=== PATIENT | female | born 1945 | race Caucasian/White ===

== ENCOUNTER → 2016-09-24 | Outpatient (CLI) | payer OTHER ==
[~2016-09-24] MED LIST: ASPI325T39 PO; ATOR-22 PO; LISI10TA PO; METO50TA16 PO
[2016-09-24 18:33] LABS: ALT/SGPT 17 U/L (12-78); BLOOD UREA NITROGEN 18 mg/dl (7-18); BUN/CREATININE RATIO 14.7 (10-20); CALCIUM 9.4 mg/dl (8.5-10.1); CARBON DIOXIDE 24 mmol/L (21-32); CHLORIDE 98 mmol/L (98-107); CHOLESTEROL 164 mg/dl (0-200); GLUCOSE 85 mg/dl (70-99); POTASSIUM 4.8 mmol/L (3.5-5.1); SODIUM 132 mmol/L (136-145); TRIGLYCERIDES 102 mg/dl (0-150); VERY LOW DENSITY LIPOPROT CALC 20 mg/dl
[2016-09-24 18:36] LABS: ALKALINE PHOSPHATASE 157 U/L (45-117); AST/SGOT 19 U/L (15-37); HDL CHOLESTEROL 55 mg/dl
== END | disposition home or self-care (01) ==
LOC: C.LABSPEC 17:29
PROVIDERS: ATTEND Internal Medicine
DX: I25.10 Atherosclerotic heart disease of native coronary artery without angina pectoris (principal); I10 Essential (primary) hypertension; E78.5 Hyperlipidemia, unspecified

== ENCOUNTER → 2016-10-29 | Outpatient (CLI) | payer OTHER ==
--- NOTE | 2016-10-30 08:08 | MAMMOGRAPHY REPORT ---
BILATERAL DIGITAL SCREENING MAMMOGRAM WITH CAD: 10/29/2016 CLINICAL HISTORY: Routine screening. Patient has no complaints. TECHNIQUE: Bilateral CC and MLO views were obtained. Current study was also evaluated with a Compute r Aided Detection (CAD) system. COMPARISON: Comparison is made to exams dated: 09/07/2013 mammogram, 12/14/2011 mammogram - [facility], 05/07/2008, 05/05/2010 mammogram - [facility], 09/13/2006, and 007. BREAST COMPOSITION: There are scattered areas of fibroglandular density in both breasts. FINDINGS: There are a few benign-appearing rodlike calcifications in both breasts. No suspicious ma ss, architectural distortion or cluster of suspicious microcalcifications is seen. IMPRESSION: ACR BI-RADS CATEGORY 2: BENIGN There is no mammographic evidence of malignancy. A 1 year screening mammogram is recommended. The pa tient will receive written notification of the results. Approximately 10% of breast cancers are not detected with mammography. A negative mammographic report should not delay biopsy if a clinically suggestive mass is present. Cristina Berry M.D. ay/:10/29/2016 16:13:05 Quill Machine Tender: Opal Rosa, [facility] letter sent: Normal 1/2 BI-RADS Code: ACR BI-RADS Category 2: Benign
== END | disposition home or self-care (01) ==
LOC: C.MAMM 11:29
PROVIDERS: ATTEND Internal Medicine
DX: Z12.31 Encounter for screening mammogram for malignant neoplasm of breast (principal)

== ENCOUNTER → 2017-03-24 | Day surgery (SDC) | payer OTHER ==
[2017-03-09 07:33] VITALS: Ht 162.6 cm; Wt 67.7 kg
[~2017-03-24] VITALS: Ht 162.6 cm; Wt 67.7 kg
[~2017-03-24] MED LIST changes: +500ML BSS 0.3ML EPI 1:1000PF IRRIG ONE; +ACETAMINOPHEN 325 MG TAB PO PRN; +AMVISC PLUS 0.8ML SYRINGE INT OCU ONE; +ATROPINE SULFATE 0.1 MG/ML 5ML SYR IV PRN; +BSS FLUSH ONE; +ENDOCOAT 0.85ML SYRINGE INT OCU ONE; +EpHEDrine SULFATE INJ 50 MG/ML AMP IV PRN; +EpINEphrine INJ 1MG/ML AMP 1 MG/ML AMP ONE; +LACTATED RINGER'S 1000ML 500 ML IV SCH; +LIDOCAINE 4% OP SOLN DROP CHARGE ONE; +LIDOCAINE 4% OP SOLN DROP CHARGE OPR SCH; +LIDOCAINE HCL 1% MPF 2 ML VIAL ONE; +MIDAZOLAM HCL 1 MG/ML 2ML VIAL ONE; +MIX: 4ML BSS 1ML EPI 1:1000 PF TOP ONE; +MOXIFLOXACIN OPH SOLN PER DROP CHARGE ONE; +POVIDONE-IODINE OP SOLN 30 ML BTL ONE; +PROPARACAINE 0.5% OP SOLN PER DROP CHARGE OPR SCH; +TOBRAMYCIN/DEXAMETHASONE OPH OINT PER APPLN CHARGE ONE
[2017-03-24] MEDS: PHENYLEPHRINE HCL 2.5% OP SOLN PER DROP CHARGE OPR SCH ×3 (06:32→06:42)
[2017-03-24] MEDS: TROPICAMIDE 1% OP SOLN PER DROP CHARGE OPR SCH ×3 (06:33→06:43)
[2017-03-24] MEDS: CYCLOPENTOLATE HCL 1% OP SOLN PER DROP CHARGE OPR SCH ×3 (06:34→06:44)
[2017-03-24] MEDS: MOXIFLOXACIN OPH SOLN PER DROP CHARGE OPR SCH ×3 (06:35→06:45)
--- NOTE | 2017-03-24 06:38 | History & Physical Bridge - SC ---
H&P Re-Evaluation Bridge Note: I have examined the patient, reviewed the History & Physical and in the interval since the performance of the History & Physical I have noted the following changes of clinical significance: No changes noted
--- NOTE | 2017-03-24 07:25 | [facility] Post Operative Brief Note ---
Immediate Operative Summary Operative Date Mar 24, 2017. Pre-Operative Diagnosis Cataract Right Eye Post-Operative Diagnosis Same Procedure(s) Performed Right Cataract Phacoemulsification With Intraocular Lens Implant Surgeon Dr. Melo Elevated Guard Surgeon(s) None Estimated Blood Loss 0 mL Findings right cataract Specimens None Complication(s) None Disposition
--- NOTE | 2017-03-24 07:26 | [facility] Operative Report ---
Operative Report Date of Service Mar 24, 2017. Operative Report DATE OF OPERATION: 03/24/17 PREOPERATIVE DIAGNOSIS: Senile nuclear cataract, right eye POSTOPERATIVE DIAGNOSIS: Senile nuclear cataract, right eye PROCEDURE PERFORMED: Phacoemulsification with intraocular lens implantation, right eye SURGEON: Dr. Osman Melo ANESTHESIA: Topical with 1% intracameral lidocaine and monitored anesthesia care COMPLICATIONS: None DESCRIPTION OF PROCEDURE: After positively identifying the patient both verbally and by wristband in the preoperative area, the right eye was marked as the operative eye. The patient was then brought back to the operating room by the anesthesia and nursing staff where they were given a drop of Lidocaine and betadine into the operative eye. They were then sterilely prepped and draped in the standard fashion typical for ophthalmic surgery. Steri-strips were placed along the upper eyelids to keep the lashes back, and a lid speculum was placed into the operative eye. At this point, a documented time out was performed with members of the ophthalmology, nursing, and anesthesia staffs all agreeing upon the correct patient, correct location for surgery, correct procedure, and correct type and power of intraocular lens to be implanted. The microscope was then swung into position. First, a paracentesis wound was made using a sideport blade. Then, in sequence, 1% preservative-free lidocaine followed by Endocoat viscoelastic was injected into the anterior chamber. Next , the main incision was made with a keratome blade in triplanar fashion. A Malyugin ring was inserted due to poor pupil dilation. A sharp cystotome was introduced into the eye and used to create a tear in the anterior capsule, which was directed into a continuous curvilinear capsulorrhexis using Utrata forceps. Hydrodissection was then performed with BSS on a flat-tip cannula. Next, the phacoemulsification handpiece was introduced into the eye and used to remove the nucleus in a [id number] fashion. This was done without complication and then the irrigation-aspiration handpiece was introduced into the eye and used to remove all remaining cortical and epinuclear material. Amvisc was then injected into the anterior chamber as well as into the capsular bag and using the lens injector system, an MX60 26.5 D lens, serial number [id number], and expiration date 03/2019 was injected into the capsular bag and rotated into the correct position. The Malyugin ring was removed. Next, the irrigation-aspiration handpiece was used to remove all remaining Amvisc. BSS was used to hydrate the main wound, and then BSS was injected into the paracentesis site to reach physiologic pressure and then the main wound was checked and found to be watertight. The patient was given drops of Vigamox and Tobradex ointment into the operative eye, and then the surrounding area was cleaned and dried. A clear plastic shield was placed over the eye and the patient was then sat up and taken from the operating room by the anesthesia staff having tolerated the procedure well and suffering no complications. DISPOSITION: The patient was returned to the recovery room in stable condition. I attest to the content of the Intraoperative Record and any orders documented therein. Any exceptions are noted below.
--- NOTE | 2017-03-24 07:27 | Discharge Instructions-SurgCtr ---
Discharge Instructions Date of Service Mar 24, 2017. Visit Reason for Visit: Cataract Right Eye Discharge Discharge Diagnosis / Problem: right cataract Discharge Goals Goal(s): Decrease discomfort, Improve function Activity Recommendations Activity Limitations: as noted below Anesthesia . Post Anesthesia Instructions: If you have had General Anesthesia or IV Sedation: * Do not drive today. * Resume driving when surgeon permits. * Do not make important decisions or sign legal documents today. * Call surgeon for: 1. Temperature elevations greater than 101 degrees F. 2. Uncontrollable pain. 3. Excessive bleeding. 4. Persistent nausea and vomiting. 5. Medication intolerance (nausea, vomiting or rash). * For nausea and vomiting use only clear liquids such as: tea, soda, bouillon until nausea subsides, then gradually increase diet as tolerated. * If you have any concerns or questions, call your surgeon's office. If physician is unavailable and it is an emergency, call 911 or go to the nearest emergency room. . Instructions / Follow-Up Instructions / Follow-Up ACTIVITY RECOMMENDATIONS: * Light activities. * You may walk outside, read, watch television. * You may notice redness on the white part of the eye and some blurry vision - this is normal. MEDICATIONS: Resume previous medications unless instructed otherwise by your surgeon. Start all eye drops at 9:30 am today: * Eye drops (today): Prednisone - one drop in operative eye every 2 hours while awake Ofloxacin - one drop in operative eye every 2 hours while awake Prolensa - one drop in operative eye daily SPECIAL CARE INSTRUCTIONS: * Tape plastic shield over eye to sleep at night. Call your doctor at with any concerns or problems. FOLLOW UP VISIT: Follow-up with Dr Melo at [facility] as scheduled. Diet Recommendations Home Diet: no limitations Procedures Procedures Performed: Right Cataract Phacoemulsification With Intraocular Lens Implant Pending Studies Studies pending at discharge: no Medical Emergencies . Who to Call and When: Medical Emergencies: If at any time you feel your situation is an emergency, please call 911 immediately. . Non-Emergent Contact Non-Emergency issues call your: Surgeon . . "Provider Documentation" section prepared by Osman Melo. .
[2017-03-24 07:28] VITALS: TEMP 36.4
--- NOTE | 2017-03-24 07:43 | Anesthesiology Progress Note ---
Anesthesia Post Op Note Date & Time Mar 24, 2017 at 07:43 Vital Signs Pain Intensity: 0 Vital Signs Past 12 Hours Date Time Temp Pulse Resp B/P (MAP) Pulse Ox O2 Delivery O2 Flow Rate FiO2 03/24/17 07:28 36.4 56 24 162/78 (106) 98 Room Air 03/24/17 06:24 36.4 61 20 164/79 (107) 98 Room Air Notes Mental Status: alert / awake / arousable, participated in evaluation Nausea / Vomiting: adequately controlled Pain: adequately controlled Airway Patency, RR, SpO2: stable & adequate BP & HR: stable & adequate Hydration State: stable & adequate Anesthetic Complications: no major complications apparent
[2017-03-24 07:54] VITALS: BP 167/90; PULSE 55; O2SAT 98
== END | disposition home or self-care (01) ==
LOC: X.SURG 06:12
PROVIDERS: ATTEND Ophthalmology
DX: H25.11 Age-related nuclear cataract, right eye (principal); E78.00 Pure hypercholesterolemia, unspecified; I10 Essential (primary) hypertension; Z90.710 Acquired absence of both cervix and uterus; F17.210 Nicotine dependence, cigarettes, uncomplicated; Z79.82 Long term (current) use of aspirin; E78.5 Hyperlipidemia, unspecified; I25.10 Atherosclerotic heart disease of native coronary artery without angina pectoris

== ENCOUNTER → 2017-04-07 | Day surgery (SDC) | payer OTHER ==
[2017-04-02 10:56] VITALS: Ht 162.6 cm; Wt 67.7 kg
[~2017-04-07] VITALS: Ht 162.6 cm; Wt 67.7 kg
[~2017-04-07] MED LIST changes: +LABETALOL HCL IV 5 MG/ML 20ML IV ONE; +LIDOCAINE 4% OP SOLN DROP CHARGE OPL SCH; -LIDOCAINE 4% OP SOLN DROP CHARGE OPR SCH; +PROPARACAINE 0.5% OP SOLN PER DROP CHARGE OPL SCH; -PROPARACAINE 0.5% OP SOLN PER DROP CHARGE OPR SCH
[2017-04-07] MEDS: PHENYLEPHRINE HCL 2.5% OP SOLN PER DROP CHARGE OPL SCH ×3 (08:51→09:01)
[2017-04-07] MEDS: TROPICAMIDE 1% OP SOLN PER DROP CHARGE OPL SCH ×3 (08:52→09:02)
[2017-04-07] MEDS: CYCLOPENTOLATE HCL 1% OP SOLN PER DROP CHARGE OPL SCH ×3 (08:53→09:03)
[2017-04-07] MEDS: MOXIFLOXACIN OPH SOLN PER DROP CHARGE OPL SCH ×3 (08:54→09:04)
--- NOTE | 2017-04-07 09:53 | [facility] Post Operative Brief Note ---
Immediate Operative Summary Operative Date Apr 07, 2017. Pre-Operative Diagnosis Cataract Left Eye Post-Operative Diagnosis Same Procedure(s) Performed Left Cataract Phacoemulsification With Intraocular Lens Implant Surgeon Dr. Melo Senior Quality Control Technician Surgeon(s) None Estimated Blood Loss 0 mL Findings left cataract Specimens None Complication(s) None Disposition
--- NOTE | 2017-04-07 09:54 | [facility] Operative Report ---
Operative Report Date of Service Apr 07, 2017. Operative Report DATE OF OPERATION: 04/07/17 PREOPERATIVE DIAGNOSIS: Senile nuclear cataract, left eye POSTOPERATIVE DIAGNOSIS: Senile nuclear cataract, left eye PROCEDURE PERFORMED: Phacoemulsification with intraocular lens implantation, left eye SURGEON: Dr. Osman Melo ANESTHESIA: Topical with 1% intracameral lidocaine and monitored anesthesia care COMPLICATIONS: None DESCRIPTION OF PROCEDURE: After positively identifying the patient both verbally and by wristband in the preoperative area, the left eye was marked as the operative eye. The patient was then brought back to the operating room by the anesthesia and nursing staff where they were given a drop of Lidocaine and betadine into the operative eye. They were then sterilely prepped and draped in the standard fashion typical for ophthalmic surgery. Steri-strips were placed along the upper eyelids to keep the lashes back, and a lid speculum was placed into the operative eye. At this point, a documented time out was performed with members of the ophthalmology, nursing, and anesthesia staffs all agreeing upon the correct patient, correct location for surgery, correct procedure, and correct type and power of intraocular lens to be implanted. The microscope was then swung into position. First, a paracentesis wound was made using a sideport blade. Then, in sequence, 1% preservative-free lidocaine followed by Endocoat viscoelastic was injected into the anterior chamber. Next , the main incision was made with a keratome blade in triplanar fashion. A Malyugin ring was inserted due to poor pupil dilation. A sharp cystotome was introduced into the eye and used to create a tear in the anterior capsule, which was directed into a continuous curvilinear capsulorrhexis using Utrata forceps. Hydrodissection was then performed with BSS on a flat-tip cannula. Next, the phacoemulsification handpiece was introduced into the eye and used to remove the nucleus in a [id number] fashion. This was done without complication and then the irrigation-aspiration handpiece was introduced into the eye and used to remove all remaining cortical and epinuclear material. Amvisc was then injected into the anterior chamber as well as into the capsular bag and using the lens injector system, an MX60 27.0 D lens, serial number [id number], and expiration date 12/2017 was injected into the capsular bag and rotated into the correct position. The Malyugin ring was removed. Next, the irrigation-aspiration handpiece was used to remove all remaining Amvisc. BSS was used to hydrate the main wound, and then BSS was injected into the paracentesis site to reach physiologic pressure and then the main wound was checked and found to be watertight. The patient was given drops of Vigamox and Tobradex ointment into the operative eye, and then the surrounding area was cleaned and dried. A clear plastic shield was placed over the eye and the patient was then sat up and taken from the operating room by the anesthesia staff having tolerated the procedure well and suffering no complications. DISPOSITION: The patient was returned to the recovery room in stable condition. I attest to the content of the Intraoperative Record and any orders documented therein. Any exceptions are noted below.
[2017-04-07 09:55] VITALS: TEMP 36.5
--- NOTE | 2017-04-07 09:55 | Discharge Instructions-SurgCtr ---
Discharge Instructions Date of Service Apr 07, 2017. Visit Reason for Visit: Cataract Left Eye Discharge Discharge Diagnosis / Problem: left cataract Discharge Goals Goal(s): Decrease discomfort, Improve function Activity Recommendations Activity Limitations: as noted below Anesthesia . Post Anesthesia Instructions: If you have had General Anesthesia or IV Sedation: * Do not drive today. * Resume driving when surgeon permits. * Do not make important decisions or sign legal documents today. * Call surgeon for: 1. Temperature elevations greater than 101 degrees F. 2. Uncontrollable pain. 3. Excessive bleeding. 4. Persistent nausea and vomiting. 5. Medication intolerance (nausea, vomiting or rash). * For nausea and vomiting use only clear liquids such as: tea, soda, bouillon until nausea subsides, then gradually increase diet as tolerated. * If you have any concerns or questions, call your surgeon's office. If physician is unavailable and it is an emergency, call 911 or go to the nearest emergency room. . Instructions / Follow-Up Instructions / Follow-Up ACTIVITY RECOMMENDATIONS: * Light activities. * You may walk outside, read, watch television. * You may notice redness on the white part of the eye and some blurry vision - this is normal. MEDICATIONS: Resume previous medications unless instructed otherwise by your surgeon. Start all eye drops at 12 pm today: * Eye drops (today): Prednisone - one drop in operative eye every 2 hours while awake Ofloxacin - one drop in operative eye every 2 hours while awake Prolensa - one drop in operative eye daily SPECIAL CARE INSTRUCTIONS: * Tape plastic shield over eye to sleep at night. Call your doctor at with any concerns or problems. FOLLOW UP VISIT: Follow-up with Dr Melo at [facility] as scheduled. Diet Recommendations Home Diet: no limitations Procedures Procedures Performed: Left Cataract Phacoemulsification With Intraocular Lens Implant Pending Studies Studies pending at discharge: no Medical Emergencies . Who to Call and When: Medical Emergencies: If at any time you feel your situation is an emergency, please call 911 immediately. . Non-Emergent Contact Non-Emergency issues call your: Surgeon . . "Provider Documentation" section prepared by Osman Melo. .
[2017-04-07 10:20] VITALS: BP 175/97; PULSE 73; O2SAT 98
--- NOTE | 2017-04-07 10:25 | Anesthesia Progress Nt - [facility] ---
Anesthesia Post Op Note Date & Time Apr 07, 2017 at 10:25 Vital Signs Pain Intensity: 0 Vital Signs Past 12 Hours Date Time Temp Pulse Resp B/P (MAP) Pulse Ox O2 Delivery O2 Flow Rate FiO2 04/07/17 10:20 73 22 175/97 (123) 98 Room Air 04/07/17 09:55 36.5 63 20 193/70 (111) 98 Room Air 04/07/17 08:40 36.6 54 16 193/97 (129) 97 Room Air Notes Mental Status: alert / awake / arousable, participated in evaluation Pt Amnestic to Procedure: Yes Nausea / Vomiting: adequately controlled Pain: adequately controlled Airway Patency, RR, SpO2: stable & adequate BP & HR: stable & adequate Hydration State: stable & adequate Anesthetic Complications: no major complications apparent
== END | disposition home or self-care (01) ==
LOC: X.SURG 08:11
PROVIDERS: ATTEND Ophthalmology
DX: H25.12 Age-related nuclear cataract, left eye (principal); I10 Essential (primary) hypertension; E78.00 Pure hypercholesterolemia, unspecified; E78.5 Hyperlipidemia, unspecified; Z90.710 Acquired absence of both cervix and uterus; F17.210 Nicotine dependence, cigarettes, uncomplicated; Z79.82 Long term (current) use of aspirin; Z98.41 Cataract extraction status, right eye

== ENCOUNTER 2022-03-07 11:37 | Observation (INO) ==
[2022-03-07 12:04] LABS: Basophils # (auto) 0.03 K/uL (0-0.2); Basophils % (auto) 0.2 %; Eosinophils # (auto) 0.01 K/uL (0-0.50); Eosinophils % (auto) 0.1 %; Hematocrit (blood only) 38.8 % (34.1-44.9); Hemoglobin 13.1 g/dl (12.0-16.0); Immature Granulocytes # (auto) 0.22 K/uL (0.00-0.02); Immature Granulocytes % (auto) 1.3 %; Lymphocytes # (auto) 2.16 K/uL (1.2-3.4); Lymphocytes % (auto) 13.2 %; Mean Corpuscular Hemoglobin 29.9 pg (25.0-34.0); Mean Corpuscular Hgb Conc 33.8 g/dL (32.0-36.0); Mean Corpuscular Volume 88.6 fL (80.0-100.0); Mean Platelet Volume 9.6 fL (9.4-12.3); Monocytes # (auto) 1.18 K/uL (0.24-0.82); Monocytes % (auto) 7.2 %; Neutrophils # (auto) 12.72 K/uL (1.4-6.5); Platelet Count 313 K/uL (130-400); RDW Coefficient of Variation 14.7 % (11.5-14.5); RDW Standard Deviation 47.9 fL (36.4-46.3); Red Blood Count 4.38 M/uL (3.93-5.22); White Blood Count 16.32 K/ul (4.8-10.8)
--- NOTE | 2022-03-07 12:21 | XRay Report ---
SINGLE VIEW CHEST CLINICAL HISTORY: Dyspnea FINDINGS: An AP, portable, upright chest radiograph is compared to study dated 01/03/2021. The examina tion is degraded by portable technique and patient rotation. The heart is mildly enlarged noting ath erosclerotic calcification of the thoracic aorta. The pulmonary vasculature is noncongested. Subpleur al reticulation is seen throughout both lungs. Emphysema and chronic interstitial thickening is simil ar to previous. There is bibasilar scarring/atelectasis. No airspace consolidation or large pleural e ffusion is identified. No pneumothorax is seen. The skeletal structures are osteopenic. The bony thor ax is grossly intact. IMPRESSION: No acute cardiopulmonary abnormality. ACT 112: Negative or not required by law. Electronically signed by: Edward Rossi M.D. 03/07/2022 12:22 PM
[2022-03-07 12:29] LABS: Albumin Globulin Ratio 1.3 (0.9-2); Albumin Level 3.9 gm/dl (3.4-5.0); BUN Creatinine Ratio 21.2 (10-20); Bilirubin,Total 0.5 mg/dl (0.2-1.0); Calcium 9.4 mg/dl (8.5-10.1); Creatinine Clr Calc Pharmacy 37.8 ml/min; Est GFR (African American) 59.6 ml/min; Est GFR (Non-African American) 51.4 ml/min; Magnesium 2.1 mg/dl (1.7-2.4); Potassium 3.9 mmol/L (3.5-5.1); Total Protein 6.9 gm/dl (6.0-8.3)
[2022-03-07 12:30] LABS: Partial Thromboplastin Ratio 0.8; Partial Thromboplastin Time 21.7 Seconds (21.0-31.0); Prothrombin Time 10.5 Seconds (9.0-12.0)
[2022-03-07 12:54] LABS: Influenza A virus by PCR Negative (Neg); Influenza B virus by PCR Negative (Neg); RSV by PCR Negative (Neg)
[2022-03-07] MEDS ORDERED: ALBUT/IPRATROP 3MG/0.5MG NEB 3 ML VIAL NEB ONE (13:04)
[2022-03-07] MEDS ORDERED: LABETALOL HCL IV 5 MG/ML 20ML IV STA (13:04)
[2022-03-07] MEDS ORDERED: methylPREDNISolone 125 MG/2 ML VIAL IV STA (13:07)
--- NOTE | 2022-03-07 13:13 | Emergency Department Note ---
Impression & Plan COVID, Hypertensive urgency, Right leg pain, Weakness, COPD (chronic obstructive pulmonary disease) ED Provider Note Provider: Milton Lantigua MD DATE OF SERVICE: 03/07/2022 CHIEF COMPLAINT:Shortness of breath, weakness HISTORY OF PRESENT ILLNESS: Patient is a 76-year-old female past medical history including COPD, hypertension, arthritis presenting here today with family. Has been sick for 2 to 3 weeks with cough and cold symptoms. States she feels a bit short of breath and wheezy. Has been having some increased weakness and some pain in her right leg. Seen at the primary doctor's office earlier this week and started on prednisone burst as well as using albuterol and ipratropium at home. States she did not take her blood pressure medicine yet today. States has been very weak and now unable to get out of bed and get around the house. Patient denies any numbness or tingling. Denies headache. Denies sore throat. Denies nausea, vomiting, diarrhea, or abdominal pain. Denies significant leg swelling. REVIEW OF SYSTEMS: A total of 10 review of systems was obtained and negative except as stated above in the HPI. PAST MEDICAL HISTORY: As noted above MEDICATIONS:reviewed home medications SOCIAL HISTORY: and lives with , smoker PHYSICAL EXAM: GENERAL: alert and oriented in no acute distress on stretcher, very hard of hearing Head: normocephalic and atraumatic EYES: No injection, discharge or icterus. NECK: Trachea midline. Supple. ENT: Mucous membranes pink and moist. LUNGS: Airway patent. No retractions. Breath sounds with diffuse expiratory wheeze HEART: Regular rate and rhythm. No chest wall tenderness ABDOMEN: Soft and non-tender, without guarding or rebound. SKIN: Acyanotic, warm, dry, without rashes EXTREMITIES: Without swelling, tenderness or deformity NEUROLOGICAL: No focal deficits. No aphasia. No facial droop or slurred speech. Normal strength and tone in the extremities. Sensation to gross touch normal. EK bpm normal sinus rhythm. No PVC or PAC. No acute ST segment elevation with a QTC of 433. CONTINUOUS CARDIAC MONITORING: was ordered and showed a heart rate of 70s-90s bpm in normal sinus rhythm Patient's laboratory studies and imaging reviewed. Differential includes Infection, dehydration, metabolic abnormality, hypo/hyperglycemia, electrolyte disturbance, anemia, hypoxia, cardiac sources, intracerebral event, toxicologic, neurologic, as well as other pathologies. IMPRESSION/MEDICAL DECISION MAKING: Very weak maybe a little bit of pain in the right leg but no significant swelling. We will complete an ultrasound to exclude DVT although somewhat lower suspicion. Significant hypertension. History of poorly controlled hypertension recent steroids likely not helping. Given some additional steroid and DuoNeb but she is wheezy. COVID test returns positive likely explaining much of her symptoms. Ongoing for more than a week now. Blood work with a leukocytosis likely related to steroids and lower suspicion for bacterial infection especially in light of the x-ray which is reassuring. Troponin is minimally elevated. Unsure of baseline. Not having active chest pain. EKG without STEMI. With hypertension and her severe weakness discussed with family who feels she is too weak to go home. Blood pressure still poorly controlled even after labetalol. Ultrasound of the leg still pending. Lower suspicion for PE. Hospitalist contacted for further care here. DIAGNOSIS: COVID 19, weakness, shortness of breath, right leg pain DISPOSITION: Hospitalist will evaluate Patient was agreeable with this plan. Past Med/Surg History Medical History (Updated 03/07/22 @ 17:22 by Milton Lantigua M.D.) Fracture of distal end of right radius with malunion History of anxiety Hyperlipidemia Hypertension Osteoarthritis Radius fracture RT Surgical History H/O carotid endarterectomy LEFT H/O wrist surgery RT 40 YRS AGO H/O: hysterectomy History of cataract surgery RT/LEFT History of colonoscopy History of surgery on right wrist Right Distal Radius Open Reduction Internal Fixation History of tooth extraction Family History Brother Family history of diabetes mellitus Social History Smoking Status: Current every day smoker Cigarettes Per Day: 1.5 PPD; Second Hand Exposure: Yes; Hx Alcohol Use: No Hx Substance Use: No Preferred Language: Greek Communication Ability: Effective [employer] Required: No Beliefs That Will Affect Care: None marital status: Current Living Situation: Spouse current occupational status: employed Feels Safe at Home: Yes Assistive Devices: Hearing Aid - Bilateral Allergies Allergies Allergy/AdvReac Type Severity Reaction Status Date / Time No Known Allergies Allergy Verified 03/07/22 15:22 Home Meds Home Medications Medication Instructions Recorded Confirmed aspirin 325 mg tablet 325 mg PO HS 07/25/19 03/07/22 acetaminophen 500 mg tablet 500 mg PO Q6H PRN Pain 08/04/19 03/07/22 (Tylenol Extra Strength) lisinopril 10 mg tablet 30 mg PO HS 03/02/22 03/07/22 cholecalciferol (vitamin D3) 1,250 50,000 unit PO WK 03/07/22 03/07/22 mcg (50,000 unit) capsule Previous Rx's Medication Instructions Recorded meloxicam 15 mg tablet 15 mg PO DAILY PRN pain #30 tabs 09/18/19 tramadol 50 mg tablet 50 - 100 mg PO Q6H PRN pain #24 11/22/19 tabs metoprolol tartrate 50 mg tablet 100 mg PO HS #180 tabs 01/06/22 atorvastatin 20 mg tablet 20 mg PO HS #90 tabs 01/19/22 albuterol sulfate 90 mcg/actuation 2 puff inhalation QID PRN 03/02/22 aerosol inhaler shortness of breath or wheezing #6.7 grams ipratropium bromide 17 2 puff inhalation QID PRN 03/02/22 mcg/actuation HFA aerosol inhaler shortness of breath or wheezing #12.9 grams prednisone 20 mg tablet 40 mg PO DAILY #10 tabs 03/02/22 Results & Data (ED) Vital Signs Vital Signs - 24 hr 03/07/22 11:44 03/07/22 12:21 03/07/22 12:21 Temperature 36.2 C L Temperature Source Temporal Artery Scan Pulse Rate 92 H Pulse Rate [Finger] Pulse Rate from SpO2 Sensor Respiratory Rate 16 Respiratory Effort / Characteristics Non-Labored Respiratory Depth Normal Respiratory Pattern Blood Pressure 192/86 H Blood Pressure [Right Arm] Blood Pressure Mean 121 Blood Pressure Mean [Right Arm] Blood Pressure Position [Right Arm] Pulse Oximetry 96 99 99 Oxygen Delivery Method Room Air Room Air Room Air Sepsis Recent Fever Within 48 Hours No Sepsis New/Unexplained Change in Mental Status No Sepsis Action Taken by Nursing No Action Required 03/07/22 12:22 03/07/22 12:23 03/07/22 13:28 Temperature Temperature Source Pulse Rate Pulse Rate [Finger] 85 Pulse Rate from SpO2 Sensor Respiratory Rate 19 26 H Respiratory Effort / Characteristics Non-Labored Spontaneous Labored SOB on Exertion Respiratory Depth Shallow Respiratory Pattern Tachypnea Blood Pressure Blood Pressure [Right Arm] 213/73 H Blood Pressure Mean Blood Pressure Mean [Right Arm] 119 Blood Pressure Position [Right Arm] Lying Pulse Oximetry 98 97 99 Oxygen Delivery Method Room Air Room Air Room Air Sepsis Recent Fever Within 48 Hours Sepsis New/Unexplained Change in Mental Status Sepsis Action Taken by Nursing 03/07/22 13:00 03/07/22 13:35 03/07/22 13:39 Temperature Temperature Source Pulse Rate 77 Pulse Rate [Finger] 77 Pulse Rate from SpO2 Sensor Respiratory Rate 24 20 Respiratory Effort / Characteristics Spontaneous Respiratory Depth Respiratory Pattern Blood Pressure 223/78 H 224/80 H Blood Pressure [Right Arm] Blood Pressure Mean 126 128 Blood Pressure Mean [Right Arm] Blood Pressure Position [Right Arm] Pulse Oximetry 98 97 Oxygen Delivery Method Room Air Room Air Sepsis Recent Fever Within 48 Hours Sepsis New/Unexplained Change in Mental Status Sepsis Action Taken by Nursing 03/07/22 13:40 03/07/22 13:45 03/07/22 13:50 Temperature Temperature Source Pulse Rate 74 72 Pulse Rate [Finger] Pulse Rate from SpO2 Sensor Respiratory Rate 20 26 H Respiratory Effort / Characteristics Respiratory Depth Respiratory Pattern Blood Pressure 225/70 H 180/76 H 200/74 H Blood Pressure [Right Arm] Blood Pressure Mean 121 110 116 Blood Pressure Mean [Right Arm] Blood Pressure Position [Right Arm] Pulse Oximetry 100 100 100 Oxygen Delivery Method Nebulizer Nebulizer Nebulizer Sepsis Recent Fever Within 48 Hours Sepsis New/Unexplained Change in Mental Status Sepsis Action Taken by Nursing 03/07/22 13:55 03/07/22 14:00 03/07/22 14:00 Temperature Temperature Source Pulse Rate 70 75 Pulse Rate [Finger] Pulse Rate from SpO2 Sensor 70 Respiratory Rate 26 H 41 H 23 Respiratory Effort / Characteristics Respiratory Depth Respiratory Pattern Blood Pressure 205/71 H 213/64 H 213/64 H Blood Pressure [Right Arm] Blood Pressure Mean 115 113 113 Blood Pressure Mean [Right Arm] Blood Pressure Position [Right Arm] Pulse Oximetry 100 100 100 Oxygen Delivery Method Nebulizer Nebulizer Nebulizer Sepsis Recent Fever Within 48 Hours Sepsis New/Unexplained Change in Mental Status Sepsis Action Taken by Nursing 03/07/22 14:05 03/07/22 14:10 03/07/22 14:15 Temperature Temperature Source Pulse Rate 75 Pulse Rate [Finger] Pulse Rate from SpO2 Sensor Respiratory Rate 23 19 Respiratory Effort / Characteristics Respiratory Depth Respiratory Pattern Blood Pressure 202/72 H 213/64 H 213/69 H Blood Pressure [Right Arm] Blood Pressure Mean 115 113 117 Blood Pressure Mean [Right Arm] Blood Pressure Position [Right Arm] Pulse Oximetry 100 95 100 Oxygen Delivery Method Nebulizer Nebulizer Nebulizer Sepsis Recent Fever Within 48 Hours Sepsis New/Unexplained Change in Mental Status Sepsis Action Taken by Nursing 03/07/22 14:20 03/07/22 14:25 03/07/22 14:30 Temperature Temperature Source Pulse Rate Pulse Rate [Finger] Pulse Rate from SpO2 Sensor Respiratory Rate 18 Respiratory Effort / Characteristics Respiratory Depth Respiratory Pattern Blood Pressure 210/75 H 181/73 H 213/72 H Blood Pressure [Right Arm] Blood Pressure Mean 120 109 119 Blood Pressure Mean [Right Arm] Blood Pressure Position [Right Arm] Pulse Oximetry 100 100 100 Oxygen Delivery Method Nebulizer Nebulizer Nebulizer Sepsis Recent Fever Within 48 Hours Sepsis New/Unexplained Change in Mental Status Sepsis Action Taken by Nursing 03/07/22 15:01 03/07/22 15:30 03/07/22 16:02 Temperature Temperature Source Pulse Rate 93 H 93 H Pulse Rate [Finger] Pulse Rate from SpO2 Sensor Respiratory Rate 18 28 H Respiratory Effort / Characteristics Respiratory Depth Respiratory Pattern Blood Pressure 213/75 H 197/69 H 222/65 H Blood Pressure [Right Arm] Blood Pressure Mean 121 111 117 Blood Pressure Mean [Right Arm] Blood Pressure Position [Right Arm] Pulse Oximetry 96 97 98 Oxygen Delivery Method Room Air Room Air Room Air Sepsis Recent Fever Within 48 Hours Sepsis New/Unexplained Change in Mental Status Sepsis Action Taken by Nursing 03/07/22 16:31 03/07/22 16:50 Temperature Temperature Source Pulse Rate 87 85 Pulse Rate [Finger] Pulse Rate from SpO2 Sensor Respiratory Rate 20 19 Respiratory Effort / Characteristics Respiratory Depth Respiratory Pattern Blood Pressure 160/62 H 203/117 H Blood Pressure [Right Arm] Blood Pressure Mean 94 145 Blood Pressure Mean [Right Arm] Blood Pressure Position [Right Arm] Pulse Oximetry 98 100 Oxygen Delivery Method Room Air Room Air Sepsis Recent Fever Within 48 Hours Sepsis New/Unexplained Change in Mental Status Sepsis Action Taken by Nursing Laboratory Data Result diagrams: 03/07/22 11:55 03/07/22 11:55 Lab Results 03/07/22 03/07/22 03/07/22 Range/Units 11:55 11:55 11:55 WBC 16.32 H (4.8-10.8) K/ul RBC 4.38 (3.93-5.22) M/uL Hgb 13.1 (12.0-16.0) g/dl Hct 38.8 (34.1-44.9) % MCV 88.6 (80.0-100.0) fL MCH 29.9 (25.0-34.0) pg MCHC 33.8 (32.0-36.0) g/dL RDW Std Deviation 47.9 H (36.4-46.3) fL RDW Coeff of Angela 14.7 H (11.5-14.5) % Plt Count 313 (130-400) K/uL MPV 9.6 (9.4-12.3) fL Immature Gran % (Auto) 1.3 % Neut % (Auto) 78.0 % Lymph % (Auto) 13.2 % [place] % (Auto) 7.2 % Eos % (Auto) 0.1 % Baso % (Auto) 0.2 % Neut # (Auto) 12.72 H (1.4-6.5) K/uL Lymph # (Auto) 2.16 (1.2-3.4) K/uL [place] # (Auto) 1.18 H (0.24-0.82) K/uL Eos # (Auto) 0.01 (0-0.50) K/uL Baso # (Auto) 0.03 (0-0.2) K/uL Immature Gran # (Auto) 0.22 H (0.00-0.02) K/uL PT 10.5 (9.0-12.0) Seconds INR 1.0 (0.9-1.1) APTT 21.7 (21.0-31.0) Seconds PTT Ratio 0.8 Sodium 134 L (136-145) mmol/L Potassium 3.9 (3.5-5.1) mmol/L Chloride 98 (98-107) mmol/L Carbon Dioxide 27 (21-32) mmol/L Anion Gap 9 (3-11) BUN 22 (6-23) mg/dl Creatinine 1.04 (0.6-1.2) mg/dl Est Cr Clr Drug Dosing 37.8 ml/min Est GFR ( Amer) 59.6 ml/min Est GFR (Non-Af Amer) 51.4 ml/min BUN/Creatinine Ratio 21.2 H (10-20) Glucose 100 H (70-99(Fasting)) mg/dl Calcium 9.4 (8.5-10.1) mg/dl Magnesium 2.1 (1.7-2.4) mg/dl Total Bilirubin 0.5 (0.2-1.0) mg/dl AST 15 (13-39) U/L ALT 12 (7-52) U/L Alkaline Phosphatase 118 H (34-104) U/L Troponin I High Sens (0-14) pg/ml Total Protein 6.9 (6.0-8.3) gm/dl Albumin 3.9 (3.4-5.0) gm/dl Globulin 3.0 (2.5-4.0) gm/dl Albumin/Globulin Ratio 1.3 (0.9-2) SARS-CoV-2 (PCR) (Negative) Influenza Type A (PCR) (Neg) Influenza Type B (PCR) (Neg) RSV (RT-PCR) (Neg) 03/07/22 03/07/22 Range/Units 12:03 13:21 WBC (4.8-10.8) K/ul RBC (3.93-5.22) M/uL Hgb (12.0-16.0) g/dl Hct (34.1-44.9) % MCV (80.0-100.0) fL MCH (25.0-34.0) pg MCHC (32.0-36.0) g/dL RDW Std Deviation (36.4-46.3) fL RDW Coeff of Angela (11.5-14.5) % Plt Count (130-400) K/uL MPV (9.4-12.3) fL Immature Gran % (Auto) % Neut % (Auto) % Lymph % (Auto) % [place] % (Auto) % Eos % (Auto) % Baso % (Auto) % Neut # (Auto) (1.4-6.5) K/uL Lymph # (Auto) (1.2-3.4) K/uL [place] # (Auto) (0.24-0.82) K/uL Eos # (Auto) (0-0.50) K/uL Baso # (Auto) (0-0.2) K/uL Immature Gran # (Auto) (0.00-0.02) K/uL PT (9.0-12.0) Seconds INR (0.9-1.1) APTT (21.0-31.0) Seconds PTT Ratio Sodium (136-145) mmol/L Potassium (3.5-5.1) mmol/L Chloride (98-107) mmol/L Carbon Dioxide (21-32) mmol/L Anion Gap (3-11) BUN (6-23) mg/dl Creatinine (0.6-1.2) mg/dl Est Cr Clr Drug Dosing ml/min Est GFR ( Amer) ml/min Est GFR (Non-Af Amer) ml/min BUN/Creatinine Ratio (10-20) Glucose (70-99(Fasting)) mg/dl Calcium (8.5-10.1) mg/dl Magnesium (1.7-2.4) mg/dl Total Bilirubin (0.2-1.0) mg/dl AST (13-39) U/L ALT (7-52) U/L Alkaline Phosphatase (34-104) U/L Troponin I High Sens 37.6 H (0-14) pg/ml Total Protein (6.0-8.3) gm/dl Albumin (3.4-5.0) gm/dl Globulin (2.5-4.0) gm/dl Albumin/Globulin Ratio (0.9-2) SARS-CoV-2 (PCR) POSITIVE A* (Negative) Influenza Type A (PCR) Negative (Neg) Influenza Type B (PCR) Negative (Neg) RSV (RT-PCR) Negative (Neg) Administered Medications Lactated Ringer's (Lr) 1,000 mls @ 80 mls/hr IV .[id number] NOBLE Stop: 03/08/22 04:29 Last Admin: 03/07/22 16:58 Dose: 80 mls/hr Documented By: ALLYN Nicotine (Nicotine 21 Mg/24 Hr Tdsy) 21 mg TD QAM NOBLE Stop: 04/06/22 15:59 Last Admin: 03/07/22 16:49 Dose: 21 mg Documented By: ALLYN Discontinued Medications Albuterol (Albut/Ipratrop 3mg/0.5mg Neb 3 Ml Vial) 12 ml NEB ONE ONE; Protocol Stop: 03/07/22 13:05 Last Admin: 03/07/22 13:34 Dose: 12 ml Documented By: MELISSA Labetalol HCl (Labetalol Hcl Iv 5 Mg/Ml 20ml) 10 mg IV NOW STA Stop: 03/07/22 13:05 Last Admin: 03/07/22 13:37 Dose: 10 mg Documented By: ALLYN Co-signed By: RAJAN Lisinopril (Lisinopril 10 Mg Tab) 30 mg PO NOW STA Stop: 03/07/22 15:49 Last Admin: 03/07/22 16:50 Dose: 30 mg Documented By: ALLYN Methylprednisolone (Methylprednisolone 125 Mg/2 Ml Vial) 60 mg IV NOW STA Stop: 03/07/22 13:08 Last Admin: 03/07/22 13:38 Dose: 60 mg Documented By: ALLYN Metoprolol Tartrate (Metoprolol Tartrate 100 Mg Tab) 100 mg PO NOW STA Stop: 03/07/22 15:49 Last Admin: 03/07/22 16:49 Dose: 100 mg Documented By: ALLYN Imaging Data Radiologist's Impression: Chest X-Ray 03/07/22 11:42 SINGLE VIEW CHEST CLINICAL HISTORY: Dyspnea FINDINGS: An AP, portable, upright chest radiograph is compared to study dated 01/03/2021. The examination is degraded by portable technique and patient rotation. The heart is mildly enlarged noting atherosclerotic calcification of the thoracic aorta. The pulmonary vasculature is noncongested. Subpleural reticulation is seen throughout both lungs. Emphysema and chronic interstitial thickening is similar to previous. There is bibasilar scarring/atelectasis. No airspace consolidation or large pleural effusion is identified. No pneumothorax is seen. The skeletal structures are osteopenic. The bony thorax is grossly intact. IMPRESSION: No acute cardiopulmonary abnormality. ACT 112: Negative or not required by law. Electronically signed by: Edward Rossi M.D. 03/07/2022 12:22 PM Discharge Plan Visit Data Chief Complaint: Shortness of Breath/Dyspnea Stated Complaint: SOB,CHEST PAIN,LEG PAIN,DEHYDRATION ED Provider: Milton Lantigua Discharge Problem: COVID, Hypertensive urgency, Right leg pain, Weakness, COPD (chronic obstructive pulmonary disease) Patient Disposition: Being Evaluated by Hospitalist Forms Stand Alone Forms: My [facility] Prescriptions Prescriptions: No Action metoprolol tartrate 50 mg tablet 100 mg PO HS Qty: 180 2RF atorvastatin 20 mg tablet 20 mg PO HS Qty: 90 3RF meloxicam 15 mg tablet 15 mg PO DAILY PRN (Reason: pain) Qty: 30 2RF Rx Instructions: Take with food prednisone 20 mg tablet 40 mg PO DAILY Qty: 10 0RF Rx Instructions: Take 2 tablets daily for 5 days albuterol sulfate 90 mcg/actuation HFA aerosol inhaler 2 puff inhalation QID PRN (Reason: shortness of breath or wheezing) Qty: 6.7 2RF ipratropium bromide 17 mcg/actuation HFA aerosol inhaler 2 puff inhalation QID PRN (Reason: shortness of breath or wheezing) Qty: 12.9 2RF lisinopril 10 mg tablet 30 mg PO HS acetaminophen [Tylenol Extra Strength] 500 mg Tablet 500 mg PO Q6H PRN (Reason: Pain) tramadol 50 mg tablet 50 - 100 mg PO Q6H PRN (Reason: pain) Qty: 24 0RF aspirin 325 mg Tablet 325 mg PO HS cholecalciferol (vitamin D3) 1,250 mcg (50,000 unit) capsule 50,000 unit PO WK Rx Instructions: Take 1 capsule once per week for 8 weeks then call PCP for next step Referrals Referrals: Marissa Leon MD [Primary Care Provider] -
[2022-03-07 13:50] LABS: SARS CoV2 RNA(COVID-19) Ceph POSITIVE (Negative)
--- NOTE | 2022-03-07 14:53 | Electrocardiogram Report ---
Test Reason : Blood Pressure : / mmHG Vent. Rate : 089 BPM Atrial Rate : 089 BPM P-R Int : 154 ms QRS Dur : 080 ms QT Int : 356 ms P-R-T Axes : 071 033 098 degrees QTc Int : 433 ms Normal sinus rhythm Left ventricular hypertrophy with repolarization abnormality Cannot rule out Inferior infarct , age undetermined Abnormal ECG When compared with ECG of 17-NOV-2019 10:02, [place] interval has decreased Vent. rate has increased BY 36 BPM Minimal criteria for Inferior infarct are now Present Confirmed by Say Miguel ([id number]) on 03/07/2022 2:53:06 PM Referred By: Confirmed By:Say Miguel
--- NOTE | 2022-03-07 15:06 | History & Physical Report ---
Date of Service March 07, 2022 Assessment & Plan (1) Hypertensive urgency: Plan: -Admit to the PCU -Patient is currently afebrile, hypertensive at 197/69, and stable on RA -Patient has a long history of hypertension, was recently seen by her PCP on 03/02 and her dose of lisinopril was increased from 20 mg to 30 mg. The patient did not have any of her antihypertensives today. Was given 10 mg IV labetalol prior to admission. -No acute neurologic defects on exam, besides a troponin of 37 there are no other signs of end organ damage -Will give her her 30 mg PO lisinopril and 100 mg PO metoprolol tartrate now -Monitor on tele -Will add prn IV labetalol for systolic BP > 180 mmhg -Will likely have to continue adjusting her antihypertensives -AM CBC and BMP (2) COVID: Plan: -Noted to be positive today on ED labs -Currently stable on RA -Was not vaccinated -Explained that she is high risk for decompensation but will treat her symptomatically for now -She is out of the window for Remdesivir as her symptoms started over a week ago -If she would become hypoxic would start Dexamethasone -Continue home breathing treatments, incentive spirometry, flutter therapy, prn duoneb, and robitussin for cough -Monitor on tele and pulse oximetry (3) Elevated troponin: Plan: -Initial high sensitivity Troponin elevated at 37 -No chest pain at the time of the exam at rest, chest pain is reproducible with palpation, no acute ST segment or T-wave changes on ECG -Will repeat 2 hour troponin now -Monitor on tele (4) COPD with acute exacerbation: Plan: -Patient has increased cough and subjective SOB, currently stable on RA -Will continue to treat for COPD exacerbation with her active covid infection -Was already given 60 mg IV methyprednisone in the ED, will continue with 40 mg daily for now starting tomorrow -Chest xray was clear, will hold antibiotics for now -Rest of treatment per the COIVD plan (5) Right leg pain: Plan: -Patient has been having right lower extremity leg pain over the past week -No acute trauma, swelling, or erythema on exam -Right LE venous doppler ordered by the ED, will follow results -Will also get xrays of the right femur and knee to evaluate (6) Hyperlipidemia: Plan: -Continue statin (7) Tobacco use: Plan: -Nicotine patch ordered (8) Generalized weakness: Plan: -Liekly due to her current covid infection and poor oral intake over the past week -No focal neuro defects -Will give 1 bag of LR for hydration Plan The patient was discussed with Dr. Vigil at the time of the admission History of Present Illness Chief Complaint: SOB Primary Care Provider: Marissa Leon MD Tayla is a 76 year old female with a PMH significant for COPD, current smoker, HTN, hyperlipidemia, OA, and anxiety who presented to the [facility] ED on 03/07/22 for continued SOB. Per chart review, the patient was seen at her PCP for the same symptoms on 03/02 and was started on Prednisone, albuterol, and ipratropium for suspected COPD exacerbation. At that visit her SpO2 was stable on RA but she was also noted to be hypertensive with systolics in the 200's and diastolics in the 70's. For her hypertension she was educated to increase her dose of lisinopril from 20 mg daily to 30 mg and to continue her metoprolol as prescribed. In the ED the patient was found to be afebrile, hypertensive at 213/64, and stable on RA. Labs were remarkable for being covid 19 positive, WBC of 16.32, left shift of 12.72, stable hgb and platelets, stable renal function and electrolytes, initial high sensitivity troponin of 37.9. Chest xray shows no acute findings. Prior to admission the patient was given a duoneb treatment, 60 mg IV methylprednisone, and 10 Iv labetalol. At the time of the exam the patient was resting comfortably in bed in no acute distress with her daughter sitting bedside, history was obtained from both. Her daughter states that since going to her PCP on 03/02 she has had progressive weakness, poor oral intake, and has been fatigued. The patient notes body aches, fever, chills, non-productive cough, SOB, some chest pain which runs across her upper chest and is exacerbated with movement (she does not currently have chest pain), and right leg pain. When asked to elaborate with her right leg pain she notes some sharp/cramping pain that starts just proximal to her right knee and goes down to her right jernigan. She denies any swelling or erythema in her BL LE's. She states that she did increase her dose of lisinopril as directed but has not taking any of her PO meds yet today. She has been using her inhalers as directed. She is still smoking approximately 10-20 cigarettes daily. She denies any current headaches, changes in vision, hearing, taste, and smell, chest pain, back pain, abdominal pain, and new paresthesias. I spoke to she and her daughter regarding code status. She wishes to be a DNR/DNI and her daughter would make decisions for her if she could not make them herself. Please refer to Dr. Vigil's attestation for any changes to the treatment plan Allergies Allergy/AdvReac Type Severity Reaction Status Date / Time No Known Allergies Allergy Verified 03/07/22 15:22 Home Medications Medication Instructions Recorded Confirmed Type aspirin 325 mg tablet 325 mg PO HS 07/25/19 03/07/22 History acetaminophen 500 mg tablet 500 mg PO Q6H PRN Pain 08/04/19 03/07/22 History (Tylenol Extra Strength) meloxicam 15 mg tablet 15 mg PO DAILY PRN pain #30 tabs 09/18/19 03/07/22 Rx tramadol 50 mg tablet 50 - 100 mg PO Q6H PRN pain #24 11/22/19 03/07/22 Rx tabs metoprolol tartrate 50 mg tablet 100 mg PO HS #180 tabs 01/06/22 03/07/22 Rx atorvastatin 20 mg tablet 20 mg PO HS #90 tabs 01/19/22 03/07/22 Rx albuterol sulfate 90 mcg/actuation 2 puff inhalation QID PRN 03/02/22 03/07/22 Rx aerosol inhaler shortness of breath or wheezing #6.7 grams ipratropium bromide 17 2 puff inhalation QID PRN 03/02/22 03/07/22 Rx mcg/actuation HFA aerosol inhaler shortness of breath or wheezing #12.9 grams lisinopril 10 mg tablet 30 mg PO HS 03/02/22 03/07/22 History prednisone 20 mg tablet 40 mg PO DAILY #10 tabs 03/02/22 03/07/22 Rx cholecalciferol (vitamin D3) 1,250 50,000 unit PO WK 03/07/22 03/07/22 History mcg (50,000 unit) capsule Past Med/Surg History Medical History (Updated 03/07/22 @ 16:20 by Gabriel Ovalle PA-C) Fracture of distal end of right radius with malunion History of anxiety Hyperlipidemia Hypertension Osteoarthritis Radius fracture RT Surgical History H/O carotid endarterectomy LEFT H/O wrist surgery RT 40 YRS AGO H/O: hysterectomy History of cataract surgery RT/LEFT History of colonoscopy History of surgery on right wrist Right Distal Radius Open Reduction Internal Fixation History of tooth extraction Family History Brother Family history of diabetes mellitus Social History Smoking Status: Current every day smoker Cigarettes Per Day: 1.5 PPD; Second Hand Exposure: Yes; Hx Alcohol Use: No Hx Substance Use: No Preferred Language: Chinese Communication Ability: Effective Seat Mender Required: No Beliefs That Will Affect Care: None marital status: Current Living Situation: Spouse current occupational status: employed Feels Safe at Home: Yes Assistive Devices: Hearing Aid - Bilateral Review of Systems Review of Systems: Denies current fever, headache, changes in vision, hearing, taste, and smell, chest pain, SOB,abdominal pain, nausea, vomiting, diarrhea, hematemesis, melena, dysuria, hematuria, and recent falls. All systems have been reviewed and are otherwise negative. Physical Exam Physical Exam: Physical Exam: General: In no acute distress, stated age, chronically ill-appearing, non- toxic appearing HEENT: Normocephalic, atraumatic, no scleral icterus, pupils around round, symmetrical, and reactive to light, dry mucus membranes, trachea midline, no thyromegaly Chest/Pulm: No respiratory distress, symmetrical chest expansion, expiratory wheezing noted throughout Cardiac: RRR, systolic murmur noted Abdomen: Negative for ascites and bruising, normoactive bowel sounds, soft, non-tender to palpation throughout Musculoskeletal: Chest pain is reproduciple with palpation of the upper chest, Symmetrical and without signs of acute trauma, upper and lower extremities with full ROM, no atrophy, spasticity, or flaccidity Extremities: Radial, dorsalis pedis, and posterior tibial pulses are intact and symmetrical, no edema noted in the BL LE's Skin: Warm, dry, no rashes , lesions, or scars noted Neuro: Alert and oriented to person, place, month, year, and president, no focal defects, CN II-XII tested and intact, finger to nose test negative, no tremors noted Psych: No acute distress, calm and cooperative during the exam Results & Data Results & Data ([facility]) Vital Signs (Past 12 Hours) Vital Signs Temp Pulse Pulse Resp BP BP Pulse Ox 03/07/22 14:10 75 23 213/64 H 95 03/07/22 14:05 202/72 H 100 03/07/22 14:00 75 23 213/64 H 100 03/07/22 14:00 70 41 H 213/64 H 100 03/07/22 13:55 26 H 205/71 H 100 03/07/22 13:50 72 26 H 200/74 H 100 03/07/22 13:45 180/76 H 100 03/07/22 13:40 74 20 225/70 H 100 03/07/22 13:39 224/80 H 03/07/22 13:35 77 20 97 03/07/22 13:00 77 24 223/78 H 98 03/07/22 13:28 99 03/07/22 12:23 85 26 H 213/73 H 97 03/07/22 12:22 19 98 03/07/22 12:21 99 03/07/22 12:21 99 03/07/22 11:44 36.2 C L 92 H 16 192/86 H 96 O2 Del Method 03/07/22 14:10 Nebulizer 03/07/22 14:05 Nebulizer 03/07/22 14:00 Nebulizer 03/07/22 14:00 Nebulizer 03/07/22 13:55 Nebulizer 03/07/22 13:50 Nebulizer 03/07/22 13:45 Nebulizer 03/07/22 13:40 Nebulizer 03/07/22 13:39 03/07/22 13:35 Room Air 03/07/22 13:00 Room Air 03/07/22 13:28 Room Air 03/07/22 12:23 Room Air 03/07/22 12:22 Room Air 03/07/22 12:21 Room Air 03/07/22 12:21 Room Air 03/07/22 11:44 Room Air Laboratory Results Abnormal lab results 03/07/22 03/07/22 03/07/22 Range/Units 11:55 11:55 12:03 WBC 16.32 H (4.8-10.8) K/ul RDW Std Deviation 47.9 H (36.4-46.3) fL RDW Coeff of Angela 14.7 H (11.5-14.5) % Neut # (Auto) 12.72 H (1.4-6.5) K/uL Lynn # (Auto) 1.18 H (0.24-0.82) K/uL Immature Gran # (Auto) 0.22 H (0.00-0.02) K/uL Sodium 134 L (136-145) mmol/L BUN/Creatinine Ratio 21.2 H (10-20) Glucose 100 H (70-99(Fasting)) mg/dl Alkaline Phosphatase 118 H (34-104) U/L Troponin I High Sens (0-14) pg/ml SARS-CoV-2 (PCR) POSITIVE A* (Negative) 03/07/22 Range/Units 13:21 WBC (4.8-10.8) K/ul RDW Std Deviation (36.4-46.3) fL RDW Coeff of Angela (11.5-14.5) % Neut # (Auto) (1.4-6.5) K/uL Lynn # (Auto) (0.24-0.82) K/uL Immature Gran # (Auto) (0.00-0.02) K/uL Sodium (136-145) mmol/L BUN/Creatinine Ratio (10-20) Glucose (70-99(Fasting)) mg/dl Alkaline Phosphatase (34-104) U/L Troponin I High Sens 37.6 H (0-14) pg/ml SARS-CoV-2 (PCR) (Negative) Diagnostic Findings Chest X-Ray 03/07/22 11:42 SINGLE VIEW CHEST CLINICAL HISTORY: Dyspnea FINDINGS: An AP, portable, upright chest radiograph is compared to study dated 01/03/2021. The examination is degraded by portable technique and patient rotation. The heart is mildly enlarged noting atherosclerotic calcification of the thoracic aorta. The pulmonary vasculature is noncongested. Subpleural reticulation is seen throughout both lungs. Emphysema and chronic interstitial thickening is similar to previous. There is bibasilar scarring/atelectasis. No airspace consolidation or large pleural effusion is identified. No pneumothorax is seen. The skeletal structures are osteopenic. The bony thorax is grossly intact. IMPRESSION: No acute cardiopulmonary abnormality. ACT 112: Negative or not required by law. Electronically signed by: Edward Rossi M.D. 03/07/2022 12:22 PM ECG Additional Comments: Normal sinus rhythm Left ventricular hypertrophy with repolarization abnormality Cannot rule out Inferior infarct , age undetermined Abnormal ECG When compared with ECG of 17-NOV-2019 10:02, [place] interval has decreased Vent. rate has increased BY 36 BPM Minimal criteria for Inferior infarct are now Present Confirmed by Say Miguel ([id number]) on 03/07/2022 2:53:06 PM Code Status & VTE Plan Code Status DNR/DNI VTE Prophylaxis Plan VTE Prophylaxis will be ordered: Yes Supervising Physician Co-Signing Physician Notes Patient was seen and examined independently I discussed the case with Gabriel GOOD I reviewed pertinent past medical social family history and also the plan of care and agree with the plan of care. 68-year-old patient with history of COPD presents with 2-week history of decline with cough and cold symptoms increasing shortness of breath and wheezing. In the emergency department she is found to have COVID-positive test and chest x- ray consistent with her diagnosis of COPD. She is audibly wheezing and given steroids and she will be admitted for treatment of her pulmonary distress. Patient has a mildly elevated troponin and systolic hypertension in the ER Patient is extremely hard of hearing she appeared in no particular distress her O2 sat on room air was 100% her lungs had prolonged expiratory phase and a Few wheezes at the bases but otherwise she is moving good air movement but this was after treatment. Her extremities are without edema Patient is too far out from the onset of her symptoms to consider remdesivir and she is not hypoxic for dexamethasone however she will be on prednisone for COPD exacerbation and DuoNebs. Patient continues to smoke currently will be on nicotine patch. Her biggest concern continues to be her systolic hypertension and be curious to see what her blood pressure reads on different Dinamap machine or with the manual pressure Any exceptions will be noted below PG Care Time/CCT Total # of Minutes Spent Total Time Spent with Patient: Total time spent is greater than 50% in coordination of care (as documented) at patient's floor/unit and/or counseling patient: Coding [place] [address] Initial Inpt Care Lvl 3 Patient Type Established History Comprehensive Exam Comprehensive Medical Decision Making Moderate Complexity Diagnoses Hypertensive urgency I16.0 COVID U07.1 Elevated troponin R77.8 COPD with acute exacerbation J44.1 Right leg pain M79.604 Hyperlipidemia E78.5 Tobacco use Z72.0 Generalized weakness R53.1
[2022-03-07] MEDS ORDERED: METOPROLOL TARTRATE 100 MG TAB PO STA (15:48)
[2022-03-07] MEDS ORDERED: lisinopril 10 MG TAB PO STA (15:48)
[2022-03-07] MEDS ORDERED: ACETAMINOPHEN 325 MG TAB PO PRN (15:49)
[2022-03-07] MEDS ORDERED: guaiFENesin SUGAR FREE 200 MG/10 ML UDC PO PRN (16:13)
[2022-03-07] MEDS ORDERED: diphenhydrAMINE 50 MG/ML VIAL IV PRN (16:17)
[2022-03-07] MEDS: NICOTINE 21 MG/24 HR TDSY TD SCH (16:49)
[2022-03-07] MEDS: LACTATED RINGER'S 1,000 ML IV SCH ×2 (16:58→23:42)
[2022-03-07] MEDS ORDERED: LABETALOL HCL IV 5 MG/ML 20ML IV PRN (17:11)
--- NOTE | 2022-03-07 18:06 | XRay Report ---
RIGHT FEMUR 3 VIEWS CLINICAL HISTORY: Atraumatic right leg pain. FINDINGS: AP, frog-leg, and crosstable lateral views of the right femur are obtained. No prior studie s are available for comparison at the time of dictation. The skeletal structures are osteopenic. Ther e is no radiographic evidence of right femoral fracture. The visualized right hemipelvis appears inta ct. Mild arthritic change and joint space narrowing is seen in the hip. The knee joint is grossly shelby ntained. The overlying soft tissues are within normal limits. There is advanced atherosclerotic calci fication of the right femoral artery. IMPRESSION: No acute bony abnormality is identified. Electronically signed by: Edward Rossi M.D. 03/07/2022 6:05 PM
--- NOTE | 2022-03-07 18:12 | XRay Report ---
RIGHT KNEE 2 VIEWS CLINICAL HISTORY: Atraumatic right knee pain. FINDINGS: AP and crosstable lateral views of the right knee are obtained. No prior studies are availa ble for comparison at the time of dictation. The skeletal structures are osteopenic. No fracture is s een. There is mild tricompartmental degenerative joint space narrowing. No joint effusion is identifi ed. The overlying soft tissues are within normal limits. Atherosclerotic calcification is noted in th e popliteal artery. IMPRESSION: No acute bony abnormality is identified. Electronically signed by: Edward Rossi M.D. 03/07/2022 6:11 PM
[2022-03-07 18:32] LABS: Appearance Urine Clear (Clear); Bacteria Urine Automated Negative (Negative); Bilirubin Urine Negative (Negative); Blood Urine Negative (Negative); Cast Urine Automated 0 /lpf (0-5); Color Urine Yellow; Epithelial Cell Urine Auto >30 /lpf (0-5); Glucose Urine UA Negative (Negative); Ketones Urine Negative (Negative); Leukocyte Esterase Urine Negative (Negative); Nitrite Urine Negative (Negative); Protein Urine Trace (Negative); RBC Urine Automated 0-4 /hpf (0-4); Specific Gravity Urine 1.021 (1.000-1.030); Urobilinogen Urine Negative (Negative); pH Urine 6.5 (4.5-7.5)
--- NOTE | 2022-03-07 18:33 | Ultrasound Report ---
ULTRASOUND RIGHT LOWER EXTREMITY VENOUS CLINICAL HISTORY: Right leg pain and weakness. COMPARISON STUDY: No priors. TECHNIQUE: Real-time, grayscale, and color Doppler sonography of the deep veins of the right lower ex tremity was performed from the inguinal crease to the calf. Compression and augmentation were utilize d. FINDINGS: There is no sonographic evidence of deep venous thrombosis identified in the right lower ex tremity. The common femoral, superficial femoral, and popliteal veins are patent and normally mayte sible. The greater saphenous vein and the profunda femoris vein at the junction with the common femor al vein are clear. The visualized calf veins are patent. Atherosclerotic plaque is seen throughout th e relative short arteries. There is a focal short segment occlusion of the proximal right superficial femoral artery. IMPRESSION: 1. There is no sonographic evidence of deep venous thrombosis identified in the right lower extremity . 2. There is focal occlusion of the proximal right superficial femoral artery. ACT 112: Negative or not required by law. Electronically signed by: Edward Rossi M.D. 03/07/2022 6:30 PM
[2022-03-07 18:44] LABS: Calcium Oxalate Crystals Urine Present (None Prsent)
[2022-03-07] MEDS: ALBUT/IPRATROP 3MG/0.5MG NEB 3 ML VIAL NEB SCH (20:29)
[2022-03-07] MEDS: ATORVASTATIN 20 MG TAB PO SCH (20:38)
[2022-03-07] MEDS: ASPIRIN 325 MG ECTAB PO SCH (20:38)
[2022-03-07] MEDS ORDERED: ENOXAPARIN INJ 40 MG/0.4 ML SYR SQ SCH (21:00)
[2022-03-07] MEDS ORDERED: Heparin IV Adult Wt-Based Standard *NO* Bolus Protocol IV SCH (21:01)
--- NOTE | 2022-03-07 22:44 | Ultrasound Report ---
ULTRASOUND ANKLE BRACHIAL INDICES CLINICAL HISTORY: Focal occlusion of the right femoral artery. COMPARISON STUDY: Right lower extremity venous ultrasound dated 03/07/2022. FINDINGS: Ankle brachial indices were assessed in ultrasound. Right brachial pressure measured 167 an d left brachial pressure measured 205. Pressures in the right posterior tibial artery measured 117 fo r an ASHISH of 0.57, and pressures in the right dorsalis pedis measure 106 for an ASHISH of 0.52. Pressures in the left posterior tibial artery measured 114 for an ASHISH of 0.56, and pressures in the left dorsa lis pedis measure 109 for an ASHISH of 0.53. IMPRESSION: Ankle-brachial indices as above. Electronically signed by: Edward Rossi M.D. 03/07/2022 10:43 PM
[2022-03-07] MEDS: hydrALAZINE HCL 20 MG/ML VIAL IV PRN (23:40)
[2022-03-07] MEDS: HEPARIN SODIUM/DEXTROSE 25,000 UNITS/500 ML BAG IV SCH (23:55)
[2022-03-08] MEDS: ALBUT/IPRATROP 3MG/0.5MG NEB 3 ML VIAL NEB SCH ×3 (00:01→05:44)
[2022-03-08 07:18] LABS: Hematocrit (blood only) 30.7 % (34.1-44.9); Hemoglobin 10.8 g/dl (12.0-16.0); Mean Corpuscular Hemoglobin 30.8 pg (25.0-34.0); Mean Corpuscular Hgb Conc 35.2 g/dL (32.0-36.0); Mean Corpuscular Volume 87.5 fL (80.0-100.0); Mean Platelet Volume 10.4 fL (9.4-12.3); Platelet Count 249 K/uL (130-400); RDW Coefficient of Variation 14.7 % (11.5-14.5); RDW Standard Deviation 46.7 fL (36.4-46.3); Red Blood Count 3.51 M/uL (3.93-5.22); White Blood Count 11.33 K/ul (4.8-10.8)
[2022-03-08 07:49] LABS: BUN Creatinine Ratio 27.9 (10-20); Calcium 8.6 mg/dl (8.5-10.1); Creatinine Clr Calc Pharmacy 44.5 ml/min; Est GFR (Non-African American) 64.7 ml/min; Potassium 4.1 mmol/L (3.5-5.1)
--- NOTE | 2022-03-08 07:50 | Hospitalist Progress Note ---
Date of Service March 08, 2022 Assessment & Plan (1) Hypertensive urgency: Plan: -Patient has a long history of hypertension, was recently seen by her PCP on 03/02 and her dose of lisinopril was increased from 20 mg to 30 mg. The patient did not have any of her antihypertensives today. Was given 10 mg IV labetalol in the ED -Will give her her 30 mg PO lisinopril and 100 mg PO metoprolol tartrate now -Monitor on tele -Hydralazine prn for systolic BP>180 - will add 5mg amlodipine and switch Metoprol tartrate to succinate (2) COVID: Plan: -Noted to be positive today on ED labs -Currently stable on RA -Was not vaccinated -She is out of the window for Remdesivir as her symptoms started over a week ago -If she would become hypoxic would start Dexamethasone -Continue home breathing treatments, incentive spirometry, flutter therapy, prn duoneb, and robitussin for cough -Monitor on tele and pulse oximetry (3) Elevated troponin: Plan: -Initial high sensitivity Troponin elevated at 37, repeat 38, 30-> trending down -Denies chest pain - EKG with LVH, signs of inferior infarct on inderteminate age -Monitor on tele (4) COPD with acute exacerbation: Plan: -Patient has increased cough and subjective SOB, currently stable on RA -Will continue to treat for COPD exacerbation with her active covid infection -Was already given 60 mg IV methyprednisone in the ED, will continue with 40 mg daily -Chest xray was clear, will hold antibiotics for now (5) Right leg pain: Plan: -Patient has been having right lower extremity leg pain over the past week -No acute trauma, swelling, or erythema on exam -Right LE venous Doppler with focal occlusion of right superficial femoral artery -> started on heparin drip. -Xrays knee/femur negative - ASHISH in right and left LE 0.5-0.6 -> indicative fo moderate arterial disease - Consult to vascular surgery; appreciate recs (6) Hyperlipidemia: Plan: -Continue statin (7) Tobacco use: Plan: -Nicotine patch ordered (8) Generalized weakness: Plan: -Liekly due to her current covid infection and poor oral intake over the past week -No focal neuro defects Admission and Anticipated Discharge Date Admission Date: March 07, 2022 Supervising Physician Co-Signing Physician Notes I also saw the patient with the resident physician and confirmed ny portions of the history and physical examination. I agree with impression and plan as noted in the resident documentation. Upon our midmorning exam, the patient was lying comfortably in bed with her daughter at bedside. Due to the patient's difficulty in hearing, much of the history is obtained from the daughter. The patient herself seems to feel better today when compared to yesterday; the daughter feels that she looks much better as well. Her any complaint at present is right upper thigh pain, although this seems to be mild. While history is difficult, he does sound as if she is getting some claudication type pain in the lower extremities, describing a cramping sensation with activity, improving with rest. Exam 150/68, 95, 18, 36.9, 96% on room air She appears comfortable. No distress appreciated. Heart is regular, slightly tachycardic Respirations are nonlabored. Coarse breath sounds throughout, with expiratory wheezing Abdomen soft and nontender Lower extremities without edema; no calf tenderness with palpation. LE pulses are diminished B/L. Data CBC shows a white blood cell count of 11.33 and a hemoglobin of 10.8; platelets 249. Sodium 130, potassium 4.1, BUN 24, creatinine 0.86 High-sensitivity troponin peaked at 38.6, subsequent 30.3 PCR for COVID is positive; influenza negative; RSV negative Imaging Ultrasound the right lower extremity shows no evidence of DVT, there is focal occlusion of the proximal right superficial femoral artery. ASHISH right posterior tibial artery 0.57, right dorsalis pedis 0.52; left posterior tibial artery 0.56, left dorsalis pedis 0.53 Hypertensive urgency In reviewing her outpatient notes, it looks as if she has been significantly hypertensive for some time Lisinopril was recently increased from 20 mg to 30 mg Continue lisinopril Continue metoprolol but will change to succinate Add amlodipine Hydralazine as needed Peripheral vascular disease Vascular claudication Heparin drip Vascular consult was placed from the emergency department COVID-19 COPD/ongoing tobacco abuse From respiratory standpoint, doing surprisingly well Outpatient records to note suspected history of COPD (long-term and current s moker, currently half pack per day) Continue steroids Continue inhalers Additional per resident documentation Subjective 76 year old female with a past medical history of COPD (current smoker), HTN, HLD, OA, and anxiety that was admitted for HTN urgency. She presented to the ED for dyspnea. SPO2 stable on RA, found have BP of 200/80. Pt is very hard of hearing. Daughter was in room this afternoon. She continues to feel tired, has pain in right leg. Review of Systems Review of Systems: As per HPI Physical Exam Physical Exam: Constitutional: well-appearing, no acute distress HEENT: NCAT, no conjunctival injection CV: regular rhythm, no murmur appreciated, extremities well-perfused, no LE edema Resp: expiratory wheezing B/L GI: soft, nondistended, nontender, BS normoactive MSK: no gross deformities appreciated, pain in right leg Skin: warm, dry, no rash appreciated Neuro: alert, oriented, no focal neurologic deficit appreciated Results & Data Results & Data ([facility]) Vital Signs (Past 12 Hours) Vital Signs Temp Pulse Pulse Resp BP BP Pulse Ox 03/08/22 05:45 67 16 97 03/08/22 03:00 36.3 C L 66 16 178/50 H 100 03/08/22 02:28 70 16 98 03/08/22 00:03 71 16 98 03/07/22 23:50 03/07/22 23:35 201/72 H 03/07/22 23:02 36.9 C 66 16 205/71 H 100 03/07/22 22:59 36.9 C 66 16 205/71 H 100 03/07/22 21:30 66 28 H 99 03/07/22 21:00 68 32 H 99 03/07/22 20:30 67 22 100 03/07/22 20:30 167/65 H 03/07/22 20:01 66 21 98 03/07/22 20:00 65 27 H 98 03/07/22 20:00 67 21 167/65 H 99 03/07/22 20:30 71 18 98 O2 Del Method 03/08/22 05:45 Room Air 03/08/22 03:00 Room Air 03/08/22 02:28 Room Air 03/08/22 00:03 Room Air 03/07/22 23:50 Room Air 03/07/22 23:35 03/07/22 23:02 Room Air 03/07/22 22:59 Room Air 03/07/22 21:30 03/07/22 21:00 03/07/22 20:30 03/07/22 20:30 03/07/22 20:01 03/07/22 20:00 03/07/22 20:00 Room Air 03/07/22 20:30 Room Air Resident Activity Tracking Resident Involvement: Resident Care Provided Care Provided: Adult Hospital Medicine
[2022-03-08] MEDS: hydrALAZINE HCL 20 MG/ML VIAL IV PRN (08:00)
[2022-03-08] MEDS: predniSONE 20 MG TAB PO SCH (08:02)
[2022-03-08 08:13] LABS: Partial Thromboplastin Ratio 3.3
[2022-03-08 08:18] LABS: Partial Thromboplastin Time 91.2 Seconds (21.0-31.0)
[2022-03-08] MEDS: NICOTINE 21 MG/24 HR TDSY TD SCH (09:25)
[2022-03-08] MEDS ORDERED: ALBUT/IPRATROP 3MG/0.5MG NEB 3 ML VIAL NEB PRN (10:08)
[2022-03-08] MEDS ORDERED: amLODIPine BESYLATE 5 MG TAB PO ONE (10:43)
[2022-03-08 16:49] LABS: Partial Thromboplastin Ratio 2.4
[2022-03-08 17:06] LABS: Partial Thromboplastin Time 65.5 Seconds (21.0-31.0)
[2022-03-08] MEDS ORDERED: METOPROLOL TARTRATE 100 MG TAB PO SCH (21:00)
[2022-03-08] MEDS: lisinopril 10 MG TAB PO SCH (21:11)
[2022-03-08] MEDS: METOPROLOL SUCC 50MG EXT REL TAB PO SCH (21:11)
[2022-03-08] MEDS: ASPIRIN 325 MG ECTAB PO SCH (21:11)
[2022-03-08] MEDS: ATORVASTATIN 20 MG TAB PO SCH (21:11)
[2022-03-09] MEDS: hydrALAZINE HCL 20 MG/ML VIAL IV PRN (03:22)
[2022-03-09] MEDS: HEPARIN SODIUM/DEXTROSE 25,000 UNITS/500 ML BAG IV SCH (03:31)
--- NOTE | 2022-03-09 06:55 | Hospitalist Progress Note ---
Date of Service March 09, 2022 Assessment & Plan (1) COVID: Plan: -Noted to be positive on ED labs -Currently stable on RA -Was not vaccinated -She is out of the window for Remdesivir as her symptoms started over a week ago -Continue home breathing treatments, incentive spirometry, flutter therapy, prn duoneb, and robitussin for cough -Monitor on tele and pulse oximetry - Has been on prednisone for the past 7 days at 40mg; will plan to taper 30mg x3 days, 20mg x3 days, 10mg x3 days (2) Hypertensive urgency: Plan: -Patient has a long history of hypertension, was recently seen by her PCP on 03/02 and her dose of lisinopril was increased from 20 mg to 30 mg. -Continue lisinopril 30mg, switch Metoprol tartrate to succinate - 5mg amlodipine added -Monitor on tele -Hydralazine prn for systolic BP>180 - Currently asymptomatic with no signs of end organ damage; will hold off of further adjust of antihypertensives for now as hypertension is likely reactive to current infection (3) Elevated troponin: Plan: -Initial high sensitivity Troponin elevated at 37, repeat 38, 30-> trending down -Denies chest pain - EKG with LVH, signs of inferior infarct on inderteminate age -Monitor on tele (4) COPD with acute exacerbation: Plan: -Patient has increased cough and subjective SOB, currently stable on RA -Will continue to treat for COPD exacerbation with her active covid infection -Prednisone as per above -Chest xray was clear, will hold antibiotics for now - Has not been formally diagnosed, will need PFTs an OP - Will check Chest CT with smoking history and recent unintenional weight loss (5) Right leg pain: Plan: -Patient has been having right lower extremity leg pain over the past week -No acute trauma, swelling, or erythema on exam -Right LE venous Doppler with focal occlusion of right superficial femoral artery -Xrays knee/femur negative - ASHISH in right and left LE 0.5-0.6 -> indicative fo moderate arterial disease - Vascular surgery will see as an OP, no acute invention. No d/c heparin drip (6) Hyperlipidemia: Plan: -Continue statin; increase to 80mg and recheck lipid panel in morning (7) Tobacco use: Plan: -Nicotine patch ordered (8) Generalized weakness: Plan: -Liekly due to her current covid infection and poor oral intake over the past week -No focal neuro defects Admission and Anticipated Discharge Date Admission Date: March 07, 2022 Supervising Physician Co-Signing Physician Notes I personally examined the patient and verified all ny points of history and exam, discussed case, and agree with decision making with Dr Warner leg pain. breathing seems OK vitals noted nad heent nc at mmm breathing unlabored no accessory muscles good effort skin no rashes no pallor or icterus neuro no focal defcits tender mid thigh R leg high tone/tender COVID-19 precipitating COPD exacerbationcontinue steroids, supportive care. Doing surprisingly well. Uncontrolled hypertensionother than some degree of demand ischemia, no significant endorgan damage. Peripheral vascular diseaseno clear indication for acute intervention at this time, unclear if the pain in her right thigh relates to this, or quadriceps somatic dysfunction, or both - repeat doppler arterial. Additional per resident documentation Subjective 76 year old female with a past medical history of COPD (current smoker), HTN, HLD, OA, and anxiety that was admitted for HTN urgency. She presented to the ED for dyspnea. SPO2 stable on RA, found have BP of 200/80. Pt is very heard of hearing. States she is doing well this morning. Still having some fatigue. Leg pain has improved. Spoke to daughters at bedside. Review of Systems Review of Systems: As per HPI Physical Exam Physical Exam: Constitutional: well-appearing, no acute distress HEENT: NCAT, no conjunctival injection CV: regular rhythm, no murmur appreciated, extremities well-perfused, no LE edema Resp: expiratory wheezing B/L GI: soft, nondistended, nontender, BS normoactive MSK: no gross deformities appreciated, pain in right leg Skin: warm, dry, no rash appreciated Neuro: alert, oriented, no focal neurologic deficit appreciated Results & Data Results & Data ([facility]) Vital Signs (Past 12 Hours) Vital Signs Temp Pulse Pulse Resp BP BP Pulse Ox 03/09/22 03:18 36.3 C L 70 18 189/71 H 99 03/08/22 23:23 36.4 C L 68 18 197/67 H 95 03/08/22 23:09 67 03/08/22 20:00 03/08/22 19:52 36.6 C 60 20 197/74 H 96 O2 Del Method 03/09/22 03:18 Room Air 03/08/22 23:23 Room Air 03/08/22 23:09 03/08/22 20:00 Room Air 03/08/22 19:52 Room Air Resident Activity Tracking Resident Involvement: Resident Care Provided Care Provided: Adult Hospital Medicine
[2022-03-09] MEDS: amLODIPine BESYLATE 5 MG TAB PO SCH (07:51)
[2022-03-09] MEDS: predniSONE 20 MG TAB PO SCH (07:51)
[2022-03-09] MEDS: NICOTINE 21 MG/24 HR TDSY TD SCH (07:51)
[2022-03-09 08:00] LABS: Hematocrit (blood only) 33.1 % (34.1-44.9); Hemoglobin 11.3 g/dl (12.0-16.0); Mean Corpuscular Hemoglobin 30.1 pg (25.0-34.0); Mean Corpuscular Hgb Conc 34.1 g/dL (32.0-36.0); Platelet Count 261 K/uL (130-400); RDW Coefficient of Variation 15.1 % (11.5-14.5); RDW Standard Deviation 48.1 fL (36.4-46.3); Red Blood Count 3.76 M/uL (3.93-5.22); White Blood Count 12.61 K/ul (4.8-10.8)
[2022-03-09 08:26] LABS: BUN Creatinine Ratio 27.3 (10-20); Calcium 8.6 mg/dl (8.5-10.1); Est GFR (African American) 63.3 ml/min; Est GFR (Non-African American) 54.6 ml/min
[2022-03-09 08:32] LABS: Partial Thromboplastin Ratio 4.1
[2022-03-09 08:39] LABS: Partial Thromboplastin Time 114.1 Seconds (21.0-31.0)
[2022-03-09] MEDS: CHOLECALCIFEROL 5,000 UNITS 125 MCG TAB PO SCH (09:49)
--- NOTE | 2022-03-09 16:33 | XCELERA ---
[id number] [id number]
--- NOTE | 2022-03-09 19:52 | Billing Data ---
Date of Service March 09, 2022 Coding Level of Care Code 41085 Subseq Hosp Care Lvl 3
[2022-03-09] MEDS: HEPARIN SOD 5,000 UNIT/0.5 ML VIAL SQ SCH (20:47)
[2022-03-09] MEDS: ASPIRIN 81 MG ECTAB PO SCH (20:47)
[2022-03-09] MEDS ORDERED: ATORVASTATIN 40 MG TAB PO SCH (21:00)
[2022-03-09] MEDS: lisinopril 10 MG TAB PO SCH (21:31)
[2022-03-09] MEDS: METOPROLOL SUCC 50MG EXT REL TAB PO SCH (22:25)
[2022-03-10 07:36] LABS: Hematocrit (blood only) 33.8 % (34.1-44.9); Hemoglobin 11.6 g/dl (12.0-16.0); Mean Corpuscular Hemoglobin 29.8 pg (25.0-34.0); Mean Corpuscular Hgb Conc 34.3 g/dL (32.0-36.0); Mean Corpuscular Volume 86.9 fL (80.0-100.0); Mean Platelet Volume 10.1 fL (9.4-12.3); Platelet Count 256 K/uL (130-400); RDW Coefficient of Variation 15.3 % (11.5-14.5); RDW Standard Deviation 48.3 fL (36.4-46.3); Red Blood Count 3.89 M/uL (3.93-5.22); White Blood Count 10.26 K/ul (4.8-10.8)
[2022-03-10] MEDS: HEPARIN SOD 5,000 UNIT/0.5 ML VIAL SQ SCH ×2 (07:54→21:59)
[2022-03-10] MEDS: CHOLECALCIFEROL 5,000 UNITS 125 MCG TAB PO SCH (07:54)
[2022-03-10] MEDS: amLODIPine BESYLATE 5 MG TAB PO SCH (07:55)
[2022-03-10] MEDS: NICOTINE 21 MG/24 HR TDSY TD SCH (07:55)
[2022-03-10] MEDS: predniSONE 20 MG TAB PO SCH (07:55)
--- NOTE | 2022-03-10 08:14 | Hospitalist Progress Note ---
Date of Service March 10, 2022 Assessment & Plan (1) COVID: Plan: Dyspnea /COVID -Noted to be positive on ED labs -Currently stable on RA -Was not vaccinated -She is out of the window for Remdesivir as her symptoms started over a week ago -Continue home breathing treatments, incentive spirometry, flutter therapy, prn duoneb, and robitussin for cough -Monitor on tele and pulse oximetry - Has been on prednisone for the past 7 days at 40mg; will plan to taper 30mg x3 days, 20mg x3 days, 10mg x3 days HTN Urgency -Patient has a long history of hypertension, was recently seen by her PCP on 03/02 and her dose of lisinopril was increased from 20 mg to 30 mg. -Continue lisinopril 30mg, switch Metoprol tartrate to succinate - 5mg amlodipine added -Monitor on tele -Hydralazine prn for systolic BP>180 - Currently asymptomatic with no signs of end organ damage; will hold off of further adjust of antihypertensives for now as hypertension is likely reactive to current infection Elevated Troponin -Initial high sensitivity Troponin elevated at 37, repeat 38, 30-> trending down -Denies chest pain - EKG with LVH, signs of inferior infarct on indeterminate age -Monitor on tele COPD -Patient has increased cough and subjective SOB, currently stable on RA -Will continue to treat for COPD exacerbation with her active covid infection -Prednisone as per above -Chest xray was clear, will hold antibiotics for now - Has not been formally diagnosed, will need PFTs an OP - Chest CT significant for interstitial lung disease emphysema, mild dilation of central pulmonary arteries - Significant smoking history; nicotine patch ordered Pulmonary Nodule - Multiple small upper lobe pulmonary nodules, likely benign - will need repeat CT in 6 months focal occlusion of right superficial femoral artery -Patient has been having right lower extremity leg pain over the past week -No acute trauma, swelling, or erythema on exam -Right LE venous Doppler with focal occlusion of right superficial femoral artery -Xrays knee/femur negative - ASHISH in right and left LE 0.5-0.6 -> indicative fo moderate arterial disease - Vascular surgery will see as an OP, no acute invention. No d/c heparin drip HLD - peripheral vascular disease, signs of atherosclerotic calcifications of kaye ry arteries and thoracic aorta -Continue statin; increase to 40mg Total Qqblncrztod=003, LDL= 48, HDL- 64 (2) Hypertensive urgency: (3) Elevated troponin: (4) COPD with acute exacerbation: (5) Right leg pain: (6) Hyperlipidemia: (7) Tobacco use: (8) Generalized weakness: Admission and Anticipated Discharge Date Admission Date: March 07, 2022 Supervising Physician Co-Signing Physician Notes I personally examined the patient and verified all ny points of history and exam, discussed case, and agree with decision making with Dr Timmy melendez nursing - doing well today and walked with minimal pain. pt corroborates this. breathing OK as well. awaiting rehab. vitals noted nad heent nc at mmm breathing unlabored no accessory muscles good effort skin no rashes no pallor or icterus neuro no focal deficits. COVID-19 precipitating COPD exacerbationcontinue steroids, supportive care. Doing surprisingly well. Uncontrolled hypertensionother than some degree of demand ischemia, no significant end-organ damage. Peripheral vascular diseaseno clear indication for acute intervention at this time, arterial doppler heavily implying chronicity, pain resolved Additional per resident documentation Subjective 76 year old female with a past medical history of COPD (current smoker), HTN, HLD, OA, and anxiety that was admitted for HTN urgency. She presented to the ED for dyspnea. SPO2 stable on RA, found have BP of 200/80. States she is feeling a little bit better today. Fatigue is minimally improved. Denies chest pain, dyspnea, abdominal pain, headache, blurred vision. Spoke with daughter, Paulette, and she is aware of plan. Review of Systems Review of Systems: As per HPI Physical Exam Physical Exam: Constitutional: well-appearing, no acute distress HEENT: NCAT, no conjunctival injection CV: regular rhythm, no murmur appreciated, extremities well-perfused, no LE edema Resp: expiratory wheezing B/L GI: soft, nondistended, nontender, BS normoactive MSK: no gross deformities appreciated, pain in right leg Skin: warm, dry, no rash appreciated Neuro: alert, oriented, no focal neurologic deficit appreciated Results & Data Results & Data ([facility]) Vital Signs (Past 12 Hours) Vital Signs Temp Pulse Pulse Resp BP BP Pulse Ox 03/10/22 07:48 36.4 C L 60 18 182/75 H 97 03/10/22 04:00 36.7 C 60 16 179/71 H 99 03/10/22 03:42 63 03/09/22 23:12 36.5 C 55 L 16 173/73 H 100 03/09/22 21:00 O2 Del Method 03/10/22 07:48 Room Air 03/10/22 04:00 Room Air 03/10/22 03:42 03/09/22 23:12 Room Air 03/09/22 21:00 Room Air Resident Activity Tracking Resident Involvement: Resident Care Provided Care Provided: Adult Hospital Medicine
[2022-03-10 08:19] LABS: BUN Creatinine Ratio 30.2 (10-20); Calcium 8.6 mg/dl (8.5-10.1); Chol HDL Ratio 2.1 (0-5); Creatinine Clr Calc Pharmacy 37.8 ml/min; Est GFR (African American) 58.2 ml/min; Est GFR (Non-African American) 50.3 ml/min; Potassium 4.1 mmol/L (3.5-5.1)
--- NOTE | 2022-03-10 09:27 | CT Scan Report ---
CT OF THE CHEST WITHOUT IV CONTRAST CLINICAL HISTORY: Unintentional Weight Loss, Smoking History. COMPARISON STUDY: Chest radiographs March 07, 2022 and January 03, 2021. CT DOSE: 177.50 mGycm TECHNIQUE: Axial images of the chest were obtained without IV contrast. Images were reviewed in the axial, sagittal, and coronal planes. IV contrast was not administered for this examination. Automat ed exposure control was utilized for the study. A dose lowering technique was utilized adhering to t he principles of ALARA. FINDINGS: No enlarged axillary, mediastinal or hilar lymph nodes are present. The size of the heart is normal. There is extensive coronary artery calcification. Mitral annular calcification is noted. T here is extensive atherosclerotic plaque of the thoracic aorta. Mild aneurysmal dilatation of the mid descending thoracic aorta, measuring 3.9 cm is noted. There is mild dilatation of the central pulmon wili arteries. Lungs are suboptimally assessed due to respiratory motion. No consolidation is identifi ed to suggest pneumonia. Bilateral lower lobe subpleural cystic change/honeycombing is noted. There m ay be underlying emphysema as well. No suspicious pulmonary nodules are noted. There are numerous tin y bilateral upper lobe pulmonary nodules which measure up to 4 mm. These are probably benign. Central airways are grossly patent. No fracture or suspicious lesion within the visualized bony thorax is no dirk. Marked right renal atrophy is partially imaged. No convincing evidence for malignancy within the chest. IMPRESSION: 1. No convincing evidence for malignancy within the chest. 2. Lungs suboptimally assessed due to respiratory motion. Evidence for interstitial lung disease and suspected superimposed emphysema. 3. Mild aneurysmal dilatation of the mid descending thoracic aorta, measuring 3.9 cm. Extensive ather osclerotic calcification within the coronary arteries and thoracic aorta. 4. Mild dilatation of the central pulmonary arteries. This raises the possibility of pulmonary arteri al hypertension. 5. Multiple tiny bilateral upper lobe pulmonary nodules. These are likely benign. A follow-up chest C T in 6 months to ensure stability is recommended. ACT 112: Negative or not required by law. Electronically signed by: Umer Curran M.D. 03/10/2022 9:25 AM
--- NOTE | 2022-03-10 16:07 | Ultrasound Report ---
BILATERAL LOWER EXTREMITY ARTERIAL DOPPLER ULTRASOUND CLINICAL HISTORY: Peripheral arterial disease. COMPARISON STUDY: Bilateral lower extremity arterial Doppler ultrasound October 26, 2013 and ankle to b rachial indices March 07, 2022. TECHNIQUE: Color and duplex Doppler sonography of the arterial systems of both lower extremities was performed. FINDINGS: Extensive atherosclerotic plaque is noted within both lower extremities. There is monophasi c flow within the bilateral common femoral arteries which raises the possibility of inflow disease. T he proximal to mid right superficial femoral artery is occluded. There is distal reconstitution with monophasic flow within the distal right superficial femoral artery. There is monophasic flow within t he right popliteal artery. No flow is identified within the mid to distal right anterior tibial and p osterior tibial arteries. There is monophasic flow within the right peroneal and dorsalis pedis. The mid to distal left superficial femoral artery is occluded. Distal reconstitution is noted with mo nophasic flow within the left popliteal, anterior tibial, peroneal and dorsalis pedis vessels. No victor hugo w is identified within the left posterior tibial artery suggesting vessel occlusion. IMPRESSION: 1. Extensive atherosclerotic plaque within the bilateral lower extremities. Monophasic flow within th e common femoral arteries which raises the possibility of inflow disease. 2. Occluded bilateral superficial femoral arteries with distal reconstitution, as above. Dampened, mo nophasic flow within the bilateral calf vessels. 3. Suspected occlusion of the mid to distal right posterior tibial and anterior tibial arteries and t he left posterior tibial artery. ACT 112: Negative or not required by law. Electronically signed by: Umer Curran M.D. 03/10/2022 4:05 PM
--- NOTE | 2022-03-10 19:17 | Billing Data ---
Date of Service March 10, 2022 Coding Level of Care Code 38497 Subseq Hosp Care Lvl 3
[2022-03-10] MEDS ORDERED: ATORVASTATIN 40 MG TAB PO SCH (21:00)
[2022-03-10] MEDS: METOPROLOL SUCC 50MG EXT REL TAB PO SCH (21:59)
[2022-03-10] MEDS: ASPIRIN 81 MG ECTAB PO SCH (22:00)
[2022-03-10] MEDS: lisinopril 10 MG TAB PO SCH (22:00)
--- NOTE | 2022-03-11 07:25 | Hospitalist Progress Note ---
Date of Service March 11, 2022 Assessment & Plan (1) COVID: Plan: Dyspnea /COVID -Noted to be positive on ED labs -Currently stable on RA -Was not vaccinated -She is out of the window for Remdesivir as her symptoms started over a week ago -Continue home breathing treatments, incentive spirometry, flutter therapy, prn duoneb, and robitussin for cough -Monitor on tele and pulse oximetry - Has been on prednisone for the past 7 days at 40mg; will plan to taper 30mg x3 days, 20mg x3 days, 10mg x3 days (Day 1 of taper) HTN Urgency -Patient has a long history of hypertension, was recently seen by her PCP on 03/02 and her dose of lisinopril was increased from 20 mg to 30 mg. -Continue lisinopril 30mg, switch Metoprol tartrate to succinate - 5mg amlodipine added -Monitor on tele -Hydralazine prn for systolic BP>180 - Currently asymptomatic with no signs of end organ damage; will hold off of further adjust of antihypertensives for now as hypertension is likely reactive to current infection Elevated Troponin -Initial high sensitivity Troponin elevated at 37, repeat 38, 30-> trending down -Denies chest pain - EKG with LVH, signs of inferior infarct on indeterminate age -Monitor on tele COPD -Patient has increased cough and subjective SOB, currently stable on RA -Will continue to treat for COPD exacerbation with her active covid infection -Prednisone as per above -Chest xray was clear, will hold antibiotics for now - Has not been formally diagnosed, will need PFTs an OP - Chest CT significant for interstitial lung disease emphysema, mild dilation of central pulmonary arteries - Significant smoking history; nicotine patch ordered Pulmonary Nodule - Multiple small upper lobe pulmonary nodules, likely benign - will need repeat CT in 6 months focal occlusion of right superficial femoral artery -Patient has been having right lower extremity leg pain over the past week -No acute trauma, swelling, or erythema on exam -Right LE venous Doppler with focal occlusion of right superficial femoral artery -Xrays knee/femur negative - ASHISH in right and left LE 0.5-0.6 -> indicative fo moderate arterial disease - Vascular surgery will see as an OP, no acute invention. No d/c heparin drip HLD - peripheral vascular disease, signs of atherosclerotic calcifications of coronary arteries and thoracic aorta -Continue statin; increase to 40mg Total [id number]=598, LDL= 48, HDL- 64 (2) Hypertensive urgency: (3) Elevated troponin: (4) COPD with acute exacerbation: (5) Right leg pain: (6) Hyperlipidemia: (7) Tobacco use: (8) Generalized weakness: Admission and Anticipated Discharge Date Admission Date: March 07, 2022 Subjective 76 year old female with a past medical history of COPD (current smoker), HTN, HLD, OA, and anxiety. Review of Systems Review of Systems: As per HPI Physical Exam Physical Exam: Constitutional: well-appearing, no acute distress HEENT: NCAT, no conjunctival injection CV: regular rhythm, no murmur appreciated, extremities well-perfused, no LE edema Resp: expiratory wheezing B/L GI: soft, nondistended, nontender, BS normoactive MSK: no gross deformities appreciated, pain in right leg Skin: warm, dry, no rash appreciated Neuro: alert, oriented, no focal neurologic deficit appreciated Results & Data Results & Data ([facility]) Vital Signs (Past 12 Hours) Vital Signs Temp Pulse Pulse Resp BP Pulse Ox O2 Del Method 03/10/22 22:05 61 03/11/22 02:20 36.4 C L 57 L 18 164/85 H 97 Room Air 03/10/22 20:00 Room Air 03/10/22 22:29 36.4 C L 60 18 159/77 H 99 Room Air 03/10/22 21:55 62 03/10/22 19:37 36.7 C 59 L 18 167/75 H 98 Room Air Resident Activity Tracking Resident Involvement: Resident Care Provided Care Provided: Adult Hospital Medicine
[2022-03-11 07:54] LABS: BUN Creatinine Ratio 29.5 (10-20); Calcium 8.6 mg/dl (8.5-10.1); Creatinine Clr Calc Pharmacy 39.4 ml/min; Est GFR (African American) 66.5 ml/min; Est GFR (Non-African American) 57.4 ml/min; Potassium 4.1 mmol/L (3.5-5.1)
[2022-03-11] MEDS ORDERED: ATORVASTATIN 40 MG TAB PO SCH (09:00)
[2022-03-11] MEDS ORDERED: predniSONE 10 MG TABLET PO SCH (09:00)
[2022-03-11] MEDS: NICOTINE 21 MG/24 HR TDSY TD SCH (09:16)
[2022-03-11] MEDS: HEPARIN SOD 5,000 UNIT/0.5 ML VIAL SQ SCH (09:17)
[2022-03-11] MEDS: CHOLECALCIFEROL 5,000 UNITS 125 MCG TAB PO SCH (09:17)
[2022-03-11] MEDS: amLODIPine BESYLATE 5 MG TAB PO SCH (09:17)
--- NOTE | 2022-03-11 16:45 | Discharge Summary ---
Date of Service March 11, 2022 Admission HPI Per Admitting Provider Tayla is a 76 year old female with a PMH significant for COPD, current smoker, HTN, hyperlipidemia, OA, and anxiety who presented to the [facility] ED on 03/07/22 for continued SOB. Per chart review, the patient was seen at her PCP for the same symptoms on 03/02 and was started on Prednisone, albuterol, and ipratropium for suspected COPD exacerbation. At that visit her SpO2 was stable on RA but she was also noted to be hypertensive with systolics in the 200's and diastolics in the 70's. For her hypertension she was educated to increase her dose of lisinopril from 20 mg daily to 30 mg and to continue her metoprolol as prescribed. In the ED the patient was found to be afebrile, hypertensive at 213/64, and stable on RA. Labs were remarkable for being covid 19 positive, WBC of 16.32, left shift of 12.72, stable hgb and platelets, stable renal function and electrolytes, initial high sensitivity troponin of 37.9. Chest xray shows no acute findings. Prior to admission the patient was given a duoneb treatment, 60 mg IV methylprednisone, and 10 Iv labetalol. At the time of the exam the patient was resting comfortably in bed in no acute distress with her daughter sitting bedside, history was obtained from both. Her daughter states that since going to her PCP on 03/02 she has had progressive weakness, poor oral intake, and has been fatigued. The patient notes body aches, fever, chills, non-productive cough, SOB, some chest pain which runs across her upper chest and is exacerbated with movement (she does not currently have chest pain), and right leg pain. When asked to elaborate with her right leg pain she notes some sharp/cramping pain that starts just proximal to her right knee and goes down to her right jernigan. She denies any swelling or erythema in her BL LE's. She states that she did increase her dose of lisinopril as directed but has not taking any of her PO meds yet today. She has been using her inhalers as directed. She is still smoking approximately 10-20 cigarettes daily. She denies any current headaches, changes in vision, hearing, taste, and smell, chest pain, back pain, abdominal pain, and new paresthesias. I spoke to she and her daughter regarding code status. She wishes to be a DNR/DNI and her daughter would make decisions for her if she could not make them herself. Please refer to Dr. Vigil's attestation for any changes to the treatment plan Principal Diagnosis COVID Discharge Exam Constitutional: well-appearing, no acute distress HEENT: NCAT, no conjunctival injection CV: regular rhythm, no murmur appreciated, extremities well-perfused, no LE edema Resp: expiratory wheezing B/L GI: soft, nondistended, nontender, BS normoactive MSK: no gross deformities appreciated, pain in right leg Skin: warm, dry, no rash appreciated Neuro: alert, oriented, no focal neurologic deficit appreciated Discharge Data Allergies Allergy/AdvReac Type Severity Reaction Status Date / Time No Known Allergies Allergy Verified 03/07/22 15:22 Consultations 03/07/22 15:06 ED Decision to Admit Stat Ordered Studies 03/07/22 13:04 US venous doppler LE RT Stat 03/07/22 20:12 US ankle brachial index [US ankle/brachial index ltd] Routine 03/09/22 16:30 CT chest without contrast [CT chest diagnostic wo con] Routine 03/10/22 US arterial duplex LE BI Routine Laboratory Results WBC 10.26 K/ul (4.8-10.8) 03/10/22 06:59 RBC 3.89 M/uL (3.93-5.22) L 03/10/22 06:59 Hgb 11.6 g/dl (12.0-16.0) L 03/10/22 06:59 Hct 33.8 % (34.1-44.9) L 03/10/22 06:59 MCV 86.9 fL (80.0-100.0) 03/10/22 06:59 MCH 29.8 pg (25.0-34.0) 03/10/22 06:59 MCHC 34.3 g/dL (32.0-36.0) 03/10/22 06:59 RDW Std Deviation 48.3 fL (36.4-46.3) H 03/10/22 06:59 RDW Coeff of Angela 15.3 % (11.5-14.5) H 03/10/22 06:59 Plt Count 256 K/uL (130-400) 03/10/22 06:59 MPV 10.1 fL (9.4-12.3) 03/10/22 06:59 Immature Gran % (Auto) 1.3 % 03/07/22 11:55 Neut % (Auto) 78.0 % 03/07/22 11:55 Lymph % (Auto) 13.2 % 03/07/22 11:55 Putnam % (Auto) 7.2 % 03/07/22 11:55 Eos % (Auto) 0.1 % 03/07/22 11:55 Baso % (Auto) 0.2 % 03/07/22 11:55 Neut # (Auto) 12.72 K/uL (1.4-6.5) H 03/07/22 11:55 Lymph # (Auto) 2.16 K/uL (1.2-3.4) 03/07/22 11:55 Putnam # (Auto) 1.18 K/uL (0.24-0.82) H 03/07/22 11:55 Eos # (Auto) 0.01 K/uL (0-0.50) 03/07/22 11:55 Baso # (Auto) 0.03 K/uL (0-0.2) 03/07/22 11:55 Immature Gran # (Auto) 0.22 K/uL (0.00-0.02) H 03/07/22 11:55 PT 10.5 Seconds (9.0-12.0) 03/07/22 11:55 INR 1.0 (0.9-1.1) 03/07/22 11:55 APTT 114.1 Seconds (21.0-31.0) H* 03/09/22 07:05 PTT Ratio 4.1 03/09/22 07:05 Sodium 129 mmol/L (136-145) L 03/11/22 07:15 Potassium 4.1 mmol/L (3.5-5.1) 03/11/22 07:15 Chloride 99 mmol/L (98-107) 03/11/22 07:15 Carbon Dioxide 25 mmol/L (21-32) 03/11/22 07:15 Anion Gap 5 (3-11) 03/11/22 07:15 BUN 28 mg/dl (6-23) H 03/11/22 07:15 Creatinine 0.95 mg/dl (0.6-1.2) 03/11/22 07:15 Est Cr Clr Drug Dosing 39.4 ml/min 03/11/22 07:15 Est GFR ( Amer) 66.5 ml/min 03/11/22 07:15 Est GFR (Non-Af Amer) 57.4 ml/min 03/11/22 07:15 BUN/Creatinine Ratio 29.5 (10-20) H 03/11/22 07:15 Glucose 84 mg/dl (70-99(Fasting)) 03/11/22 07:15 Calcium 8.6 mg/dl (8.5-10.1) 03/11/22 07:15 Magnesium 2.1 mg/dl (1.7-2.4) 03/07/22 11:55 Total Bilirubin 0.5 mg/dl (0.2-1.0) 03/07/22 11:55 AST 15 U/L (13-39) 03/07/22 11:55 ALT 12 U/L (7-52) 03/07/22 11:55 Alkaline Phosphatase 118 U/L (34-104) H 03/07/22 11:55 Troponin I High Sens 30.3 pg/ml (0-14) H 03/08/22 08:33 Total Protein 6.9 gm/dl (6.0-8.3) 03/07/22 11:55 Albumin 3.9 gm/dl (3.4-5.0) 03/07/22 11:55 Globulin 3.0 gm/dl (2.5-4.0) 03/07/22 11:55 Albumin/Globulin Ratio 1.3 (0.9-2) 03/07/22 11:55 Triglycerides 106 mg/dl (0-150) 03/10/22 06:59 Cholesterol 133 mg/dl (0-200) 03/10/22 06:59 LDL Cholesterol, Calc 48 mg/dl 03/10/22 06:59 VLDL Cholesterol, Calc 21 mg/dl (0-30) 03/10/22 06:59 HDL Cholesterol 64 mg/dl 03/10/22 06:59 Cholesterol/HDL Ratio 2.1 (0-5) 03/10/22 06:59 Urine Color Yellow 03/07/22 17:34 Urine Appearance Clear (Clear) 03/07/22 17:34 Urine pH 6.5 (4.5-7.5) 03/07/22 17:34 Ur Specific [place] 1.021 (1.000-1.030) 03/07/22 17:34 Urine Protein Trace (Negative) H 03/07/22 17:34 Urine Glucose (UA) Negative (Negative) 03/07/22 17:34 Urine Ketones Negative (Negative) 03/07/22 17:34 Urine Blood Negative (Negative) 03/07/22 17:34 Urine Nitrite Negative (Negative) 03/07/22 17:34 Urine Bilirubin Negative (Negative) 03/07/22 17:34 Urine Urobilinogen Negative (Negative) 03/07/22 17:34 Ur Leukocyte Esterase Negative (Negative) 03/07/22 17:34 Urine WBC (Auto) 1-5 /hpf (0-5) 03/07/22 17:34 Urine RBC (Auto) 0-4 /hpf (0-4) 03/07/22 17:34 U Hyaline Cast (Auto) 0 /lpf (0-5) 03/07/22 17:34 U Epithel Cells (Auto) >30 /lpf (0-5) H 03/07/22 17:34 Urine Bacteria (Auto) Negative (Negative) 03/07/22 17:34 Urine Crystals Not Reportable 03/07/22 17:34 Calcium Oxalate Crystal Present (None Prsent) A 03/07/22 17:34 SARS-CoV-2 (PCR) POSITIVE (Negative) A* 03/07/22 12:03 Influenza Type A (PCR) Negative (Neg) 03/07/22 12:03 Influenza Type B (PCR) Negative (Neg) 03/07/22 12:03 RSV (RT-PCR) Negative (Neg) 03/07/22 12:03 Impressions Chest X-Ray 03/07/22 11:42 SINGLE VIEW CHEST CLINICAL HISTORY: Dyspnea FINDINGS: An AP, portable, upright chest radiograph is compared to study dated 01/03/2021. The examination is degraded by portable technique and patient rotation. The heart is mildly enlarged noting atherosclerotic calcification of the thoracic aorta. The pulmonary vasculature is noncongested. Subpleural reticulation is seen throughout both lungs. Emphysema and chronic interstitial thickening is similar to previous. There is bibasilar scarring/atelectasis. No airspace consolidation or large pleural effusion is identified. No pneumothorax is seen. The skeletal structures are osteopenic. The bony thorax is grossly intact. IMPRESSION: No acute cardiopulmonary abnormality. ACT 112: Negative or not required by law. Electronically signed by: Edward Rossi M.D. 03/07/2022 12:22 PM Venous Doppler Study 03/07/22 13:04 ULTRASOUND RIGHT LOWER EXTREMITY VENOUS CLINICAL HISTORY: Right leg pain and weakness. COMPARISON STUDY: No priors. TECHNIQUE: Real-time, grayscale, and color Doppler sonography of the deep veins of the right lower extremity was performed from the inguinal crease to the calf. Compression and augmentation were utilized. FINDINGS: There is no sonographic evidence of deep venous thrombosis identified in the right lower extremity. The common femoral, superficial femoral, and popliteal veins are patent and normally compressible. The greater saphenous vein and the profunda femoris vein at the junction with the common femoral vein are clear. The visualized calf veins are patent. Atherosclerotic plaque is seen throughout the relative short arteries. There is a focal short segment occlusion of the proximal right superficial femoral artery. IMPRESSION: 1. There is no sonographic evidence of deep venous thrombosis identified in the right lower extremity. 2. There is focal occlusion of the proximal right superficial femoral artery. ACT 112: Negative or not required by law. Electronically signed by: Edward Rossi M.D. 03/07/2022 6:30 PM Femur X-Ray 03/07/22 16:22 RIGHT FEMUR 3 VIEWS CLINICAL HISTORY: Atraumatic right leg pain. FINDINGS: AP, frog-leg, and crosstable lateral views of the right femur are obtained. No prior studies are available for comparison at the time of dictation. The skeletal structures are osteopenic. There is no radiographic evidence of right femoral fracture. The visualized right hemipelvis appears intact. Mild arthritic change and joint space narrowing is seen in the hip. The knee joint is grossly maintained. The overlying soft tissues are within normal limits. There is advanced atherosclerotic calcification of the right femoral artery. IMPRESSION: No acute bony abnormality is identified. Electronically signed by: Edward Rossi M.D. 03/07/2022 6:05 PM Knee X-Ray 03/07/22 16:22 RIGHT KNEE 2 VIEWS CLINICAL HISTORY: Atraumatic right knee pain. FINDINGS: AP and crosstable lateral views of the right knee are obtained. No prior studies are available for comparison at the time of dictation. The skeletal structures are osteopenic. No fracture is seen. There is mild tricompartmental degenerative joint space narrowing. No joint effusion is identified. The overlying soft tissues are within normal limits. Atherosclerotic calcification is noted in the popliteal artery. IMPRESSION: No acute bony abnormality is identified. Electronically signed by: Edward Rossi M.D. 03/07/2022 6:11 PM Ankle Brachial Index 03/07/22 20:12 ULTRASOUND ANKLE BRACHIAL INDICES CLINICAL HISTORY: Focal occlusion of the right femoral artery. COMPARISON STUDY: Right lower extremity venous ultrasound dated 03/07/2022. FINDINGS: Ankle brachial indices were assessed in ultrasound. Right brachial pressure measured 167 and left brachial pressure measured 205. Pressures in the right posterior tibial artery measured 117 for an ASHISH of 0.57, and pressures in the right dorsalis pedis measure 106 for an ASHISH of 0.52. Pressures in the left posterior tibial artery measured 114 for an ASHISH of 0.56, and pressures in the left dorsalis pedis measure 109 for an ASHISH of 0.53. IMPRESSION: Ankle-brachial indices as above. Electronically signed by: Edward Rossi M.D. 03/07/2022 10:[address] 03/09/22 16:30 CT OF THE CHEST WITHOUT IV CONTRAST CLINICAL HISTORY: Unintentional Weight Loss, Smoking History. COMPARISON STUDY: Chest radiographs March 07, 2022 and January 03, 2021. CT DOSE: 177.50 mGycm TECHNIQUE: Axial images of the chest were obtained without IV contrast. Images were reviewed in the axial, sagittal, and coronal planes. IV contrast was not administered for this examination. Automated exposure control was utilized for the study. A dose lowering technique was utilized adhering to the principles of ALARA. FINDINGS: No enlarged axillary, mediastinal or hilar lymph nodes are present. The size of the heart is normal. There is extensive coronary artery calcification. Mitral annular calcification is noted. There is extensive atherosclerotic plaque of the thoracic aorta. Mild aneurysmal dilatation of the mid descending thoracic aorta, measuring 3.9 cm is noted. There is mild dilatation of the central pulmonary arteries. Lungs are suboptimally assessed due to respiratory motion. No consolidation is identified to suggest pneumonia. Bilateral lower lobe subpleural cystic change/honeycombing is noted. There may be underlying emphysema as well. No suspicious pulmonary nodules are noted. There are numerous tiny bilateral upper lobe pulmonary nodules which measure up to 4 mm. These are probably benign. Central airways are grossly patent. No fracture or suspicious lesion within the visualized bony thorax is noted. Marked right renal atrophy is partially imaged. No convincing evidence for malignancy within the chest. IMPRESSION: 1. No convincing evidence for malignancy within the chest. 2. Lungs suboptimally assessed due to respiratory motion. Evidence for interstitial lung disease and suspected superimposed emphysema. 3. Mild aneurysmal dilatation of the mid descending thoracic aorta, measuring 3.9 cm. Extensive atherosclerotic calcification within the coronary arteries and thoracic aorta. 4. Mild dilatation of the central pulmonary arteries. This raises the possibility of pulmonary arterial hypertension. 5. Multiple tiny bilateral upper lobe pulmonary nodules. These are likely benign. A follow-up chest CT in 6 months to ensure stability is recommended. ACT 112: Negative or not required by law. Electronically signed by: Umer Curran M.D. 03/10/2022 9:25 AM Duplex Scan Lower Extremity Artery 03/10/22 00:00 BILATERAL LOWER EXTREMITY ARTERIAL DOPPLER ULTRASOUND CLINICAL HISTORY: Peripheral arterial disease. COMPARISON STUDY: Bilateral lower extremity arterial Doppler ultrasound October 26, 2013 and ankle to brachial indices March 07, 2022. TECHNIQUE: Color and duplex Doppler sonography of the arterial systems of both lower extremities was performed. FINDINGS: Extensive atherosclerotic plaque is noted within both lower extremities. There is monophasic flow within the bilateral common femoral arteries which raises the possibility of inflow disease. The proximal to mid right superficial femoral artery is occluded. There is distal reconstitution with monophasic flow within the distal right superficial femoral artery. There is monophasic flow within the right popliteal artery. No flow is identified within the mid to distal right anterior tibial and posterior tibial arteries. There is monophasic flow within the right peroneal and dorsalis pedis. The mid to distal left superficial femoral artery is occluded. Distal reconstitution is noted with monophasic flow within the left popliteal, anterior tibial, peroneal and dorsalis pedis vessels. No flow is identified within the left posterior tibial artery suggesting vessel occlusion. IMPRESSION: 1. Extensive atherosclerotic plaque within the bilateral lower extremities. Monophasic flow within the common femoral arteries which raises the possibility of inflow disease. 2. Occluded bilateral superficial femoral arteries with distal reconstitution, as above. Dampened, monophasic flow within the bilateral calf vessels. 3. Suspected occlusion of the mid to distal right posterior tibial and anterior tibial arteries and the left posterior tibial artery. ACT 112: Negative or not required by law. Electronically signed by: Umer Curran M.D. 03/10/2022 4:05 PM Hospital Course (1) COVID: Dyspnea /COVID -Noted to be positive on ED labs. Has been stable on room air throughout admission. -She was out of the window for Remdesivir as her symptoms started over a week ago -We continued her home breathing treatments, incentive spirometry, flutter therapy, and robitussin for cough for reccomend continuing this regimen at home - Was on prednisone for the 7 days prior to admission at 40mg; will plan to taper 30mg x3 days, 20mg x3 days, 10mg x3 days. Taper shoudl end 03/18 HTN Urgency -Patient has a long history of hypertension, was recently seen by her PCP on 03/02 and her dose of lisinopril was increased from 20 mg to 30 mg.We continued this increased dose of lisinopril. - Transitioned her metoprolol tartrate to succinate - Added 5mg amlodipine - Blood pressure still elevated but likely reactive in the setting of COVID, will need to be re-evaluated upon f/u with PCP. No signs of end organ damage; no headache, blurred vision, chest pain. Elevated Troponin -Initial high sensitivity Troponin elevated at 37, repeat 38, 30-> trending down -Denies chest pain - EKG with LVH, signs of inferior infarct on indeterminate age COPD -Chest xray was clear, will hold antibiotics for now - Has not been formally diagnosed, will need PFTs an OP - Chest CT significant for interstitial lung disease emphysema, mild dilation of central pulmonary arteries - Significant smoking history; nicotine patch ordered Pulmonary Nodule -Multiple small upper lobe pulmonary nodules, likely benign - will need repeat CT in 6 months focal occlusion of right superficial femoral artery -Patient has been having right lower extremity leg pain over the past week -No acute trauma, swelling, or erythema on exam -Right LE venous Doppler with focal occlusion of right superficial femoral artery -Xrays knee/femur negative - ASHISH in right and left LE 0.5-0.6 -> indicative fo moderate arterial disease - Vascular surgery will see as an OP, no acute invention. Was initially placed on a heparin drip which was d/c per recommendations of vascular surgery, No indication for anticoagulation at this point. HLD -peripheral vascular disease, signs of atherosclerotic calcifications of coronary arteries and thoracic aorta -Continue statin; increase to 40mg Total [id number]=809, LDL= 48, HDL- 64 (2) Hypertensive urgency: (3) Elevated troponin: (4) COPD with acute exacerbation: (5) Right leg pain: (6) Hyperlipidemia: (7) Tobacco use: (8) Generalized weakness: Total Time Total Time Spent Total Time Spent (In Minutes): <30 Discharge Plan Discharge Items Patient Disposition: Home - Self-Care Reason For Visit: SOB Discharge Diagnosis: COVID Activity: Per Instructions section Non-emergency contact: Primary Care Provider and Specialist Call non-emergency contact if: you have any medication questions and your symptoms worsen Follow-up/Referrals: Marissa Leon MD [Primary Care Provider] - Alonso Barros MD [Physician] - Diet: Regular and Heart Healthy Ambulatory Orders: Complete Blood Count with Diff (Routine) Timeframe: 20220313 Location: Determined by Patient Ordered By: Feli Valentin Comprehensive Metabolic Panel (Routine) Timeframe: 20220313 Location: Determined by Patient Ordered By: Feli Valentin Addtl Attending Provider Instructions: It was was our pleasure taking care of you here at [facility] from 03/07/2022 to 03/11/2022. You came into the hospital for difficulty with breathing/shortness of breath, cough, cold-like symptoms and weakness. You were admitted to the hospital due to COVID with associated COPD exacerbation. Please see below for a summary of your medical care: Shortness of breath /COVID / ? history of COPD: You tested positive for COVID-19 infection on 03/07/2022. You should remain in isolation until 03/12/2022. From 03/12/2022 to 03/17/2022 you should wear a mask if you must leave your house. Continue home breathing treatments. It is also recommended that you continue use of incentive spirometry and flutter valve therapy. You can use Robitussin as needed for cough. You received steroids (prednisone) while in the hospital and should continue a prednisone taper as ordered -- 30mg once daily for 3 days, 20mg once daily for 3 days, then 10mg once daily for 3 days. It is important that you follow up with your primary care provider. We recommend that you have outpatient pulmonary function testing. It is also important that you consider smoking cessation. Hypertension: You have a long history of hypertension and were recently seen by your PCP; at that time, your lisinopril was increased from 20mg to 30mg. Please continue to take lisinopril 30mg once daily. We have also started you on a second anti-hypertensive medication, amlodipine 5mg once daily, which you should also continue to take. Additionally, the metoprolol that you were taking was changed from a short-acting metoprolol (metoprolol tartrate) to a long-acting metoprolol (metoprolol succinate); the new prescription has been sent to your pharmacy. STOP use of metoprolol tartrate. Localized arterial occlusion: This is a small blockage in one of the arteries of your leg that prevents blood from flowing appropriately. No acute intervention was indicated during your hospitalization. However, you should follow up with vascular surgery, Dr. Barros, as an outpatient. Please take 81mg Aspirin (a baby aspirin) once daily. Pulmonary Nodules: Chest CT imaging showed multiple small nodules in both lungs. These are likely benign but it is important that you follow up with your family doctor and you should have a follow-up chest CT in 6 months to ensure stability. High cholesterol: Your cholesterol medication (statin) was increased during hospitalization. Continue with this increased dose, atorvastatin 40mg po once daily. Follow-up: You should be seen by your primary physician within the next week. As noted above, you should also establish care with vascular surgery, Dr. Barros, in the outpatient setting. Please call his office to schedule an appointment. Repeat outpatient labs were also ordered on discharge -- a CBC and CMP. These labs should be done in 2 days (03/13/2022). Medications: Your medication list has been reviewed and reconciled upon discharge to ensure accuracy and continuity of care. An updated list of all your medications is included with your hospital discharge paperwork. Please review this list closely, and make note of any changes. Take your medications as instructed; do not skip a dose of your medicines. Make sure all of your doctors know every medicine you are taking (including [id number] medicines, vitamins, and supplements). let your primary care provider know before taking any new medicines because some of these may interact with your current medications, or may make your symptoms worse. CONTACT YOUR PRIMARY CARE PROVIDER if you experience any of the following: Fevers or shaking chills Shortness of breath not relieved by inhalers, fainting Sudden abdominal distension not relieved by catheterization. Difficulty following your treatment plan, or difficulty taking medications CALL 911 OR GO TO THE EMERGENCY DEPARTMENT if you experience any of the following: Sudden, severe abdominal pain or nausea/vomiting Severe chest pain, or chest pain that radiates (moves) to your jaw or arm Sudden, severe shortness of breath or difficulty breathing Thank you for allowing us to participate in your care. Pending Studies at Discharge: No Stand-Alone Forms: My [facility], Smoking Cessation Medications and DC Order Prescriptions: New amlodipine [Norvasc] 5 mg Tablet 5 mg PO QAM 30 Days Qty: 30 0RF atorvastatin 40 mg Tablet 40 mg PO QAM 30 Days Qty: 30 0RF metoprolol succinate 50 mg Tablet Extended Release 24 Hr 100 mg PO HS 30 Days Qty: 60 0RF prednisone 10 mg Tablet 10 mg PO DIRECTED Qty: 18 0RF Rx Instructions: Take 30mg (3 tablets) by mouth once daily x3 days, then 20mg (2 tablets) by mouth once daily x3 days, then 10 mg (1 tablet) by mouth once daily x3 days. aspirin 81 mg Tablet,Delayed Release (Dr/Ec) 81 mg PO HS 30 Days Qty: 30 0RF Continued meloxicam 15 mg tablet 15 mg PO DAILY PRN (Reason: pain) Qty: 30 2RF Rx Instructions: Take with food albuterol sulfate 90 mcg/actuation HFA aerosol inhaler 2 puff inhalation QID PRN (Reason: shortness of breath or wheezing) Qty: 6.7 2RF ipratropium bromide 17 mcg/actuation HFA aerosol inhaler 2 puff inhalation QID PRN (Reason: shortness of breath or wheezing) Qty: 12.9 2RF lisinopril 10 mg tablet 30 mg PO HS acetaminophen [Tylenol Extra Strength] 500 mg Tablet 500 mg PO Q6H PRN (Reason: Pain) cholecalciferol (vitamin D3) 1,250 mcg (50,000 unit) capsule 50,000 unit PO WK Rx Instructions: Take 1 capsule once per week for 8 weeks then call PCP for next step Discontinued metoprolol tartrate 50 mg tablet 100 mg PO HS Qty: 180 2RF atorvastatin 20 mg tablet 20 mg PO HS Qty: 90 3RF prednisone 20 mg tablet 40 mg PO DAILY Qty: 10 0RF Rx Instructions: Take 2 tablets daily for 5 days tramadol 50 mg tablet 50 - 100 mg PO Q6H PRN (Reason: pain) Qty: 24 0RF aspirin 325 mg Tablet 325 mg PO HS Discharge Orders: Discharge Order (Routine); Ordered 03/11/22 Ordered By: Feli Valentin Admission Data Admit Date/Time: 03/07/22 15:53 Attending Provider: Jaden Parry Admit Provider: Car Vigil Primary Care Provider: Marissa Leon Other Providers: Car Vigil ; Janes Yu ; [facility] Other Interventions: Discharge Summary Assessment (RN) Last Done: 03/11/22 15:30 Supervising Physician Co-Signing Physician Notes I personally examined the patient and verified all ny points of history and exam, discussed case, and agree with decision making with Dr Warner Feeling well wants to go home. Instead of rehab. Daughter presentshe agrees s he wants to take patient home. vitals noted nad heent nc at mmm breathing unlabored no accessory muscles good effort skin no rashes no pallor or icterus neuro no focal deficits. COVID-19 precipitating COPD exacerbationcontinue steroids, supportive care. Doing surprisingly well. Safe for home in this regard uncontrolled hypertensionother than some degree of demand ischemia, no significant end-organ damage acutelyoutpatient management. Peripheral vascular diseaseno clear indication for acute intervention at this time, arterial doppler heavily implying chronicity, pain resolved, med management, discussed walking to promote collateral circulation. Follow-up PCP, vascular surgery if necessary. Safe for home given that she is going home with her daughter. Additional per resident documentation Resident Activity Tracking Resident Involvement: Resident Care Provided Care Provided: Adult Hospital Medicine
--- NOTE | 2022-03-12 19:20 | Billing Data ---
Date of Service March 11, 2022 Coding Level of Care Code D/C DAY MANAGEMENT <30 MINS
[2022-03-14] MEDS ORDERED: ERGOCALCIFEROL 50,000 UNITS 1250 MCG CAP PO SCH (09:00)
== END 2022-03-11 16:02 | disposition home or self-care (01) | DRG 178 ==
LOC: ED 11:37 → EDINP 15:53 → SUATTDRO 15:53 → INTOOBSV 15:53 → 2S 17:58
DX: E78.5 Hyperlipidemia, unspecified; E86.0 Dehydration; F17.210 Nicotine dependence, cigarettes, uncomplicated; I10 Essential (primary) hypertension; Z66 Do not resuscitate; J44.1 Chronic obstructive pulmonary disease with (acute) exacerbation; Z79.82 Long term (current) use of aspirin; R77.8 Other specified abnormalities of plasma proteins; Z28.310 Unvaccinated for COVID-19; U07.1 COVID-19; I70.212 Atherosclerosis of native arteries of extremities with intermittent claudication, left leg; Z83.3 Family history of diabetes mellitus; I16.0 Hypertensive urgency; R91.8 Other nonspecific abnormal finding of lung field; R79.89 Other specified abnormal findings of blood chemistry; I70.211 Atherosclerosis of native arteries of extremities with intermittent claudication, right leg

== ENCOUNTER 2022-09-08 20:52 | Inpatient (IN) ==
[2022-09-08] MEDS ORDERED: SODIUM CHLORIDE 0.9% 500 ML IV STA (21:43)
[2022-09-08] MEDS ORDERED: ALBUT/IPRATROP 3MG/0.5MG NEB 3 ML VIAL INH STA (21:43)
[2022-09-08] MEDS ORDERED: methylPREDNISolone 125 MG/2 ML VIAL IV STA (21:43)
[2022-09-08] MEDS: MAGNESIUM SULFATE / D5W 1 GM/100 ML BAG IV SCH ×2 (21:53→22:30)
[2022-09-08 21:56] LABS: Basophils # (auto) 0.03 K/uL (0-0.2); Basophils % (auto) 0.2 %; Hematocrit (blood only) 35.5 % (37.0-47.0); Immature Granulocytes # (auto) 0.09 K/uL (0.01-0.20); Immature Granulocytes % (auto) 0.5 %; Lymphocytes # (auto) 1.32 K/uL (1.2-3.4); Lymphocytes % (auto) 7.4 %; Mean Corpuscular Hemoglobin 29.3 pg (25.0-34.0); Mean Corpuscular Hgb Conc 33.8 g/dL (32.0-36.0); Mean Corpuscular Volume 86.6 fL (80.0-100.0); Mean Platelet Volume 10.3 fL (9.4-12.4); Monocytes # (auto) 1.47 K/uL (0.11-0.59); Monocytes % (auto) 8.3 %; Neutrophils # (auto) 14.84 K/uL (1.40-6.50); Neutrophils % (auto) 83.6 %; Platelet Count 262 K/uL (130-400); RDW Coefficient of Variation 14.5 % (11.5-14.5); RDW Standard Deviation 45.9 fL (36.4-46.3); White Blood Count 17.75 K/ul (4.8-10.8)
[2022-09-08] MEDS ORDERED: PIPERACILLIN/TAZOBACTAM 4.5 GM/120 ML BAG IV ONE (22:26)
--- NOTE | 2022-09-08 22:26 | Emergency Department Note ---
Impression & Plan Acute hypoxemic respiratory failure, Elevated troponin, Acute renal failure, Hyperkalemia, Respiratory acidosis with metabolic acidosis, Endotracheally intubated, Acute exacerbation of chronic obstructive pulmonary disease ED Provider Note NAME: JUSTINA SCHMID AGE: 77 SEX: F : 1945 ARRIVES VIA: Walk-In INFORMANT: Patient, ED PROVIDER(S): Tyrell Tejeda MD CHIEF COMPLAINT: Shortness of breath MEDICAL DECISION MAKING: Patient presented due to concern for shortness of breath. The patient did appear tachypneic and was struggling and working to breathe. Next IV was established blood work was obtained the patient was placed on BiPAP and ordered IV please take your steroids preferably in the morning and with food as they may cause some upset stomach and cause you to be very awake and alert. If you are taking ASA/Plavix please take Nexium or another type of proton pump inhibitor during the course of your steroids to help avoid GI upset/gastritis/GI bleeding. IV fluids blood work and chest x-ray. The patient did seem to tolerate the BiPAP fairly well initially. Patient's chest x-ray does show some bibasilar consolidations with an associated white count. The patient did have blood cultures added along with a VBG lactate and Zosyn was ordered along with a MRSA swab. Patient's white count was 17 with a normal hemoglobin and platelet count. The patient's labs were unremarkable. The patient did have acute renal failure with a creatinine of 7.2 BUN of 112. The patient was ordered additional IV fluids as well as medications to help improve her potassium as it was 6.4. Patient was ordered an hour-long of albuterol in addition to insulin 10 IV as well as 2 A of D50. Hyponatremia noted at 125. The patient does have an anion gap of 17 and lower bicarb. Is consistent with a metabolic acidosis. The patient was ordered additional IV fluids as well. Troponin is 67. Patient was ordered a CT of the abdomen pelvis noncontrast. The patient did do a go over the scan. Upon returning from scan the patient did appear more uncomfortable and was placed back on BiPAP. Patient CT of the abdomen pelvis did not show any obstruction. CK had also been added. CK was negative. Patient was noted to have bilateral pleural effusions with atelectasis cardiomegaly and diverticulosis but without diverticulitis. I did discuss CODE STATUS as well as intubation status with the daughters at bedside. They would like for the patient to be intubated if needed. Given the patient's significant work of breathing as well as her associated metabolic acidosis do believe the patient would benefit from intubation at this time as I do not think that she will be able to maintain her breathing on her own. The decision was made to intubate the patient. Patient was moved toward the large resuscitation bay's. Of note the patient had already been ordered a bicarb drip. The patient was given an amp of bicarb prior to medications given etomidate and rocuronium. The patient was intubated without difficulty and postintubation chest x-ray confirmed appropriate placement as well as positive lung sounds color change and pulse oximeter. I did speak with the on-call hospitalist as well as the intensive care unit. She is Ernie BLOOD was also present at the bedside. The patient did receive a second amp of bicarb postintubation. The patient was admitted to the intensive care unit and the hospitalist service Dr. Ballesteros was also in consultation. Critical Care: I have personally spent 125 minutes of critical care time in direct management of this patient. This includes bedside care, interpretation of diagnostic studies, and testing, discussion with consultants, patient, and family members, and other require inpatient management activities. This 125 minutes is in excess of all separately billable procedures. Prior /Outside records reviewed: I did review a wellness visit from Dr. Polanco's office from June 2022 Differential diagnosis: Reactive airway disease, pneumonia, pneumothorax, COPD, CHF, infections, cardiac ischemia, pulmonary embolism, musculoskeletal, gastrointestinal, as well as other pathologies. Diagnostics, as interpreted by me: ECG: Normal sinus rhythm, rate of 63, normal intervals normal axis no ST elevations Repeat EKG interpreted by me Normal sinus rhythm, rate of 83, normal intervals normal axis no ST elevations. Cardiac monitoring: An order was placed for continuous cardiac monitoring. The monitor shows a rate of 77 with sinus rhythm. Patient was placed on pulse oximetry Medical decision rules: None Imaging studies: See below I informally reviewed the patient's initial chest x-ray which showed bibasilar consolidations. Repeat x-ray was informally reviewed by myself postintubation which did show appropriate placement of the ET tube but worsening consolidation right lower lobe. HPI: Patient presents due to concern for shortness of breath. The patient developed her shortness of breath after having bouts of diarrhea over the weekend. Patient reportedly has no chest pains has had cough but is nonproductive. Former smoker not on oxygen. The patient does not wear any CPAP at home. Patient has been trialing her inhalers but without significant improvement in symptoms. No leg swelling or calf pain. The patient does follow with Dr. Leon. No recent falls or trauma. Patient has had exertional dyspnea. No leg swelling. The patient also had reported 4 episodes daily of diarrhea since Wednesday. No known sick contacts or recent travel. No recent antibiotics use or untreated stream or well water. Patient does feel short of breath currently at rest PAST MEDICAL HISTORY: See Below PAST SURGICAL HISTORY: See Below SOCIAL HISTORY: See Below HOME MEDICATIONS: See Below ALLERGIES: See Below VITALS: See Below PHYSICAL EXAMINATION: GENERAL: Ill in appearance with increased work of breathing, wearing glasses, hard of hearing EYE EXAM: Normal conjunctiva. PERRL, no anisocoria and EOM's grossly intact w/o pain. NECK: Supple, no nuchal rigidity, no adenopathy, non-tender. No signs of meningismus. FROM of the neck with good chin to chest and neck extension. No stridor. LUNGS: Diffuse wheezes inspiratory next-door throughout with increased work of breathing and shallow breathing. Mild tachypnea noted HEART: NSR, no MRG. ABDOMEN: Abdomen soft, non-tender, no masses, no rebound or guarding. BACK: No CVA TTP. SKIN: No rashes and no bruising. UPPER EXTREMITIES: Upper extremities are grossly normal. LOWER EXTREMITIES: Grossly normal, no edema. Negative Homans' sign bilaterally NEURO EXAM: A&O x3, cranial nerves II-XII grossly intact, normal speech, moves all 4 extremities. Past Med/Surg History Medical History Advanced care planning/counseling discussion Anxiety Dyspnea and respiratory abnormalities Fracture of distal end of right radius with malunion History of anxiety Hyperlipidemia Hypertension Osteoarthritis PAD (peripheral artery disease) Palliative care by specialist Radius fracture RT Surgical History H/O carotid endarterectomy LEFT H/O wrist surgery RT 40 YRS AGO H/O: hysterectomy History of cataract surgery RT/LEFT History of colonoscopy History of surgery on right wrist Right Distal Radius Open Reduction Internal Fixation History of tooth extraction Family History Brother Family history of diabetes mellitus Social History Smoking Status: Former smoker Age Started Using Tobacco: 13; Age Quit Using Tobacco: 77; Cigarettes Per Day: 10; Second Hand Exposure: No; Do You Dip or Chew Tobacco: No; Hx Alcohol Use: No Hx Substance Use: No Preferred Language: Gibraltarian Communication Ability: Unable Hearing Ability: Use of Hearing Aid Supervisor White Sugar Required: No Beliefs That Will Affect Care: None marital status: Current Living Situation: Family current occupational status: retired How many Children do You have: 4 Feels Safe at Home: Yes Childhood Exposure to Second-Hand Smoke: Yes Diet: regular Dental Care, Regularly: Yes Physical Activity Frequency: 1-2 Times per Week Seatbelt Use: sometimes Sunscreen Use: No Assistive Devices: Cane Allergies Allergies Allergy/AdvReac Type Severity Reaction Status Date / Time No Known Allergies Allergy Verified 09/08/22 21:57 Home Meds Home Medications Medication Instructions Recorded Confirmed acetaminophen 500 mg tablet 500 mg PO Q6H PRN Pain 08/04/19 09/08/22 (Tylenol Extra Strength) aspirin 81 mg tablet,delayed 81 mg PO DAILY 09/08/22 09/08/22 release Previous Rx's Medication Instructions Recorded albuterol sulfate 90 mcg/actuation 2 puff inhalation QID PRN 03/02/22 aerosol inhaler shortness of breath or wheezing #6.7 grams ipratropium bromide 17 2 puff inhalation QID PRN 03/02/22 mcg/actuation HFA aerosol inhaler shortness of breath or wheezing #12.9 grams atorvastatin 40 mg tablet 40 mg PO QAM 30 days #30 tabs 03/31/22 lisinopril 10 mg tablet 30 mg PO HS #90 tabs 03/31/22 amlodipine 5 mg tablet (Norvasc) 5 mg PO QAM 30 days #30 tabs 04/02/22 metoprolol succinate 50 mg 100 mg PO HS 30 days #60 tabs 04/02/22 tablet,extended release 24 hr escitalopram oxalate 5 mg tablet 5 mg PO DAILY #30 tabs 08/28/22 (Lexapro) Results & Data (ED) Vital Signs Vital Signs - 24 hr 09/08/22 20:53 09/08/22 20:57 09/08/22 21:26 Temperature 36.8 C Temperature Source Temporal Artery Scan Pulse Rate 65 Pulse Rate [Finger] Pulse Rate from SpO2 Sensor Pulse Rhythm Regular Pulse Strength Normal Respiratory Rate 20 Respiratory Effort / Characteristics Non-Labored Spontaneous Non-Labored Spontaneous Respiratory Depth Normal Normal Respiratory Pattern Regular Blood Pressure 156/72 H Blood Pressure Mean 100 Blood Pressure Position Sitting Pulse Oximetry 93 91 Oxygen Delivery Method Room Air Room Air Room Air Oxygen Flow Rate 0 Fraction of Inspired Oxygen Sepsis Recent Fever Within 48 Hours No Sepsis New/Unexplained Change in Mental Status N/A Sepsis Action Taken by Nursing No Action Required 09/08/22 21:31 09/08/22 22:00 09/08/22 21:50 Temperature Temperature Source Pulse Rate 63 Pulse Rate [Finger] 72 Pulse Rate from SpO2 Sensor Pulse Rhythm Pulse Strength Respiratory Rate 31 H Respiratory Effort / Characteristics Spontaneous Respiratory Depth Respiratory Pattern Blood Pressure Blood Pressure Mean Blood Pressure Position Pulse Oximetry 100 30 L Oxygen Delivery Method BiPAP BiPAP Oxygen Flow Rate Fraction of Inspired Oxygen Sepsis Recent Fever Within 48 Hours Sepsis New/Unexplained Change in Mental Status Sepsis Action Taken by Nursing 09/08/22 21:54 09/08/22 21:45 09/08/22 22:00 Temperature Temperature Source Pulse Rate 68 64 66 Pulse Rate [Finger] Pulse Rate from SpO2 Sensor 65 66 Pulse Rhythm Pulse Strength Respiratory Rate 29 H 26 H 23 Respiratory Effort / Characteristics Spontaneous Respiratory Depth Normal Respiratory Pattern Tachypnea Blood Pressure 168/70 H 166/95 H Blood Pressure Mean 102 118 Blood Pressure Position Pulse Oximetry 94 92 100 Oxygen Delivery Method Room Air BiPAP Nebulizer Oxygen Flow Rate Fraction of Inspired Oxygen 30 Sepsis Recent Fever Within 48 Hours Sepsis New/Unexplained Change in Mental Status Sepsis Action Taken by Nursing 09/08/22 22:15 09/08/22 22:30 09/08/22 23:13 Temperature Temperature Source Pulse Rate 65 67 Pulse Rate [Finger] 74 Pulse Rate from SpO2 Sensor 65 67 Pulse Rhythm Pulse Strength Respiratory Rate 28 H 26 H 28 H Respiratory Effort / Characteristics Non-Labored Spontaneous Respiratory Depth Respiratory Pattern Blood Pressure 177/86 H 185/88 H Blood Pressure Mean 116 120 Blood Pressure Position Pulse Oximetry 100 100 100 Oxygen Delivery Method BiPAP Nebulizer BiPAP Nebulizer BiPAP Oxygen Flow Rate Fraction of Inspired Oxygen 30 Sepsis Recent Fever Within 48 Hours Sepsis New/Unexplained Change in Mental Status Sepsis Action Taken by Nursing 09/09/22 00:06 09/08/22 22:45 09/08/22 23:00 Temperature Temperature Source Pulse Rate 79 72 72 Pulse Rate [Finger] Pulse Rate from SpO2 Sensor 72 73 Pulse Rhythm Pulse Strength Respiratory Rate 30 H 20 20 Respiratory Effort / Characteristics Spontaneous Short of Breath Respiratory Depth Shallow Respiratory Pattern Tachypnea Blood Pressure 168/105 H Blood Pressure Mean 126 Blood Pressure Position Pulse Oximetry 94 100 100 Oxygen Delivery Method BiPAP BiPAP Oxygen Flow Rate Fraction of Inspired Oxygen 30 Sepsis Recent Fever Within 48 Hours Sepsis New/Unexplained Change in Mental Status Sepsis Action Taken by Nursing 09/08/22 23:15 09/08/22 23:30 09/09/22 00:00 Temperature Temperature Source Pulse Rate 76 78 Pulse Rate [Finger] Pulse Rate from SpO2 Sensor 76 71 78 Pulse Rhythm Pulse Strength Respiratory Rate 19 28 H Respiratory Effort / Characteristics Respiratory Depth Respiratory Pattern Blood Pressure 174/99 H Blood Pressure Mean 124 Blood Pressure Position Pulse Oximetry 100 92 93 Oxygen Delivery Method BiPAP Nasal Cannula Oxymask Oxygen Flow Rate 2 4 Fraction of Inspired Oxygen Sepsis Recent Fever Within 48 Hours Sepsis New/Unexplained Change in Mental Status Sepsis Action Taken by Nursing 09/09/22 00:15 09/09/22 00:39 09/09/22 00:45 Temperature Temperature Source Pulse Rate 83 120 H 101 H Pulse Rate [Finger] Pulse Rate from SpO2 Sensor 83 Pulse Rhythm Pulse Strength Respiratory Rate 24 38 H 23 Respiratory Effort / Characteristics Respiratory Depth Respiratory Pattern Blood Pressure 174/98 H 110/82 131/62 Blood Pressure Mean 123 91 85 Blood Pressure Position Pulse Oximetry 100 Oxygen Delivery Method BiPAP Oxygen Flow Rate Fraction of Inspired Oxygen Sepsis Recent Fever Within 48 Hours Sepsis New/Unexplained Change in Mental Status Sepsis Action Taken by Nursing 09/09/22 01:01 09/09/22 01:15 09/09/22 00:40 Temperature Temperature Source Pulse Rate 99 H 110 H 114 H Pulse Rate [Finger] Pulse Rate from SpO2 Sensor 99 H 110 H Pulse Rhythm Pulse Strength Respiratory Rate 26 H 26 H Respiratory Effort / Characteristics Respiratory Depth Respiratory Pattern Blood Pressure 156/93 H 180/78 H Blood Pressure Mean 114 112 Blood Pressure Position Pulse Oximetry 99 100 Oxygen Delivery Method Mechanical Vent Mechanical Vent Oxygen Flow Rate Fraction of Inspired Oxygen Sepsis Recent Fever Within 48 Hours Sepsis New/Unexplained Change in Mental Status Sepsis Action Taken by Nursing 09/09/22 00:40 Temperature Temperature Source Pulse Rate 88 Pulse Rate [Finger] Pulse Rate from SpO2 Sensor Pulse Rhythm Pulse Strength Respiratory Rate 26 H Respiratory Effort / Characteristics Respiratory Depth Respiratory Pattern Blood Pressure Blood Pressure Mean Blood Pressure Position Pulse Oximetry 100 Oxygen Delivery Method Oxygen Flow Rate Fraction of Inspired Oxygen 40 Sepsis Recent Fever Within 48 Hours Sepsis New/Unexplained Change in Mental Status Sepsis Action Taken by Detention Medications Current Medication List: was personally reviewed by me Laboratory Data Attestation: I reviewed the patient's lab results. 09/08/22 21:30 09/08/22 21:30 Lab Results 09/08/22 09/08/22 09/08/22 Range/Units 21:30 21:30 21:30 WBC 17.75 H (4.8-10.8) K/ul RBC 4.10 L (4.20-5.40) M/uL Hgb 12.0 (12.0-16.0) g/dl POC Hgb (12.0-16.0) g/dl Hct 35.5 L (37.0-47.0) % POC Hct (37-47) % MCV 86.6 (80.0-100.0) fL MCH 29.3 (25.0-34.0) pg MCHC 33.8 (32.0-36.0) g/dL RDW Std Deviation 45.9 (36.4-46.3) fL RDW Coeff of Angela 14.5 (11.5-14.5) % Plt Count 262 (130-400) K/uL MPV 10.3 (9.4-12.4) fL Immature Gran % (Auto) 0.5 % Neut % (Auto) 83.6 % Lymph % (Auto) 7.4 % [facility] % (Auto) 8.3 % Eos % (Auto) 0.0 % Baso % (Auto) 0.2 % Neut # (Auto) 14.84 H (1.40-6.50) K/uL Lymph # (Auto) 1.32 (1.2-3.4) K/uL [facility] # (Auto) 1.47 H (0.11-0.59) K/uL Eos # (Auto) 0.00 (0-0.50) K/uL Baso # (Auto) 0.03 (0-0.2) K/uL Immature Gran # (Auto) 0.09 (0.01-0.20) K/uL PT 11.2 (9.0-12.0) Seconds INR 1.0 (0.9-1.1) APTT 25.3 (21.0-31.0) Seconds PTT Ratio 0.9 POC pH (7.35-7.45) POC pCO2 (35-46) mmHg POC pO2 (80-95) mmHg POC HCO3 (19-24) sean/L POC Base Excess (-9-1.8) sean/L POC ABG O2 Sat (90-95) % VBG pH (7.36-7.41) VBG pCO2 (38-50) mmHg VBG pO2 mmHg VBG HCO3 mmol/L VBG O2 Saturation % VBG Base Excess mEq/L POC Sodium (135-144) mmol/L Sodium 125 L (136-145) mmol/L POC Potassium (3.3-5.0) mmol/L Potassium 6.4 H* (3.5-5.1) mmol/L POC Chloride (101-112) mmol/L Chloride 92 L (98-107) mmol/L Carbon Dioxide 16 L (21-32) mmol/L POC Total CO2 (24-31) mmol/L Anion Gap 17 H (3-11) POC Anion Gap (16-25) mmol/L POC BUN (7-18) mg/dl BUN 112 H (6-23) mg/dl Creatinine 7.25 H* (0.6-1.2) mg/dl POC Creatinine (0.6-1.3) mg/dl Est Cr Clr Drug Dosing Not Reportable Est GFR ( Amer) 5.7 ml/min Est GFR (Non-Af Amer) 4.9 ml/min BUN/Creatinine Ratio 15.4 (10-20) Glucose 123 H (70-99(Fasting)) mg/dl POC Glucose (70-99) mg/dl POC Glucose (other) (70-99) mg/dl Lactate (0.4-2.0) mmol/L Calcium 8.3 L (8.6-10.3) mg/dl POC Ioniz Calcium Kwaku (1.12-1.32) mmol/l Total Bilirubin 0.5 (0.2-1.0) mg/dl AST 49 H (13-39) U/L ALT 63 H (7-52) U/L Alkaline Phosphatase 91 (34-104) U/L Total Creatine Kinase (26-192) U/L Troponin I High Sens 67.1 H* (0-14) pg/ml Total Protein 7.0 (6.0-8.3) gm/dl Albumin 3.6 (3.4-5.0) gm/dl Globulin 3.4 (2.5-4.0) gm/dl Albumin/Globulin Ratio 1.1 (0.9-2) Procalcitonin (0-0.5) ng/ml Nasal Screen MRSA (PCR) (Negative) SARS-CoV-2 (PCR) (Negative) Influenza Type A (PCR) (Neg) Influenza Type B (PCR) (Neg) RSV (RT-PCR) (Neg) 09/08/22 09/08/22 09/08/22 Range/Units 21:30 21:44 22:53 WBC (4.8-10.8) K/ul RBC (4.20-5.40) M/uL Hgb (12.0-16.0) g/dl POC Hgb 12.2 (12.0-16.0) g/dl Hct (37.0-47.0) % POC Hct 36 L (37-47) % MCV (80.0-100.0) fL MCH (25.0-34.0) pg MCHC (32.0-36.0) g/dL RDW Std Deviation (36.4-46.3) fL RDW Coeff of Angela (11.5-14.5) % Plt Count (130-400) K/uL MPV (9.4-12.4) fL Immature Gran % (Auto) % Neut % (Auto) % Lymph % (Auto) % [facility] % (Auto) % Eos % (Auto) % Baso % (Auto) % Neut # (Auto) (1.40-6.50) K/uL Lymph # (Auto) (1.2-3.4) K/uL [facility] # (Auto) (0.11-0.59) K/uL Eos # (Auto) (0-0.50) K/uL Baso # (Auto) (0-0.2) K/uL Immature Gran # (Auto) (0.01-0.20) K/uL PT (9.0-12.0) Seconds INR (0.9-1.1) APTT (21.0-31.0) Seconds PTT Ratio POC pH (7.35-7.45) POC pCO2 (35-46) mmHg POC pO2 (80-95) mmHg POC HCO3 (19-24) sean/L POC Base Excess (-9-1.8) sean/L POC ABG O2 Sat (90-95) % VBG pH (7.36-7.41) VBG pCO2 (38-50) mmHg VBG pO2 mmHg VBG HCO3 mmol/L VBG O2 Saturation % VBG Base Excess mEq/L POC Sodium 124 L (135-144) mmol/L Sodium (136-145) mmol/L POC Potassium 6.7 H* (3.3-5.0) mmol/L Potassium (3.5-5.1) mmol/L POC Chloride 97 L (101-112) mmol/L Chloride (98-107) mmol/L Carbon Dioxide (21-32) mmol/L POC Total CO2 19 L (24-31) mmol/L Anion Gap (3-11) POC Anion Gap 16.0 (16-25) mmol/L POC BUN 135 H* (7-18) mg/dl BUN (6-23) mg/dl Creatinine (0.6-1.2) mg/dl POC Creatinine 8.2 H* (0.6-1.3) mg/dl Est Cr Clr Drug Dosing Est GFR ( Amer) ml/min Est GFR (Non-Af Amer) ml/min BUN/Creatinine Ratio (10-20) Glucose (70-99(Fasting)) mg/dl POC Glucose (70-99) mg/dl POC Glucose (other) 150 H (70-99) mg/dl Lactate (0.4-2.0) mmol/L Calcium (8.6-10.3) mg/dl POC Ioniz Calcium Kwaku 1.02 L (1.12-1.32) mmol/l Total Bilirubin (0.2-1.0) mg/dl AST (13-39) U/L ALT (7-52) U/L Alkaline Phosphatase (34-104) U/L Total Creatine Kinase (26-192) U/L Troponin I High Sens (0-14) pg/ml Total Protein (6.0-8.3) gm/dl Albumin (3.4-5.0) gm/dl Globulin (2.5-4.0) gm/dl Albumin/Globulin Ratio (0.9-2) Procalcitonin 0.65 H (0-0.5) ng/ml Nasal Screen MRSA (PCR) (Negative) SARS-CoV-2 (PCR) NEGATIVE (Negative) Influenza Type A (PCR) Negative (Neg) Influenza Type B (PCR) Negative (Neg) RSV (RT-PCR) Negative (Neg) 09/08/22 09/08/22 09/08/22 Range/Units 22:56 22:56 22:56 WBC (4.8-10.8) K/ul RBC (4.20-5.40) M/uL Hgb (12.0-16.0) g/dl POC Hgb (12.0-16.0) g/dl Hct (37.0-47.0) % POC Hct (37-47) % MCV (80.0-100.0) fL MCH (25.0-34.0) pg MCHC (32.0-36.0) g/dL RDW Std Deviation (36.4-46.3) fL RDW Coeff of Angela (11.5-14.5) % Plt Count (130-400) K/uL MPV (9.4-12.4) fL Immature Gran % (Auto) % Neut % (Auto) % Lymph % (Auto) % [facility] % (Auto) % Eos % (Auto) % Baso % (Auto) % Neut # (Auto) (1.40-6.50) K/uL Lymph # (Auto) (1.2-3.4) K/uL [facility] # (Auto) (0.11-0.59) K/uL Eos # (Auto) (0-0.50) K/uL Baso # (Auto) (0-0.2) K/uL Immature Gran # (Auto) (0.01-0.20) K/uL PT (9.0-12.0) Seconds INR (0.9-1.1) APTT (21.0-31.0) Seconds PTT Ratio POC pH (7.35-7.45) POC pCO2 (35-46) mmHg POC pO2 (80-95) mmHg POC HCO3 (19-24) sean/L POC Base Excess (-9-1.8) sean/L POC ABG O2 Sat (90-95) % VBG pH 7.22 L (7.36-7.41) VBG pCO2 46 (38-50) mmHg VBG pO2 45 mmHg VBG HCO3 19 mmol/L VBG O2 Saturation 72.1 % VBG Base Excess -8.8 mEq/L POC Sodium (135-144) mmol/L Sodium 125 L (136-145) mmol/L POC Potassium (3.3-5.0) mmol/L Potassium 6.4 H* (3.5-5.1) mmol/L POC Chloride (101-112) mmol/L Chloride 93 L (98-107) mmol/L Carbon Dioxide 18 L (21-32) mmol/L POC Total CO2 (24-31) mmol/L Anion Gap 14 H (3-11) POC Anion Gap (16-25) mmol/L POC BUN (7-18) mg/dl BUN 110 H (6-23) mg/dl Creatinine 7.18 H* (0.6-1.2) mg/dl POC Creatinine (0.6-1.3) mg/dl Est Cr Clr Drug Dosing Not Reportable Est GFR ( Amer) 5.7 ml/min Est GFR (Non-Af Amer) 4.9 ml/min BUN/Creatinine Ratio 15.3 (10-20) Glucose 148 H (70-99(Fasting)) mg/dl POC Glucose (70-99) mg/dl POC Glucose (other) (70-99) mg/dl Lactate 0.9 (0.4-2.0) mmol/L Calcium 8.0 L (8.6-10.3) mg/dl POC Ioniz Calcium Kwaku (1.12-1.32) mmol/l Total Bilirubin (0.2-1.0) mg/dl AST (13-39) U/L ALT (7-52) U/L Alkaline Phosphatase (34-104) U/L Total Creatine Kinase 147 (26-192) U/L Troponin I High Sens (0-14) pg/ml Total Protein (6.0-8.3) gm/dl Albumin (3.4-5.0) gm/dl Globulin (2.5-4.0) gm/dl Albumin/Globulin Ratio (0.9-2) Procalcitonin (0-0.5) ng/ml Nasal Screen MRSA (PCR) (Negative) SARS-CoV-2 (PCR) (Negative) Influenza Type A (PCR) (Neg) Influenza Type B (PCR) (Neg) RSV (RT-PCR) (Neg) 09/09/22 09/09/22 09/09/22 Range/Units 00:26 01:03 01:04 WBC (4.8-10.8) K/ul RBC (4.20-5.40) M/uL Hgb (12.0-16.0) g/dl POC Hgb 9.9 L (12.0-16.0) g/dl Hct (37.0-47.0) % POC Hct 29 L (37-47) % MCV (80.0-100.0) fL MCH (25.0-34.0) pg MCHC (32.0-36.0) g/dL RDW Std Deviation (36.4-46.3) fL RDW Coeff of Angela (11.5-14.5) % Plt Count (130-400) K/uL MPV (9.4-12.4) fL Immature Gran % (Auto) % Neut % (Auto) % Lymph % (Auto) % [facility] % (Auto) % Eos % (Auto) % Baso % (Auto) % Neut # (Auto) (1.40-6.50) K/uL Lymph # (Auto) (1.2-3.4) K/uL [facility] # (Auto) (0.11-0.59) K/uL Eos # (Auto) (0-0.50) K/uL Baso # (Auto) (0-0.2) K/uL Immature Gran # (Auto) (0.01-0.20) K/uL PT (9.0-12.0) Seconds INR (0.9-1.1) APTT (21.0-31.0) Seconds PTT Ratio POC pH 7.21 L (7.35-7.45) POC pCO2 43 (35-46) mmHg POC pO2 109 H (80-95) mmHg POC HCO3 17 L (19-24) sean/L POC Base Excess -11.0 L (-9-1.8) sean/L POC ABG O2 Sat 97.0 H (90-95) % VBG pH (7.36-7.41) VBG pCO2 (38-50) mmHg VBG pO2 mmHg VBG HCO3 mmol/L VBG O2 Saturation % VBG Base Excess mEq/L POC Sodium 125 L (135-144) mmol/L Sodium (136-145) mmol/L POC Potassium 4.9 (3.3-5.0) mmol/L Potassium (3.5-5.1) mmol/L POC Chloride (101-112) mmol/L Chloride (98-107) mmol/L Carbon Dioxide (21-32) mmol/L POC Total CO2 18 L (24-31) mmol/L Anion Gap (3-11) POC Anion Gap (16-25) mmol/L POC BUN (7-18) mg/dl BUN (6-23) mg/dl Creatinine (0.6-1.2) mg/dl POC Creatinine (0.6-1.3) mg/dl Est Cr Clr Drug Dosing Est GFR ( Amer) ml/min Est GFR (Non-Af Amer) ml/min BUN/Creatinine Ratio (10-20) Glucose (70-99(Fasting)) mg/dl POC Glucose 425 H* (70-99) mg/dl POC Glucose (other) (70-99) mg/dl Lactate (0.4-2.0) mmol/L Calcium (8.6-10.3) mg/dl POC Ioniz Calcium Kwaku (1.12-1.32) mmol/l Total Bilirubin (0.2-1.0) mg/dl AST (13-39) U/L ALT (7-52) U/L Alkaline Phosphatase (34-104) U/L Total Creatine Kinase (26-192) U/L Troponin I High Sens (0-14) pg/ml Total Protein (6.0-8.3) gm/dl Albumin (3.4-5.0) gm/dl Globulin (2.5-4.0) gm/dl Albumin/Globulin Ratio (0.9-2) Procalcitonin (0-0.5) ng/ml Nasal Screen MRSA (PCR) Negative (Negative) SARS-CoV-2 (PCR) (Negative) Influenza Type A (PCR) (Neg) Influenza Type B (PCR) (Neg) RSV (RT-PCR) (Neg) Administered Medications Albuterol (Albut/Ipratrop 3mg/0.5mg Neb 3 Ml Vial) 3 ml NEB Q4R [facility]; Protocol Stop: 10/09/22 06:59 Last Admin: 09/09/22 14:43 Dose: 3 ml Documented By: Admin: 09/09/22 10:58 Dose: 3 ml Documented By: Admin: 09/09/22 07:22 Dose: 3 ml Documented By: SUSAN Amlodipine Besylate (Amlodipine Besylate 5 Mg Tab) 5 mg PO [facility] Stop: 10/09/22 08:59 Last Admin: 09/09/22 08:34 Dose: 5 mg Documented By: EDDY Aspirin (Aspirin 81 Mg Chew) 81 mg PO DAILY [facility] Stop: 10/09/22 09:59 Last Admin: 09/09/22 10:57 Dose: 81 mg Documented By: EDDY Atorvastatin Calcium (Atorvastatin 40 Mg Tab) 40 mg PO [facility] Stop: 10/09/22 08:59 Last Admin: 09/09/22 08:34 Dose: 40 mg Documented By: EDDY Heparin Sodium (Porcine) (Heparin Sod 5,000 Unit/0.5 Ml Vial) 5,000 units SQ Q12 [facility] Stop: 10/09/22 08:59 Last Admin: 09/09/22 08:34 Dose: 5,000 units Documented By: EDDY Fentanyl Citrate (Fentanyl Citrate) 2,500 mcg in 250 mls @ 0 mls/hr IV .Q0M [facility]; Protocol Stop: 09/23/22 00:29 Last Titration: 09/09/22 07:07 Dose: 0 mcg/hr, 0 mls/hr Documented By: EDDY Co-signed By: AUNDREA Titration: 09/09/22 04:00 Dose: 0 mcg/hr, 0 mls/hr Documented By: AUNDREA Co-signed By: SOPHY Admin: 09/09/22 01:00 Dose: 25 mcg/hr, 2.5 mls/hr Documented By: JUDAH Co-signed By: DEREK Azithromycin 500 mg/ Dextrose 255 mls @ 125 mls/hr IV Q24H [facility] Stop: 09/16/22 02:59 Last Infusion: 09/09/22 05:39 Dose: 0 mls/hr Documented By: Admin: 09/09/22 03:28 Dose: 125 mls/hr Documented By: AUNDREA Ceftriaxone Sodium 2,000 mg/ (Dextrose) 70 mls @ 100 mls/hr IV Q24H [facility]; P rotocol Stop: 09/16/22 02:59 Last Infusion: 09/09/22 04:18 Dose: 0 mls/hr Documented By: Admin: 09/09/22 03:30 Dose: 100 mls/hr Documented By: AUNDREA Propofol (Diprivan) 1,000 mg in 100 mls @ 5.418 mls/hr IV .[id number] [facility]; Protocol Stop: 09/12/22 05:59 Last Titration: 09/09/22 11:49 Dose: 15 mcg/kg/min, 5.4 mls/hr Documented By: Titration: 09/09/22 07:07 Dose: 10 mcg/kg/min, 3.6 mls/hr Documented By: EDDY Co-signed By: AUNDREA Admin: 09/09/22 05:54 Dose: 10 mcg/kg/min, 3.6 mls/hr Documented By: AUNDREA Co-signed By: SOPHY Famotidine 20 mg/ Syringe 5 mls @ 2.5 mls/min IV DAILY [facility] Stop: 10/09/22 09:59 Last Admin: 09/09/22 10:56 Dose: 2.5 mls/min Documented By: EDDY Sodium Bicarbonate 150 meq/ (Sterile Water) 1,150 mls @ 100 mls/hr IV .[id number] [facility] Stop: 10/09/22 16:44 Last Admin: 09/09/22 18:15 Dose: 100 mls/hr Insulin Aspart (Insulin Aspart Per Unit Charge) 0 units SC Q4 [facility] Stop: 10/09/22 12:04 Last Admin: 09/09/22 15:38 Dose: Not Given Documented By: Admin: 09/09/22 12:07 Dose: 1 units Documented By: EDDY Co-signed By: CB Propofol (Propofol Bolus From Bag) 20 mg IV Q5M PRN PRN Reason: Sedation Stop: 09/12/22 05:46 Last Admin: 09/09/22 05:55 Dose: 20 mg Documented By: AUNDREA Co-signed By: TP Discontinued Medications Albuterol (Albut/Ipratrop 3mg/0.5mg Neb 3 Ml Vial) 12 ml INH ONE STA Stop: 09/08/22 21:44 Last Admin: 09/08/22 21:49 Dose: 12 ml Documented By: JHOAN Albuterol (Albuterol 0.083% Nebu Soln 3 Ml Vial) 10 mg NEB NOW STA; Protocol Stop: 09/08/22 22:43 Last Admin: 09/08/22 23:13 Dose: 10 mg Documented By: EMJamal Albuterol (Albut/Ipratrop 3mg/0.5mg Neb 3 Ml Vial) 3 ml NEB NOW STA; Protocol Stop: 09/09/22 04:54 Last Admin: 09/09/22 05:23 Dose: 3 ml Documented By: JHOAN Aspirin (Aspirin 81 Mg Ectab) 81 mg PO DAILY [facility] Stop: 10/09/22 08:59 Last Admin: 09/09/22 08:31 Dose: Not Given Documented By: EDDY Dextrose (Dextrose 50% 50 Ml Syringe) 50 ml IV NOW ONE Stop: 09/08/22 23:31 Last Admin: 09/09/22 00:03 Dose: 50 ml Documented By: JUDAH Dextrose (Dextrose 50% 50 Ml Syringe) 50 ml IV NOW ONE Stop: 09/08/22 23:33 Last Admin: 09/09/22 00:05 Dose: 50 ml Documented By: JUDAH Etomidate (Etomidate 2 Mg/Ml 20 Ml Vial) 15 mg IV NOW ONE Stop: 09/09/22 00:25 Last Admin: 09/09/22 00:37 Dose: 15 mg Documented By: DEREK Magnesium Sulfate/Dextrose (Magnesium Sulfate / D5w) 1 gm in 100 mls @ 100 mls/hr IV Q1H [facility] Stop: 09/08/22 23:44 Last Infusion: 09/08/22 23:30 Dose: 0 mls/hr Documented By: Admin: 09/08/22 22:30 Dose: 100 mls/hr Documented By: Infusion: 09/08/22 22:30 Dose: 100 mls/hr Documented By: Admin: 09/08/22 21:53 Dose: 100 mls/hr Documented By: JUDAH Sodium Chloride (Nss) 500 mls @ 999 mls/hr IV .Q31M [facility] Stop: 09/08/22 22:13 Last Infusion: 09/08/22 23:21 Dose: 0 mls/hr Documented By: Admin: 09/08/22 21:53 Dose: 999 mls/hr Documented By: JUDAH Piperacillin Sod/Tazobactam Sod (Zosyn) 4.5 gm in 120 mls @ 240 mls/hr IV NOW ONE Stop: 09/08/22 22:55 Last Infusion: 09/09/22 01:02 Dose: 0 mls/hr Documented By: Admin: 09/08/22 23:39 Dose: 240 mls/hr Documented By: JDUAH Sodium Chloride (Nss 1000ml) 1,000 mls @ 999 mls/hr IV .Q1H1M ONE Stop: 09/08/22 23:42 Last Infusion: 09/09/22 01:02 Dose: 0 mls/hr Documented By: Admin: 09/08/22 23:10 Dose: 999 mls/hr Documented By: JUDAH Calcium Gluconate () 1,000 mg in 60 mls @ 240 mls/hr IV NOW STA Stop: 09/08/22 22:56 Last Infusion: 09/08/22 23:26 Dose: 0 mls/hr Documented By: Admin: 09/08/22 23:11 Dose: 240 mls/hr Documented By: JUDAH Sodium Bicarbonate 150 meq/ (Dextrose) 1,150 mls @ 150 mls/hr IV .Q7H40M [facility] Stop: 10/08/22 22:59 Last Infusion: 09/09/22 04:19 Dose: 0 mls/hr Documented By: Admin: 09/09/22 00:20 Dose: 150 mls/hr Documented By: JUDAH Famotidine (Pepcid 20mg Iv Push) 20 mg in 5 mls @ 2.5 mls/min IV NOW STA Stop: 09/09/22 00:09 Last Admin: 09/09/22 00:19 Dose: 2.5 mls/min Documented By: JUDAH Propofol (Diprivan) 1,000 mg in 100 mls @ 0 mls/hr IV .Q0M [facility]; Protocol Stop: 09/09/22 00:53 Last Titration: 09/09/22 05:56 Dose: 0 mcg/kg/min, 0 mls/hr Documented By: Titration: 09/09/22 04:00 Dose: 0 mcg/kg/min, 0 mls/hr Documented By: Admin: 09/09/22 01:00 Dose: 20 mcg/kg/min, 6.1 mls/hr Documented By: JUDAH Co-signed By: DEREK Methylprednisolone 80 mg/ (Syringe) 1.28 mls @ 1.5 mls/min IV Q8H [facility] Stop: 10/09/22 03:59 Last Admin: 09/09/22 04:19 Dose: 1.5 mls/min Documented By: AUNDREA Sodium Chloride (Nss 1000ml) 1,000 mls @ 125 mls/hr IV .Q8H [facility] Stop: 10/09/22 03:59 Last Infusion: 09/09/22 10:50 Dose: 0 mls/hr Documented By: Admin: 09/09/22 04:19 Dose: 125 mls/hr Documented By: AUNDREA Sodium Chloride (Nss 1000ml) 500 mls @ 999 mls/hr IV .Q31M ONE Stop: 09/09/22 06:07 Last Infusion: 09/09/22 06:29 Dose: 0 mls/hr Documented By: Admin: 09/09/22 05:43 Dose: 999 mls/hr Documented By: AUNDREA Insulin Human Regular 250 (units/ Sodium Chloride) 250 mls @ 6 mls/hr IV .Q24H [facility]; Protocol Stop: 10/09/22 09:29 Last Admin: 09/09/22 12:20 Dose: Not Given Documented By: EDDY Co-signed By: ANASTASIIA Sodium Chloride (Nss 1000ml) 1,000 mls @ 100 mls/hr IV .Q10H [facility] Stop: 10/09/22 09:29 Last Infusion: 09/09/22 13:22 Dose: 0 mls/hr Documented By: Admin: 09/09/22 10:51 Dose: 100 mls/hr Documented By: EDDY Calcium Gluconate 2,000 mg/ (Dextrose) 70 mls @ 240 mls/hr IV NOW ONE Stop: 09/09/22 13:41 Last Infusion: 09/09/22 14:22 Dose: 0 mls/hr Documented By: Admin: 09/09/22 13:59 Dose: 240 mls/hr Documented By: EDDY Insulin Aspart (Insulin Aspart Per Unit Charge) 0 units SC Q4 [facility]; Protocol Stop: 10/09/22 07:29 Last Admin: 09/09/22 08:36 Dose: 7 units Documented By: EDDY Co-signed By: ANASTASIIA Insulin Glargine (Lantus Per Unit Charge) 20 units SC ONE ONE Stop: 09/09/22 05:31 Last Admin: 09/09/22 05:29 Dose: 20 units Documented By: AUNDREA Co-signed By: SOPHY Insulin Human Regular (Novolin-R Insulin Per Unit Charge) 10 units IV NOW STA Stop: 09/08/22 23:31 Last Admin: 09/09/22 00:03 Dose: 10 units Documented By: JUDAH Co-signed By: ADORE Labetalol HCl (Labetalol Hcl Iv 5 Mg/Ml 20ml) 10 mg IV NOW STA Stop: 09/09/22 05:48 Last Admin: 09/09/22 05:54 Dose: 10 mg Documented By: AUNDREA Co-signed By: SOPHY Labetalol HCl (Labetalol Hcl Iv 5 Mg/Ml 20ml) Confirm Administered Dose 5 mg IV .STK-MED ONE Stop: 09/09/22 05:49 Last Admin: 09/09/22 05:54 Dose: Not Given Documented By: AUNDREA Methylprednisolone (Methylprednisolone 125 Mg/2 Ml Vial) 125 mg IV NOW STA Stop: 09/08/22 21:44 Last Admin: 09/08/22 21:53 Dose: 125 mg Documented By: JUDAH Carlin (Stat Iv) 1 each N/A NOW STA Stop: 09/08/22 22:58 Last Admin: 09/09/22 01:02 Dose: Not Given Documented By: JUDAH Carlin (Stat Iv Infusion Titration Per Protocol) 1 each N/A NOW STA Stop: 09/09/22 00:26 Last Admin: 09/09/22 03:30 Dose: Not Given Documented By: AUNDREA Carlin (Rapid Sequence Induction Bag) Confirm Administered Dose 1 each N/A .STK-MED ONE Stop: 09/09/22 00:32 Last Admin: 09/09/22 03:30 Dose: Not Given Documented By: AUNDREA Morphine Sulfate (Morphine Sulfate 2 Mg/Ml Carp) 2 mg IV NOW STA Stop: 09/09/22 00:09 Last Admin: 09/09/22 00:19 Dose: 2 mg Documented By: JUDAH Ondansetron HCl (Ondansetron Inj 2 Mg/Ml 2 Ml Vial) 4 mg IV NOW STA Stop: 09/08/22 23:32 Last Admin: 09/08/22 23:35 Dose: 4 mg Documented By: JUDAH Propofol (Propofol Iv Emulsion 10 Mg/Ml 100 Ml Vial) Confirm Administered Dose 1,000 mg IV .STK-MED ONE Stop: 09/09/22 00:42 Last Admin: 09/09/22 00:47 Dose: 1,000 mg Documented By: DEREK Co-signed By: JUDAH Rocuronium [place] (Rocuronium [place] 10 Mg/Ml 5 Ml Vial) 75 mg IV ONCE STA Stop: 09/09/22 00:25 Last Admin: 09/09/22 00:38 Dose: 75 mg Documented By: DEREK Co-signed By: AKHIL Sodium Bicarbonate (Sodium Bicarb 8.4% Inj 50 Meq/50 Ml Syr) Confirm Administered Dose 50 meq IV .STK-MED ONE Stop: 09/09/22 00:33 Last Admin: 09/09/22 00:35 Dose: 50 meq Documented By: DEREK Sodium Bicarbonate (Sodium Bicarb 8.4% Inj 50 Meq/50 Ml Syr) 50 meq IV NOW STA Stop: 09/09/22 01:04 Last Admin: 09/09/22 01:12 Dose: 50 meq Documented By: JUDAH Sodium Bicarbonate (Sodium Bicarb 8.4% Inj 50 Meq/50 Ml Syr) 50 meq IV NOW STA Stop: 09/09/22 01:04 Last Admin: 09/09/22 01:11 Dose: Not Given Documented By: JUDAH Imaging Data Radiologist's Impression: Chest X-Ray 09/08/22 21:43 SINGLE VIEW CHEST CLINICAL HISTORY: Dyspnea FINDINGS: An AP, portable, upright chest radiograph is compared to study dated 03/07/2022 and correlated with chest CT dated 03/09/2022. The examination is degraded by portable technique and patient rotation. The heart is enlarged noting atherosclerotic calcification of the thoracic aorta. There is pulmonary vascular congestion. Chronic interstitial thickening is similar to previous. There is diffuse subpleural reticulation. Airspace opacities are present at both lung bases. There are small pleural effusions. No pneumothorax is seen. The skeletal structures are osteopenic. The bony thorax is grossly intact. IMPRESSION: 1. Cardiomegaly with pulmonary vascular congestion. 2. Bibasilar airspace opacities could represent scarring/atelectasis versus a developing pneumonitis. Correlate clinically. 3. Small pleural effusions. 4. Chronic interstitial change is similar to previous. ACT 112: Negative or not required by law. Electronically signed by: Edward Rossi M.D. 09/09/2022 7:10 AM Chest X-Ray 09/09/22 00:25 SINGLE VIEW CHEST CLINICAL HISTORY: Respiratory failure. Intubation. FINDINGS: An AP, portable, supine chest radiograph is compared to study dated 09/08/2022 and correlated with chest CT dated 03/09/2022. The examination is degraded by portable technique and patient rotation. An endotracheal tube has been placed. The tip projects 4.5 cm above the codi. The heart is enlarged noting atherosclerotic calcification of the thoracic aorta. There is pulmonary vascular congestion. Chronic interstitial thickening is similar to previous. There is diffuse subpleural reticulation. Airspace opacities are present at both lung bases. There are small pleural effusions. No pneumothorax is seen. The skeletal structures are osteopenic. The bony thorax is grossly intact. IMPRESSION: 1. An endotracheal tube has been placed as above. 2. Cardiomegaly with evidence of congestive failure. 3. Small pleural effusions. 4. Bibasilar opacities are unchanged. ACT 112: Negative or not required by law. Electronically signed by: Edward Rossi M.D. 09/09/2022 7:20 AM Chest X-Ray 09/08/22 21:43 SINGLE VIEW CHEST CLINICAL HISTORY: Dyspnea FINDINGS: An AP, portable, upright chest radiograph is compared to study dated 03/07/2022 and correlated with chest CT dated 03/09/2022. The examination is degraded by portable technique and patient rotation. The heart is enlarged noting atherosclerotic calcification of the thoracic aorta. There is pulmonary vascular congestion. Chronic interstitial thickening is similar to previous. There is diffuse subpleural reticulation. Airspace opacities are present at both lung bases. There are small pleural effusions. No pneumothorax is seen. The skeletal structures are osteopenic. The bony thorax is grossly intact. IMPRESSION: 1. Cardiomegaly with pulmonary vascular congestion. 2. Bibasilar airspace opacities could represent scarring/atelectasis versus a developing pneumonitis. Correlate clinically. 3. Small pleural effusions. 4. Chronic interstitial change is similar to previous. ACT 112: Negative or not required by law. Electronically signed by: Edward Rossi M.D. 09/09/2022 7:10 AM Abdomen/Pelvis CT 09/08/22 22:46 Exam(s): CT ABDOMEN + PELVIS Without Contrast EXAM: CT Abdomen and Pelvis Without Intravenous Contrast CLINICAL HISTORY: Reason for exam: ARF, diarrhea. TECHNIQUE: Axial computed tomography images of the abdomen and pelvis without intravenous contrast. CTDI is 14.7 mGy and DLP is 664.52 mGy-cm. Automated exposure control was utilized for the study. A dose lowering technique was utilized adhering to the principles of ALARA. COMPARISON: No relevant prior studies available. FINDINGS: Lung bases: Unremarkable. No mass. No consolidation. Pleural space: bilateral pleural effusions. Heart: Mitral and aortic valvular calcifications. ABDOMEN: Liver: Unremarkable. Gallbladder and bile ducts: Unremarkable. No calcified stones. No ductal dilation. Pancreas: Unremarkable. No ductal dilation. Spleen: Unremarkable. No splenomegaly. Adrenals: Unremarkable. No mass. Kidneys and ureters: Right kidney is atrophic this has progressed since 11/16/2013. No obstructing stones. No hydronephrosis. Stomach and bowel: Diverticulosis without evidence of diverticulitis. No obstruction. PELVIS: Appendix: No findings to suggest acute appendicitis. Bladder: Unremarkable. No stones. Reproductive: Uterus is surgically absent. ABDOMEN and PELVIS: Intraperitoneal space: Unremarkable. No free air. No significant fluid collection. Bones/joints: No acute fracture. No dislocation. Soft tissues: Unremarkable. Vasculature: Dense vascular calcifications of the aorta. Lymph nodes: Unremarkable. No enlarged lymph nodes. IMPRESSION: Bilateral pleural effusions with associated compressive atelectasis Cardiomegaly with mitral and aortic valvular calcifications Diverticulosis without evidence of diverticulitis Electronically signed by: Jaden Orantes MD 09/09/22 00:12 AM Chest X-Ray 09/09/22 00:25 SINGLE VIEW CHEST CLINICAL HISTORY: Respiratory failure. Intubation. FINDINGS: An AP, portable, supine chest radiograph is compared to study dated 09/08/2022 and correlated with chest CT dated 03/09/2022. The examination is degraded by portable technique and patient rotation. An endotracheal tube has been placed. The tip projects 4.5 cm above the codi. The heart is enlarged n oting atherosclerotic calcification of the thoracic aorta. There is pulmonary vascular congestion. Chronic interstitial thickening is similar to previous. There is diffuse subpleural reticulation. Airspace opacities are present at both lung bases. There are small pleural effusions. No pneumothorax is seen. The skeletal structures are osteopenic. The bony thorax is grossly intact. IMPRESSION: 1. An endotracheal tube has been placed as above. 2. Cardiomegaly with evidence of congestive failure. 3. Small pleural effusions. 4. Bibasilar opacities are unchanged. ACT 112: Negative or not required by law. Electronically signed by: Edward Rossi M.D. 09/09/2022 7:20 AM Discharge Plan Visit Data Chief Complaint: Shortness of Breath/Dyspnea Stated Complaint: TROUBLE BREATHING,ABD PAIN ED Provider: Tyrell Tejeda Discharge Problem: Acute hypoxemic respiratory failure, Elevated troponin, Acute renal failure, Hyperkalemia, Respiratory acidosis with metabolic acidosis, Endotracheally intubated, Acute exacerbation of chronic obstructive pulmonary disease Patient Disposition: Admitted As Inpatient Discharge Instructions Interventions: ED Discharge Assessment Last Done: 09/09/22 02:08
[2022-09-08 22:27] LABS: Alanine Aminotransferase 63 U/L (7-52); Albumin Globulin Ratio 1.1 (0.9-2); Albumin Level 3.6 gm/dl (3.4-5.0); Alkaline Phosphatase 91 U/L (34-104); Anion Gap 17 (3-11); Aspartate Aminotransferase 49 U/L (13-39); BUN Creatinine Ratio 15.4 (10-20); Bilirubin,Total 0.5 mg/dl (0.2-1.0); Blood Urea Nitrogen 112 mg/dl (6-23); Calcium 8.3 mg/dl (8.6-10.3); Carbon Dioxide 16 mmol/L (21-32); Chloride 92 mmol/L (98-107); Est GFR (African American) 5.7 ml/min; Est GFR (Non-African American) 4.9 ml/min; Globulin 3.4 gm/dl (2.5-4.0); Glucose 123 mg/dl (70-99(Fasting)); Potassium 6.4 mmol/L (3.5-5.1); Sodium 125 mmol/L (136-145); Troponin I High Sensitivity 67.1 pg/ml (0-14)
[2022-09-08 22:30] LABS: Partial Thromboplastin Ratio 0.9; Partial Thromboplastin Time 25.3 Seconds (21.0-31.0); Prothrombin Time 11.2 Seconds (9.0-12.0)
[2022-09-08 22:34] LABS: Influenza A virus by PCR Negative (Neg); Influenza B virus by PCR Negative (Neg); RSV by PCR Negative (Neg); SARS CoV2 RNA(COVID-19) Ceph NEGATIVE (Negative)
[2022-09-08] MEDS ORDERED: ALBUTEROL 0.083% NEBU SOLN 3 ML VIAL NEB STA (22:42)
[2022-09-08] MEDS ORDERED: SODIUM CHLORIDE 0.9% 1000ML 1,000 ML IV ONE (22:42)
[2022-09-08] MEDS ORDERED: CALCIUM GLUCONATE 1,000 MG/60 ML BAG IV STA (22:42)
[2022-09-08] MEDS ORDERED: STAT IV STA (22:57)
[2022-09-08] MEDS ORDERED: SODIUM BICARBONATE 8.4% 150 MEQ in DEXTROSE 5% 1,000 ML IV SCH (23:00)
[2022-09-08 23:05] LABS: Base Excess VBG -8.8 mEq/L; HCO3 VBG 19 mmol/L; Oxygen Saturation VBG 72.1 %; PCO2 VBG 46 mmHg (38-50); PO2 VBG 45 mmHg; pH VBG 7.22 (7.36-7.41)
[2022-09-08 23:06] LABS: iSTAT Creatinine 8.2 mg/dl (0.6-1.3); iSTAT Hemoglobin 12.2 g/dl (12.0-16.0); iSTAT Ionized Calcium 1.02 mmol/l (1.12-1.32); iSTAT Potassium 6.7 mmol/L (3.3-5.0)
[2022-09-08 23:29] LABS: Anion Gap 14 (3-11); BUN Creatinine Ratio 15.3 (10-20); Blood Urea Nitrogen 110 mg/dl (6-23); Carbon Dioxide 18 mmol/L (21-32); Chloride 93 mmol/L (98-107); Creatine Kinase 147 U/L (26-192); Est GFR (African American) 5.7 ml/min; Est GFR (Non-African American) 4.9 ml/min; Glucose 148 mg/dl (70-99(Fasting)); Potassium 6.4 mmol/L (3.5-5.1); Sodium 125 mmol/L (136-145)
[2022-09-08] MEDS ORDERED: NovoLIN-R INSULIN PER UNIT CHARGE IV STA (23:30)
[2022-09-08] MEDS ORDERED: DEXTROSE 50% 50 ML SYRINGE IV ONE ×2 (23:30→23:32)
[2022-09-08] MEDS ORDERED: ONDANSETRON INJ 2 MG/ML 2 ML VIAL IV STA (23:31)
[2022-09-09] MEDS ORDERED: MoRPHine SULFATE 2 MG/ML CARP IV STA (00:08)
[2022-09-09] MEDS ORDERED: FAMOTIDINE 20MG IV PUSH 20 MG/5 ML SYR IV STA (00:08)
--- NOTE | 2022-09-09 00:12 | CT Scan Report ---
Exam(s): CT ABDOMEN + PELVIS Without Contrast EXAM: CT Abdomen and Pelvis Without Intravenous Contrast CLINICAL HISTORY: Reason for exam: ARF, diarrhea. TECHNIQUE: Axial computed tomography images of the abdomen and pelvis without intravenous contrast. CTDI is 14.7 mGy and DLP is 664.52 mGy-cm. Automated exposure control was utilized for the study. A dose lowering technique was utilized adhering to the principles of ALARA. COMPARISON: No relevant prior studies available. FINDINGS: Lung bases: Unremarkable. No mass. No consolidation. Pleural space: bilateral pleural effusions. Heart: Mitral and aortic valvular calcifications. ABDOMEN: Liver: Unremarkable. Gallbladder and bile ducts: Unremarkable. No calcified stones. No ductal dilation. Pancreas: Unremarkable. No ductal dilation. Spleen: Unremarkable. No splenomegaly. Adrenals: Unremarkable. No mass. Kidneys and ureters: Right kidney is atrophic this has progressed since 11/16/2013. No obstructing stones. No hydronephrosis. Stomach and bowel: Diverticulosis without evidence of diverticulitis. No obstruction. PELVIS: Appendix: No findings to suggest acute appendicitis. Bladder: Unremarkable. No stones. Reproductive: Uterus is surgically absent. ABDOMEN and PELVIS: Intraperitoneal space: Unremarkable. No free air. No significant fluid collection. Bones/joints: No acute fracture. No dislocation. Soft tissues: Unremarkable. Vasculature: Dense vascular calcifications of the aorta. Lymph nodes: Unremarkable. No enlarged lymph nodes. IMPRESSION: Bilateral pleural effusions with associated compressive atelectasis Cardiomegaly with mitral and aortic valvular calcifications Diverticulosis without evidence of diverticulitis Electronically signed by: Jaden Orantes MD 09/09/22 00:12 AM
[2022-09-09] MEDS ORDERED: ROCURONIUM BROMIDE 10 MG/ML 5 ML VIAL IV STA (00:24)
[2022-09-09] MEDS ORDERED: ETOMIDATE 2 MG/ML 20 ML VIAL IV ONE ×2 (00:24→02:39)
[2022-09-09] MEDS ORDERED: PROPOFOL BOLUS FROM BAG IV PRN (00:25)
[2022-09-09] MEDS ORDERED: fentaNYL BOLUS from BAG IV PRN (00:25)
[2022-09-09] MEDS ORDERED: STAT IV Infusion **Titration per Protocol STA ×3 (00:25→09:27)
[2022-09-09] MEDS ORDERED: fentaNYL citrate 2,500 MCG/250 ML BAG IV SCH (00:30)
[2022-09-09] MEDS ORDERED: propofoL 1,000 MG/100 ML VIAL IV SCH (00:30)
[2022-09-09] MEDS ORDERED: RAPID SEQUENCE INDUCTION BAG ONE (00:31)
[2022-09-09] MEDS ORDERED: SODIUM BICARB 8.4% INJ 50 MEQ/50 ML SYR IV ONE (00:32)
[2022-09-09] MEDS ORDERED: PROPOFOL IV EMULSION 10 MG/ML 100 ML VIAL IV ONE (00:41)
[2022-09-09] MEDS ORDERED: propofoL 1,000 MG/100 ML VIAL IV STA (00:52)
[2022-09-09] MEDS ORDERED: SODIUM BICARB 8.4% INJ 50 MEQ/50 ML SYR IV STA ×2 (01:03)
[2022-09-09 01:13] LABS: Appearance Urine Cloudy (Clear); Bacteria Urine Automated Negative (Negative); Bilirubin Urine Negative (Negative); Blood Urine 3+ (Negative); Color Urine Yellow; Epithelial Cell Urine Auto >30 /lpf (0-5); Glucose Urine UA Negative (Negative); Ketones Urine Negative (Negative); Leukocyte Esterase Urine Trace (Negative); Nitrite Urine Negative (Negative); Protein Urine 3+ (Negative); RBC Urine Automated 0-4 /hpf (0-4); Specific Gravity Urine 1.015 (1.000-1.030); Urobilinogen Urine Negative (Negative); pH Urine 5.5 (4.5-7.5)
[2022-09-09 01:18] LABS: iSTAT Arterial Blood Gas HCO3 17 meg/L (19-24); iSTAT Arterial Blood Gas pCO2 43 mmHg (35-46); iSTAT Arterial Blood Gas pH 7.21 (7.35-7.45); iSTAT Arterial Blood Gas pO2 109 mmHg (80-95); iSTAT Carbon Dioxide 18 mmol/L (24-31); iSTAT Hematocrit 29 % (37-47); iSTAT Hemoglobin 9.9 g/dl (12.0-16.0); iSTAT Potassium 4.9 mmol/L (3.3-5.0); iSTAT Sodium 125 mmol/L (135-144)
--- NOTE | 2022-09-09 01:45 | History & Physical Report ---
Date of Service September 09, 2022 Assessment & Plan (1) Acute hypoxemic respiratory failure: Plan: Patient is a 77-year-old female with a past medical history of PAD, COPD, generalized weakness, low back pain, current tobacco use, hypertension, and hyperlipidemia who presents to the emergency department for evaluation of dyspnea. Pt is currently intubated and sedated. Hemodynamically stable. Pt transferred to the ICU for critical care and management. -Admit to ICU with critical care consultation, appreciate recs and treatment -Currently intubated and sedated -Unsure of etiology, seems to have hx COPD, could be secondary to exacerbation -Sequentially followed by vomiting in Bipap mask adding aspiration to the picture -Management per classified ad taker. (2) COPD (chronic obstructive pulmonary disease): Plan: -Typically on ipratropium bromide qid at home, albuterol prn -Intubated as above, management per classified ad taker (3) Respiratory acidosis with metabolic acidosis: Plan: -Secondary to respiratory failure and N/V -received bicarb in ED -intubation and mechanical ventilation as above (4) Elevated troponin: Plan: -Likely secondary to demand ischemia due to recent critical illness -Continue to trend to peak (5) Acute renal failure: Plan: -Unsure of etiology at this time -Consult nephrology to eval for need for dialysis, appreciate recs -electrolyte management per ICU protocol (6) Hyperkalemia: Plan: -admitted to hospital with K of 6.4 -secondary to acute renal failure as above -received insulin and dextrose in ED -Continue upon transfer (7) Hypertension: Plan: -Typically on Amlodipine, lisinopril, and metoprolol -hold while NPO (8) Hyperlipidemia: Plan: -Typically on atorvastatin -Hold while NPO (9) PAD (peripheral artery disease): Plan: -On aspirin at home -Hold while NPO (10) Endotracheally intubated: Plan: Noted, management per ICU (11) Transaminitis: Plan: -Likely due vomiting -Continue to trend Plan Diet: NPO, fluids per ICU DVT Prophy: Heparin Dispo: Admit to ICU with classified ad taker management Code Status: Full as determined by family in ED History of Present Illness Chief Complaint: Dyspnea Primary Care Provider: Marissa Leon MD Patient is a 77-year-old female with a past medical history of PAD, COPD, generalized weakness, low back pain, current tobacco use, hypertension, and hyperlipidemia who presents to the emergency department for evaluation of dyspnea. No meaningful HPI gathered at this time as the patient is currently intubated and sedated. Entirety of HPI is gathered from ED provider. Patient came in short of breath and was brought back to the emergency department patient was initially placed on BiPAP. Patient was to have CT imaging of the abdomen and after returning from imaging, patient placed back on BiPAP and patient proceeded to vomit in the mask and was sequentially intubated due to impending respiratory failure. It is at this time that the classified ad taker was consulted for evaluation and management. Allergies Allergy/AdvReac Type Severity Reaction Status Date / Time No Known Allergies Allergy Verified 09/08/22 21:57 Home Medications Medication Instructions Recorded Confirmed Type acetaminophen 500 mg tablet 500 mg PO Q6H PRN Pain 08/04/19 09/08/22 History (Tylenol Extra Strength) albuterol sulfate 90 mcg/actuation 2 puff inhalation QID PRN 03/02/22 09/08/22 Rx aerosol inhaler shortness of breath or wheezing #6.7 grams ipratropium bromide 17 2 puff inhalation QID PRN 03/02/22 09/08/22 Rx mcg/actuation HFA aerosol inhaler shortness of breath or wheezing #12.9 grams atorvastatin 40 mg tablet 40 mg PO QAM 30 days #30 tabs 03/31/22 09/08/22 Rx lisinopril 10 mg tablet 30 mg PO HS #90 tabs 03/31/22 09/08/22 Rx amlodipine 5 mg tablet (Norvasc) 5 mg PO QAM 30 days #30 tabs 04/02/22 09/08/22 Rx metoprolol succinate 50 mg 100 mg PO HS 30 days #60 tabs 04/02/22 09/08/22 Rx tablet,extended release 24 hr escitalopram oxalate 5 mg tablet 5 mg PO DAILY #30 tabs 08/28/22 09/08/22 Rx (Lexapro) aspirin 81 mg tablet,delayed 81 mg PO DAILY 09/08/22 09/08/22 History release Past Med/Surg History Medical History (Updated 09/09/22 @ 18:45 by Magdy Galeano MD) Advanced care planning/counseling discussion Anxiety Aortic stenosis Dyspnea and respiratory abnormalities Fracture of distal end of right radius with malunion History of anxiety Hyperlipidemia Hypertension Osteoarthritis PAD (peripheral artery disease) Palliative care by specialist Radius fracture RT Surgical History H/O carotid endarterectomy LEFT H/O wrist surgery RT 40 YRS AGO H/O: hysterectomy History of cataract surgery RT/LEFT History of colonoscopy History of surgery on right wrist Right Distal Radius Open Reduction Internal Fixation History of tooth extraction Family History Brother Family history of diabetes mellitus Social History Smoking Status: Former smoker Age Started Using Tobacco: 13; Age Quit Using Tobacco: 77; Cigarettes Per Day: 10; Second Hand Exposure: No; Do You Dip or Chew Tobacco: No; Hx Alcohol Use: No Hx Substance Use: No Preferred Language: Cypriot Communication Ability: Unable Hearing Ability: Use of 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 Beliefs That Will Affect Care: None marital status: Current Living Situation: Family current occupational status: retired How many Children do You have: 4 Feels Safe at Home: Yes Childhood Exposure to Second-Hand Smoke: Yes Diet: regular Dental Care, Regularly: Yes Physical Activity Frequency: 1-2 Times per Week Seatbelt Use: sometimes Sunscreen Use: No Assistive Devices: Cane Review of Systems Review of Systems: All systems reviewed & are unremarkable except as noted in HPI & below Physical Exam Constitutional: well nourished and + mechanically ventilated Eyes: + anicteric sclerae Neck: normal visual inspection Respiratory: Intubated and mechanically ventilated Cardiovascular: Rate/Rhythm: regular rate and regular rhythm Extremities: no edema Gastrointestinal (Abdomen): normal bowel sounds, soft, nontender, no hepatosplenomegaly Musculoskeletal: Head/Neck/Chest: normocephalic and head atraumatic Skin: no rashes, warm and dry Neurologic: Sedated Results & Data Results & Data Vital Signs (Past 12 Hours) Vital Signs Temp Pulse Pulse Resp BP Pulse Ox O2 Del Method 09/09/22 01:15 110 H 26 H 180/78 H 100 Mechanical Vent 09/09/22 01:01 99 H 26 H 156/93 H 99 Mechanical Vent 09/09/22 00:45 101 H 23 131/62 09/09/22 00:39 120 H 38 H 110/82 09/09/22 00:15 83 24 174/98 H 100 BiPAP 09/09/22 00:00 78 28 H 174/99 H 93 Oxymask 09/08/22 23:30 92 Nasal Cannula 09/08/22 23:15 76 19 100 BiPAP 09/08/22 23:00 72 20 100 BiPAP 09/08/22 22:45 72 20 168/105 H 100 BiPAP 09/09/22 00:06 79 30 H 94 09/08/22 23:13 74 28 H 100 BiPAP 09/08/22 22:30 67 26 H 185/88 H 100 BiPAP, Nebulizer 09/08/22 22:15 65 28 H 177/86 H 100 BiPAP, Nebulizer 09/08/22 22:00 66 23 166/95 H 100 BiPAP, Nebulizer 09/08/22 21:45 64 26 H 168/70 H 92 Room Air 09/08/22 21:54 68 29 H 94 09/08/22 21:50 72 31 H 30 L BiPAP 09/08/22 22:00 100 BiPAP 09/08/22 21:31 63 09/08/22 21:26 91 Room Air 09/08/22 20:57 Room Air 09/08/22 20:53 36.8 C 65 20 156/72 H 93 Room Air O2 Flow Rate FiO2 09/09/22 01:15 09/09/22 01:01 09/09/22 00:45 09/09/22 00:39 09/09/22 00:15 09/09/22 00:00 4 09/08/22 23:30 2 09/08/22 23:15 09/08/22 23:00 09/08/22 22:45 09/09/22 00:06 30 09/08/22 23:13 30 09/08/22 22:30 09/08/22 22:15 09/08/22 22:00 09/08/22 21:45 09/08/22 21:54 30 09/08/22 21:50 09/08/22 22:00 09/08/22 21:31 09/08/22 21:26 0 09/08/22 20:57 09/08/22 20:53 Code Status & VTE Plan VTE Prophylaxis Plan VTE Prophylaxis will be ordered: Yes Critical Care Time 50 minutes Supervising Physician Co-Signing Physician Notes Attending addendum: I have physically seen this patient, have supervised the medical residents activities, and agree with the H&P unless as otherwise noted. Assessment and Plan: Acute respiratory failure with hypoxia and hypercapnia- Patient intubated in the emergency department after failure of BiPAP due to associated vomiting and concerns regarding airway preservation Vancomycin IV and Zosyn IV for broad-spectrum antibiotic coverage Duonebs every 4 hours while awake and every 2 hours when necessary. Solu-Medrol IV Consult classified ad taker Mixed respiratory/metabolic acidosis- Continue bicarb drip as begun in ED Adjustment of ventilator pending Serial ABGs Elevated troponin- Troponin 67.1 Likely supply demand mismatch Check a 2D echocardiogram with Dopplers Acute renal failure- Creatinine 7.18 with baseline 0.95 IV fluids and bicarbonate drip as noted Follow laboratory serially Consult nephrology Remaining orders and notations as noted
[2022-09-09] MEDS ORDERED: ROCURONIUM BROMIDE 10 MG/ML 5 ML VIAL IV ONE (02:39)
[2022-09-09] MEDS: AZITHROMYCIN 500 MG in DEXTROSE 5% 250 ML IV SCH (03:28)
[2022-09-09] MEDS: cefTRIAXone SODIUM 2,000 MG in DEXTROSE 5% 50 ML IV SCH (03:30)
--- NOTE | 2022-09-09 03:37 | Procedure Note ---
Procedure Note Date of Service September 09, 2022 Note INTERNAL JUGULAR CENTRAL LINE PROCEDURE NOTE: Procedure: Internal Jugular Central Line Placement Attending: Dr. Seay Provider: CAITIE Walker Indication: Central Drug Administration, Poor Venous Access, Multiple Lab Draws Necessary Anesthesia: Lidocaine 1% Line placed emergently in the setting of acute respiratory failure requiring intubation, severe metabolic acidosis, and inability to obtain additional access A time-out was completed verifying correct patient, procedure, site, positioning, and implants(s) or special equipment if applicable. Patients Right Neck was cleansed and draped in the typical sterile fashion using Chloraprep. The Internal Jugular Vein and Carotid Artery were identified using ultrasound. The superficial tissue was anesthetized using 3 mL of 1% lidocaine without epinephrine under direct visualization with the ultrasound. After adequate anesthetization was achieved, the Right Internal Jugular vein was cannulated under direct ultrasound guidance using an introducer needle on a syringe. Good venous blood return was maintained prior to removal of syringe from introducer needle. Using Seldinger Technique, a guide wire was advanced through the introducer needle without resistance. The introducer needle was removed and ultrasound images were obtained of the guide wire within the Internal Jugular Vein and saved to the patients medical record. A small incision was made in penetrating fashion at the guide wire insertion site utilizing an 11 blade scalpel. The dilator was advanced to the vessel without resistance. The dilator was exchanged for the triple lumen catheter which was advanced into the vessel without resistance. The guide wire was removed intact from the catheter without issue. Claves were placed on each catheter tip with confirmation of good blood flow from each lumen. Each port was easily flushed with sterile saline. The catheter was placed at 16 cm and sutured in place. BioPatch was applied to the catheter and a sterile Tegaderm dressing was applied over the catheter with careful attention to sterility. Patient tolerated procedure well. No immediate complications were met. Post procedure x-ray was completed, placement was appropriate and no pneumothorax was noted. Procedural Ultrasound Guidance: Procedure Date: 09/09/2022 Indication: Central venous catheter insertion Attending: Dr. Seay Provider: CAITIE Walker Artery AND Vein visualized: Yes Compressible Vein: Yes Guidewire or Short Catheter seen in vein prior to dilation: Yes Line confirmed in Vein with ultrasound: Yes Coding CPT Codes Tubes, Drains, and Vasc Access - Tubes, Drains, and Vasc Access: [id number] Insertion Of Non-tunneled Catheter Age 5 Yrs> ([id number]) Tubes, Drains, and Vasc Access - Tubes, Drains, and Vasc Access: [id number] Ultrasound Guidance For Vascular ([id number]) [facility] [place]Charges[place] Tubes, Drains, and Vasc Access Procedure 1: Tubes, Drains, and Vasc Access: [id number] Insertion Of Non-tunneled Catheter Age 3 Yrs> Procedure 2: Tubes, Drains, and Vasc Access: [id number] Ultrasound Guidance For Vascular
--- NOTE | 2022-09-09 03:37 | Critical Care Consultation ---
Date of Consultation September 09, 2022 Assessment & Plan (1) Acute respiratory failure with hypoxia and hypercarbia: Reason Critically Ill: 77-year-old female with past medical history of COPD now presents to the ICU with mixed respiratory and metabolic acidosis and acute renal failure and respiratory failure with hypercapnia and hypoxia. Patient is now intubated and currently on bicarb drip. Neuro - Sedation: Propofol and fentanyl drips Cardiac - Elevated troponinlikely demand ischemia in the setting of hypoxia, patient also in renal failure which may be contributing. No ST elevation on EKG. Patient is currently normal sinus rhythm and hemodynamically stable. Continue to trend for now Aortic stenosisprior echo with moderate aortic stenosis and mild aortic regurg. Normal EF 55 to 60%. HTNcontinue amlodipine and metoprolol, hold lisinopril for acute renal failure. Respiratory - Acute hypoxic and hypercapnic respiratory failurepatient with history of COPD and continues to smoke daily. ABG with mixed respiratory and metabolic acidosis. Currently mechanically ventilated. - Will start on DuoNeb every 4. Patient did receive Solu-Medrol 125 mg in the ER. Will start on 80 mg every 8 hours - Unable to rule out underlying pneumonia at this time. Sputum culture pending. Continue with azithromycin and Rocephin. - Hold on Lasix as patient is currently in renal failure. Patient may require dialysis - Follow-up x-ray and ABG in a.m. - Continuous end-tidal CO2 and pulse ox monitoring GI - N.p.o. Diverticulosispatient with evidence of diverticulosis without diverticulitis on CT abdomen and pelvis. She did report several days of diarrhea when she was in the emergency department prior to intubation, her discussion with ER physician. Patient has not had diarrhea at this time. We will consider bio fire stool. Monitor for now RENAL/LYTES - Acute renal failuresuspect this is likely prerenal in the setting of diarrhea/hypovolemia. Initial creatinine in the ER 7.25 with previous baseline 0.95. BUN 112. pH 7.22. - Patient received 2 L crystalloid bolus in the ED and was started on bicarb drip. Now holding bicarb drip but continue with fluid resuscitation with NSS - Continue to trend BMPs and VBG's - Initial potassium of 6.4. Treated. Repeat pending - Maintain maps greater than 65. Avoid nephrotoxins and renally adjust medications. - Consult to nephrology. Expect patient would likely need dialysis. We will follow labs and urine output, and continue with medical management for now. - Foleystrict I's and O's ENDO - No history of diabetes or thyroid disease. ICU hyperglycemic protocol. HEME - H&H stable, monitor routine CBCs ID - Cannot rule out infectious process at this time. Patient does have leukocytosis but was also severely hydrated. She is afebrile. Pro-James and lactate are currently pending. Started on empiric ceftriaxone and azithromycin. Blood cultures and sputum culture pending. Urinalysis without concern for UTI. LINES/IV ACCESS - Right IJ CVL, DVT PROPHYLAXIS - SCDs, subcu heparin I have personally spent 65 minutes of critical care time in the direct management of this patient. This is a life/limb threatening event. This includes time spent evaluating patient, direct bedside care, chart review, placing orders, interpretation of diagnostic studies, discussion with consultants, patient, and family members, as well as other required patient management activities. This time is exclusive of all separately billable procedures, and teaching time and separate from and in addition to any other critical care service time. Thank you for allowing us to participate in the care of this patient. Please refer to my attending physician's documentation for any further recommendations. (2) Respiratory acidosis with metabolic acidosis: (3) Acute renal failure: (4) PAD (peripheral artery disease): (5) COPD (chronic obstructive pulmonary disease): (6) Generalized weakness: (7) Elevated troponin: (8) History of anxiety: (9) Tobacco use: (10) Hypertension: (11) Hyperlipidemia: (12) Hyperkalemia: (13) Endotracheally intubated: History of Present Illness Attending Physician: Loc Mata MD History of Present Illness Patient is a 77-year-old female with a past medical history of COPD, lower back pain, tobacco abuse HTN, HLD, PAD, who presented to the emergency department last evening with complaint of shortness of breath. She was initially placed on BiPAP but she was found to have mixed respiratory and metabolic acidosis and BMP showing acute renal failure. Patient had reported several days of diarrhea prior to coming into the emergency department. She was initially placed on BiPAP and started on bicarb drip. She was taken for CT abdomen and pelvis Which showed bilateral pleural effusions, diverticulosis without evidence of diverticulitis. Patient became increasingly tachypneic with labored work of breathing and patient was emergently intubated in the ER. She is now transferred to the ICU for further management at this time. Allergies Allergy/AdvReac Type Severity Reaction Status Date / Time No Known Allergies Allergy Verified 09/08/22 21:57 Home Medications Medication Instructions Recorded Confirmed Type acetaminophen 500 mg tablet 500 mg PO Q6H PRN Pain 08/04/19 09/08/22 History (Tylenol Extra Strength) albuterol sulfate 90 mcg/actuation 2 puff inhalation QID PRN 03/02/22 09/08/22 Rx aerosol inhaler shortness of breath or wheezing #6.7 grams ipratropium bromide 17 2 puff inhalation QID PRN 03/02/22 09/08/22 Rx mcg/actuation HFA aerosol inhaler shortness of breath or wheezing #12.9 grams atorvastatin 40 mg tablet 40 mg PO QAM 30 days #30 tabs 03/31/22 09/08/22 Rx lisinopril 10 mg tablet 30 mg PO HS #90 tabs 03/31/22 09/08/22 Rx amlodipine 5 mg tablet (Norvasc) 5 mg PO QAM 30 days #30 tabs 04/02/22 09/08/22 Rx metoprolol succinate 50 mg 100 mg PO HS 30 days #60 tabs 04/02/22 09/08/22 Rx tablet,extended release 24 hr escitalopram oxalate 5 mg tablet 5 mg PO DAILY #30 tabs 08/28/22 09/08/22 Rx (Lexapro) aspirin 81 mg tablet,delayed 81 mg PO DAILY 09/08/22 09/08/22 History release Patient History Medical History (Updated 09/09/22 @ 15:03 by Dyana Ashby DNP) Advanced care planning/counseling discussion Anxiety Dyspnea and respiratory abnormalities Fracture of distal end of right radius with malunion History of anxiety Hyperlipidemia Hypertension Osteoarthritis PAD (peripheral artery disease) Palliative care by specialist Radius fracture RT Surgical History H/O carotid endarterectomy LEFT H/O wrist surgery RT 40 YRS AGO H/O: hysterectomy History of cataract surgery RT/LEFT History of colonoscopy History of surgery on right wrist Right Distal Radius Open Reduction Internal Fixation History of tooth extraction Family History Brother Family history of diabetes mellitus Social History Smoking Status: Former smoker Age Started Using Tobacco: 13; Age Quit Using Tobacco: 77; Cigarettes Per Day: 10; Second Hand Exposure: No; Do You Dip or Chew Tobacco: No; Hx Alcohol Use: No Hx Substance Use: No Preferred Language: Arabic Communication Ability: Impaired Hearing Ability: 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 Beliefs That Will Affect Care: None marital status: Current Living Situation: Family current occupational status: retired How many Children do You have: 4 Feels Safe at Home: Yes Childhood Exposure to Second-Hand Smoke: Yes Diet: regular Dental Care, Regularly: Yes Physical Activity Frequency: 1-2 Times per Week Seatbelt Use: sometimes Sunscreen Use: No Assistive Devices: Cane Review of Systems Review of Systems: Unobtainable due to endotracheal tube Physical Exam Constitutional: + frail appearing and + mechanically ventilated Eyes: PERRL, conjunctivae normal, anicteric sclerae ENMT: external ear and nose normal, oropharynx normal Neck: trachea midline, no thyromegaly Respiratory: Expiratory wheeze auscultated bilaterally. Symmetrical chest wall movement. Mechanically ventilated. Cardiovascular: Rate/Rhythm: regular rate and regular rhythm Heart Sounds: normal S1 and normal S2 Vessels: no JVD Extremities: no edema Gastrointestinal (Abdomen): normal bowel sounds, soft, nontender, no hepatosplenomegaly Musculoskeletal: no cyanosis or clubbing, extremities motor strength 5/5 Skin: no rashes, warm and dry Neurologic: Unable to assess due to sedation. Psychiatric: Unable to assess due to sedation. Genitourinary: Indwelling Ray catheter placed. Urine is concentrated, dark yellow Results & Data Results & Data Vital Signs (Past 12 Hours) Vital Signs Temp Pulse Pulse Pulse Resp BP BP 09/09/22 03:26 93 H 28 H 09/09/22 00:40 88 26 H 09/09/22 03:03 09/09/22 02:52 35.4 C L 94 H 28 H 155/90 H 09/09/22 02:00 77 26 H 168/64 H 09/09/22 00:40 114 H 09/09/22 01:45 83 26 H 179/88 H 09/09/22 01:30 90 26 H 179/70 H 09/09/22 01:15 110 H 26 H 180/78 H 09/09/22 01:01 99 H 26 H 156/93 H 09/09/22 00:45 101 H 23 131/62 09/09/22 00:39 120 H 38 H 110/82 09/09/22 00:15 83 24 174/98 H 09/09/22 00:00 78 28 H 174/99 H 09/08/22 23:30 09/08/22 23:15 76 19 09/08/22 23:00 72 20 09/08/22 22:45 72 20 168/105 H 09/09/22 00:06 79 30 H 09/08/22 23:13 74 28 H 09/08/22 22:30 67 26 H 185/88 H 09/08/22 22:15 65 28 H 177/86 H 09/08/22 22:00 66 23 166/95 H 09/08/22 21:45 64 26 H 168/70 H 09/08/22 21:54 68 29 H 09/08/22 21:50 72 31 H 09/08/22 22:00 09/08/22 21:31 63 09/08/22 21:26 09/08/22 20:57 09/08/22 20:53 36.8 C 65 20 156/72 H Pulse Ox O2 Del Method O2 Flow Rate FiO2 09/09/22 03:26 98 30 09/09/22 00:40 100 40 09/09/22 03:03 Mechanical Vent 30 09/09/22 02:52 96 Mechanical Vent 30 09/09/22 02:00 100 Mechanical Vent 09/09/22 00:40 09/09/22 01:45 100 Mechanical Vent 09/09/22 01:30 100 Mechanical Vent 09/09/22 01:15 100 Mechanical Vent 09/09/22 01:01 99 Mechanical Vent 09/09/22 00:45 09/09/22 00:39 09/09/22 00:15 100 BiPAP 09/09/22 00:00 93 Oxymask 4 09/08/22 23:30 92 Nasal Cannula 2 09/08/22 23:15 100 BiPAP 06/06/23 23:00 100 BiPAP 09/08/22 22:45 100 BiPAP 09/09/22 00:06 94 30 09/08/22 23:13 100 BiPAP 30 09/08/22 22:30 100 BiPAP, Nebulizer 09/08/22 22:15 100 BiPAP, Nebulizer 09/08/22 22:00 100 BiPAP, Nebulizer 09/08/22 21:45 92 Room Air 09/08/22 21:54 94 30 09/08/22 21:50 30 L BiPAP 09/08/22 22:00 100 BiPAP 09/08/22 21:31 09/08/22 21:26 91 Room Air 0 09/08/22 20:57 Room Air 09/08/22 20:53 93 Room Air Coding Level of Care Code 75120 CRITICAL CARE 1ST 30-74M Diagnoses Acute respiratory failure with hypoxia and hypercarbia J96.01; J96.02 Respiratory acidosis with metabolic acidosis E87.4 Acute renal failure N17.9 PAD (peripheral artery disease) I73.9 COPD (chronic obstructive pulmonary disease) J44.9 Generalized weakness R53.1 Elevated troponin R77.8 History of anxiety Z86.59 Tobacco use Z72.0 Hypertension I10 Hyperlipidemia E78.5 Hyperkalemia E87.5 Endotracheally intubated Z97.8
[2022-09-09 03:39] LABS: Base Excess VBG -3.4 mEq/L; HCO3 VBG 20 mmol/L; Oxygen Saturation VBG 78.6 %; PCO2 VBG 31 mmHg (38-50); PO2 VBG 42 mmHg; pH VBG 7.42 (7.36-7.41)
[2022-09-09] MEDS ORDERED: methylPREDNISolone 80 MG in SYRINGE 0 ML IV SCH (04:00)
[2022-09-09] MEDS ORDERED: SODIUM CHLORIDE 0.9% 1000ML 1,000 ML IV SCH ×2 (04:00→09:30)
[2022-09-09 04:26] LABS: Calcium 7.4 mg/dl (8.6-10.3); Creatinine Clr Calc Pharmacy 6.2 ml/min; Est GFR (African American) 6.4 ml/min; Est GFR (Non-African American) 5.5 ml/min; Magnesium 2.5 mg/dl (1.7-2.4); Potassium 4.8 mmol/L (3.5-5.1); Troponin I High Sensitivity 139.9 pg/ml (0-14)
[2022-09-09] MEDS ORDERED: GLUCAGON FOR INJ 1 MG VIAL SQ PRN (04:53)
[2022-09-09] MEDS ORDERED: PHARMACY GLYCEMIC MGMT CONSULT PRN ×2 (04:53→09:27)
[2022-09-09] MEDS ORDERED: CARBOHYDRATES FOR HYPOGLYCEMIA PO PRN (04:53)
[2022-09-09] MEDS ORDERED: DEXTROSE 50% 50 ML SYRINGE IV PRN (04:53)
[2022-09-09] MEDS ORDERED: GLUCOSE 10 TAB/TUBE PO PRN (04:53)
[2022-09-09] MEDS ORDERED: GLUCOSE 40% GEL 15 GM TUBE PO PRN (04:53)
[2022-09-09] MEDS ORDERED: ALBUT/IPRATROP 3MG/0.5MG NEB 3 ML VIAL NEB STA (04:53)
[2022-09-09] MEDS ORDERED: LANTUS PER UNIT CHARGE SC ONE (05:30)
[2022-09-09] MEDS ORDERED: SODIUM CHLORIDE 0.9% 1000ML 500 ML IV ONE (05:37)
[2022-09-09 05:46] LABS: iSTAT Allen Test Pass; iSTAT Art Bld Gas pCO2 Correct 21 mmHg (35-46); iSTAT Art Bld Gas pH Corrected 7.504 (7.35-7.45); iSTAT Arterial Blood Gas HCO3 16 meg/L (19-24); iSTAT Arterial Blood Gas pCO2 22 mmHg (35-46); iSTAT Arterial Blood Gas pH 7.49 (7.35-7.45); iSTAT Arterial Blood Gas pO2 102 mmHg (80-95); iSTAT Arterial Blood Gas pO2 C 95; iSTAT Carbon Dioxide 17 mmol/L (24-31); iSTAT Hematocrit 32 % (37-47); iSTAT Hemoglobin 10.9 g/dl (12.0-16.0); iSTAT Potassium 4.6 mmol/L (3.3-5.0); iSTAT Site L Brachial; iSTAT Sodium 125 mmol/L (135-144)
[2022-09-09] MEDS ORDERED: LABETALOL HCL IV 5 MG/ML 20ML IV STA (05:47)
[2022-09-09] MEDS ORDERED: LABETALOL HCL IV 5 MG/ML 20ML IV ONE (05:48)
[2022-09-09] MEDS: propofoL 1,000 MG/100 ML VIAL IV SCH ×2 (05:54→18:15)
[2022-09-09] MEDS: PROPOFOL BOLUS FROM BAG IV PRN ×2 (05:55→23:02)
--- NOTE | 2022-09-09 07:11 | XRay Report ---
SINGLE VIEW CHEST CLINICAL HISTORY: Dyspnea FINDINGS: An AP, portable, upright chest radiograph is compared to study dated 03/07/2022 and correlat ed with chest CT dated 03/09/2022. The examination is degraded by portable technique and patient rotat ion. The heart is enlarged noting atherosclerotic calcification of the thoracic aorta. There is pulm onary vascular congestion. Chronic interstitial thickening is similar to previous. There is diffuse s ubpleural reticulation. Airspace opacities are present at both lung bases. There are small pleural ef fusions. No pneumothorax is seen. The skeletal structures are osteopenic. The bony thorax is grossly intact. IMPRESSION: 1. Cardiomegaly with pulmonary vascular congestion. 2. Bibasilar airspace opacities could represent scarring/atelectasis versus a developing pneumonitis. Correlate clinically. 3. Small pleural effusions. 4. Chronic interstitial change is similar to previous. ACT 112: Negative or not required by law. Electronically signed by: Edawrd Rossi M.D. 09/09/2022 7:10 AM
--- NOTE | 2022-09-09 07:21 | XRay Report ---
SINGLE VIEW CHEST CLINICAL HISTORY: Central venous catheter placement. FINDINGS: An AP, portable, upright chest radiograph is compared to study studies performed earlier th e same day 09/09/2022 and correlated with chest CT dated 03/09/2022. The examination is degraded by port able technique and patient rotation. An endotracheal tube is unchanged in position. An enteric tube h as been placed. The tip projects below the diaphragm over the stomach. A right internal jugular centr al venous catheter has been placed. The tip projects over the SVC. The heart is enlarged noting ather osclerotic calcification of the thoracic aorta. There is pulmonary vascular congestion. Chronic inter stitial thickening is similar to previous. There is diffuse subpleural reticulation. Airspace opaciti es are present at both lung bases. There are small pleural effusions. No pneumothorax is seen. The sk eletal structures are osteopenic. The bony thorax is grossly intact. IMPRESSION: 1. Lines and tubes as above. No pneumothorax is seen post central venous catheter placement. 2. Cardiomegaly with evidence of congestive failure. 3. Small pleural effusions. 4. Bibasilar opacities are unchanged. ACT 112: Negative or not required by law. Electronically signed by: Edward Rossi M.D. 09/09/2022 7:19 AM
[2022-09-09] MEDS: ALBUT/IPRATROP 3MG/0.5MG NEB 3 ML VIAL NEB SCH ×5 (07:22→22:05)
--- NOTE | 2022-09-09 07:22 | XRay Report ---
SINGLE VIEW CHEST CLINICAL HISTORY: Respiratory failure. Intubation. FINDINGS: An AP, portable, supine chest radiograph is compared to study dated 09/08/2022 and correlated with chest CT dated 03/09/2022. The examination is degraded by portable technique and patient rotatio n. An endotracheal tube has been placed. The tip projects 4.5 cm above the codi. The heart is enlar ged noting atherosclerotic calcification of the thoracic aorta. There is pulmonary vascular congestio n. Chronic interstitial thickening is similar to previous. There is diffuse subpleural reticulation. Airspace opacities are present at both lung bases. There are small pleural effusions. No pneumothorax is seen. The skeletal structures are osteopenic. The bony thorax is grossly intact. IMPRESSION: 1. An endotracheal tube has been placed as above. 2. Cardiomegaly with evidence of congestive failure. 3. Small pleural effusions. 4. Bibasilar opacities are unchanged. ACT 112: Negative or not required by law. Electronically signed by: Edward Rossi M.D. 09/09/2022 7:20 AM
[2022-09-09] MEDS ORDERED: ICU Protocol for HYPERglycemia SCH (07:30)
[2022-09-09] MEDS ORDERED: INSULIN ASPART PER UNIT CHARGE SC SCH ×3 (07:30→11:30)
[2022-09-09 07:44] LABS: Base Excess VBG -4.9 mEq/L; HCO3 VBG 21 mmol/L; Oxygen Saturation VBG 75.5 %; PCO2 VBG 39 mmHg (38-50); PO2 VBG 46 mmHg; pH VBG 7.33 (7.36-7.41)
[2022-09-09] MEDS: HEPARIN SOD 5,000 UNIT/0.5 ML VIAL SQ SCH ×2 (08:34→21:39)
[2022-09-09 08:42] LABS: Calcium 7.2 mg/dl (8.6-10.3); Potassium 4.8 mmol/L (3.5-5.1)
[2022-09-09 08:59] LABS: BUN Creatinine Ratio 16.7 (10-20); Creatinine Clr Calc Pharmacy 6.5 ml/min; Est GFR (African American) 6.7 ml/min; Est GFR (Non-African American) 5.8 ml/min
[2022-09-09] MEDS ORDERED: ASPIRIN 81 MG ECTAB PO SCH (09:00)
[2022-09-09] MEDS ORDERED: amLODIPine BESYLATE 5 MG TAB PO SCH (09:00)
[2022-09-09] MEDS ORDERED: ATORVASTATIN 40 MG TAB PO SCH (09:00)
--- NOTE | 2022-09-09 09:12 | Nephrology Consultation ---
Date of Consultation September 09, 2022 Assessment & Plan (1) Hyperkalemia: Improved with supportive care. Non-oliguric. No concerning changes on telemetry. (2) Acute renal failure: Non-oliguric. Right kidney chronically atrophic. Left kidney unobstructed. Creatinine normal at baseline. CT demonstrating notable underlying calcific vascular disease of the renal arteries. Possible underlying renal arterial disease. UA +3 protein, 3+ blood, trace LE. Microscopy with 5-10 WBC, no RBC. CK not elevated. Clinical presentation suggestive of prerenal CHRISTIE and superimposed ATN. No emergent indication for dialysis at this time. Goal is to maintain a relative even fluid balance. Document strict I/O's. Repeat metabolic profile this AM. Lisinopril held. Medications appropriately dosed for kidney function. (3) Acute respiratory failure with hypoxia and hypercarbia: Suspected underlying exacerbation of COPD with possible aspiration. Trigger unclear. TTE pending to further evaluate valvular heart disease. Plan of care was discussed with Dr. Seay this AM. (4) Endotracheally intubated: PS. Awake. Appears comfortable. May consider trial of diuretics as needed to encourage urine output to assist with extubation. CXR demonstrating some evidence of CHF. (5) PAD (peripheral artery disease): CT demonstrating some evidence of renovascular disease. Notable calcific vascular disease. History of Present Illness Reason for Consultation: CHRISTIE Requesting Physician: Nikhil Skaggs Attending Physician: Nikhil Skaggs History of Present Illness Tayla Alvarez is a 77 year-old female with calcific vascular disease, moderate aortic stenosis, a chronically atrophic right kidney, hypertension, tobacco abuse, COPD, hyperlipidemia, and OA/DJD. She presented to the ER at [facility] for evaluation of progressive shortness of breath. Tayla presented with acute hypoxic and hypercapnic respiratory failure. She was placed on BIPAP and after vomiting in the ER was intubated and placed on mechanical ventilator support. History was obtained through review of the medical record and discussion with quality worker and field care advocate. Tayla was seen and evaluated in the ICU this morning. She is awake and comfortable on PS ventilation. She makes good eye contact and nods 'yes/no' to questions. Laboratory studies on admission notable for acute kidney injury. Serum creati nine measured at 0.9 mg/dL in March 2022. Creatinine 7.25 mg/dL on admission. Creatinine 6.57 mg/dL this AM. Urine output low but non-oliguric. Electrolytes have been acceptable. ROS on admission notable for several days of reported diarrhea. She has been afebrile. BP elevated. No recent changes in medications. Allergies Allergy/AdvReac Type Severity Reaction Status Date / Time No Known Allergies Allergy Verified 09/08/22 21:57 Home Medications Medication Instructions Recorded Confirmed Type acetaminophen 500 mg tablet 500 mg PO Q6H PRN Pain 08/04/19 09/08/22 History (Tylenol Extra Strength) albuterol sulfate 90 mcg/actuation 2 puff inhalation QID PRN 03/02/22 09/08/22 Rx aerosol inhaler shortness of breath or wheezing #6.7 grams ipratropium bromide 17 2 puff inhalation QID PRN 03/02/22 09/08/22 Rx mcg/actuation HFA aerosol inhaler shortness of breath or wheezing #12.9 grams atorvastatin 40 mg tablet 40 mg PO QAM 30 days #30 tabs 03/31/22 09/08/22 Rx lisinopril 10 mg tablet 30 mg PO HS #90 tabs 03/31/22 09/08/22 Rx amlodipine 5 mg tablet (Norvasc) 5 mg PO QAM 30 days #30 tabs 04/02/22 09/08/22 Rx metoprolol succinate 50 mg 100 mg PO HS 30 days #60 tabs 04/02/22 09/08/22 Rx tablet,extended release 24 hr escitalopram oxalate 5 mg tablet 5 mg PO DAILY #30 tabs 08/28/22 09/08/22 Rx (Lexapro) aspirin 81 mg tablet,delayed 81 mg PO DAILY 09/08/22 09/08/22 History release Patient History Medical History Fracture of distal end of right radius with malunion History of anxiety Hyperlipidemia Hypertension Osteoarthritis PAD (peripheral artery disease) Radius fracture RT Surgical History H/O carotid endarterectomy LEFT H/O wrist surgery RT 40 YRS AGO H/O: hysterectomy History of cataract surgery RT/LEFT History of colonoscopy History of surgery on right wrist Right Distal Radius Open Reduction Internal Fixation History of tooth extraction Family History Brother Family history of diabetes mellitus Social History Smoking Status: Former smoker Age Started Using Tobacco: 13; Age Quit Using Tobacco: 77; Cigarettes Per Day: 10; Second Hand Exposure: No; Do You Dip or Chew Tobacco: No; Hx Alcohol Use: No Hx Substance Use: No Preferred Language: Haitian Communication Ability: Impaired Hearing Ability: Use of Hearing Aid Operations Assistant Required: No Beliefs That Will Affect Care: None marital status: Current Living Situation: Family current occupational status: retired How many Children do You have: 4 Feels Safe at Home: Yes Childhood Exposure to Second-Hand Smoke: Yes Diet: regular Dental Care, Regularly: Yes Physical Activity Frequency: 1-2 Times per Week Seatbelt Use: sometimes Sunscreen Use: No Assistive Devices: Cane Review of Systems Review of Systems: Unobtainable due to reduced consciousness Physical Exam Constitutional: well developed and + mechanically ventilated; no acute distress Eyes: + anicteric sclerae and + pinpoint pupils ENMT: ETT Neck: normal visual inspection and trachea midline Respiratory: normal respiratory effort Auscultation: lungs clear to auscultation bilaterally Cardiovascular: Rate/Rhythm: regular rate Heart Sounds: normal S1, normal S2 and + murmur Extremities: no edema Musculoskeletal: Extremities: no cyanosis and no clubbing Skin: + turgor decreased; no jaundice Neurologic: Motor/Sensory: no tremor and no asterixis Psychiatric: Orientation: alert Genitourinary: Ray with ~50 ml of clear yellow urine in bag Results & Data Vital Signs (Past 12 Hours) Vital Signs Temp Pulse Pulse Pulse Resp BP BP 09/09/22 06:00 36.1 C L 75 16 09/09/22 06:00 168/69 H 09/09/22 05:41 182/83 H 09/09/22 05:41 36.0 C L 76 18 09/09/22 05:34 35.9 C L 78 18 09/09/22 05:34 192/73 H 09/09/22 05:01 35.6 C L 81 28 H 09/09/22 05:01 199/102 H 09/09/22 05:00 35.6 C L 83 25 H 09/09/22 05:24 79 09/09/22 04:00 35.3 C L 77 25 H 09/09/22 04:00 149/64 H 09/09/22 03:30 35.4 C L 73 24 09/09/22 03:00 35.4 C L 79 25 H 09/09/22 02:33 155/90 H 09/09/22 02:33 91 H 24 09/09/22 02:30 95 H 24 09/09/22 03:00 113 H 09/09/22 03:26 93 H 28 H 09/09/22 00:40 88 26 H 09/09/22 04:00 09/09/22 03:03 09/09/22 02:52 35.4 C L 94 H 28 H 155/90 H 09/09/22 02:00 77 26 H 168/64 H 09/09/22 00:40 114 H 09/09/22 01:45 83 26 H 179/88 H 09/09/22 01:30 90 26 H 179/70 H 09/09/22 01:15 110 H 26 H 180/78 H 09/09/22 01:01 99 H 26 H 156/93 H 09/09/22 00:45 101 H 23 131/62 09/09/22 00:39 120 H 38 H 110/82 09/09/22 00:15 83 24 174/98 H 09/09/22 00:00 78 28 H 174/99 H 09/08/22 23:30 09/08/22 23:15 76 19 09/08/22 23:00 72 20 09/08/22 22:45 72 20 168/105 H 09/09/22 00:06 79 30 H 09/08/22 23:13 74 28 H 09/08/22 22:30 67 26 H 185/88 H 09/08/22 22:15 65 28 H 177/86 H 09/08/22 22:00 66 23 166/95 H 09/08/22 21:45 64 26 H 168/70 H 09/08/22 21:54 68 29 H 09/08/22 21:50 72 31 H 09/08/22 22:00 09/08/22 21:31 63 09/08/22 21:26 Pulse Ox O2 Del Method O2 Flow Rate FiO2 09/09/22 06:00 99 06/07/23 06:00 09/09/22 05:41 09/09/22 05:41 99 09/09/22 05:34 100 09/09/22 05:34 09/09/22 05:01 100 09/09/22 05:01 09/09/22 05:00 100 09/09/22 05:24 100 09/09/22 04:00 100 09/09/22 04:00 09/09/22 03:30 98 09/09/22 03:00 97 09/09/22 02:33 09/09/22 02:33 98 09/09/22 02:30 98 09/09/22 03:00 09/09/22 03:26 98 30 09/09/22 00:40 100 40 09/09/22 04:00 30 09/09/22 03:03 Mechanical Vent 30 09/09/22 02:52 96 Mechanical Vent 30 09/09/22 02:00 100 Mechanical Vent 09/09/22 00:40 09/09/22 01:45 100 Mechanical Vent 09/09/22 01:30 100 Mechanical Vent 09/09/22 01:15 100 Mechanical Vent 09/09/22 01:01 99 Mechanical Vent 09/09/22 00:45 09/09/22 00:39 09/09/22 00:15 100 BiPAP 09/09/22 00:00 93 Oxymask 4 09/08/22 23:30 92 Nasal Cannula 2 09/08/22 23:15 100 BiPAP 09/08/22 23:00 100 BiPAP 09/08/22 22:45 100 BiPAP 09/09/22 00:06 94 30 09/08/22 23:13 100 BiPAP 30 09/08/22 22:30 100 BiPAP, Nebulizer 09/08/22 22:15 100 BiPAP, Nebulizer 09/08/22 22:00 100 BiPAP, Nebulizer 09/08/22 21:45 92 Room Air 09/08/22 21:54 94 30 09/08/22 21:50 30 L BiPAP 09/08/22 22:00 100 BiPAP 09/08/22 21:31 09/08/22 21:26 91 Room Air 0 Laboratory Results Laboratory Results - last 24 hr 09/08/22 09/08/22 09/08/22 21:30 21:30 21:30 WBC 17.75 H RBC 4.10 L Hgb 12.0 POC Hgb Hct 35.5 L POC Hct MCV 86.6 MCH 29.3 MCHC 33.8 RDW Std Deviation 45.9 RDW Coeff of Angela 14.5 Plt Count 262 MPV 10.3 Immature Gran % (Auto) 0.5 Neut % (Auto) 83.6 Lymph % (Auto) 7.4 [place] % (Auto) 8.3 Eos % (Auto) 0.0 Baso % (Auto) 0.2 Neut # (Auto) 14.84 H Lymph # (Auto) 1.32 [place] # (Auto) 1.47 H Eos # (Auto) 0.00 Baso # (Auto) 0.03 Immature Gran # (Auto) 0.09 PT 11.2 INR 1.0 APTT 25.3 PTT Ratio 0.9 Sample Site POC pH POC pCO2 POC pO2 POC HCO3 POC Base Excess ABG pH (Temp Correct) ABG pCO2 (Temp Corrct POC ABG pO2 at Pt Temp POC ABG O2 Sat Tex Test VBG pH VBG pCO2 VBG pO2 VBG HCO3 VBG O2 Saturation VBG Base Excess O2 Delivery Device POC Sodium Sodium 125 L POC Potassium Potassium 6.4 H* POC Chloride Chloride 92 L Carbon Dioxide 16 L POC Total CO2 Anion Gap 17 H POC Anion Gap POC BUN BUN 112 H Creatinine 7.25 H* POC Creatinine Est Cr Clr Drug Dosing Not Reportable Est GFR ( Amer) 5.7 Est GFR (Non-Af Amer) 4.9 BUN/Creatinine Ratio 15.4 Glucose 123 H POC Glucose POC Glucose (other) Lactate Calcium 8.3 L POC Ioniz Calcium Kwaku Magnesium Total Bilirubin 0.5 AST 49 H ALT 63 H Alkaline Phosphatase 91 Total Creatine Kinase Troponin I High Sens 67.1 H* Total Protein 7.0 Albumin 3.6 Globulin 3.4 Albumin/Globulin Ratio 1.1 Procalcitonin Urine Color Urine Appearance Urine pH Ur Specific [place] Urine Protein Urine Glucose (UA) Urine Ketones Urine Blood Urine Nitrite Urine Bilirubin Urine Urobilinogen Ur Leukocyte Esterase Urine WBC (Auto) Urine RBC (Auto) U Hyaline Cast (Auto) U Epithel Cells (Auto) Urine Bacteria (Auto) Nasal Screen MRSA (PCR) SARS-CoV-2 (PCR) Influenza Type A (PCR) Influenza Type B (PCR) RSV (RT-PCR) 09/08/22 09/08/22 09/08/22 21:30 21:44 22:53 WBC RBC Hgb POC Hgb 12.2 Hct POC Hct 36 L MCV MCH MCHC RDW Std Deviation RDW Coeff of Angela Plt Count MPV Immature Gran % (Auto) Neut % (Auto) Lymph % (Auto) [place] % (Auto) Eos % (Auto) Baso % (Auto) Neut # (Auto) Lymph # (Auto) [place] # (Auto) Eos # (Auto) Baso # (Auto) Immature Gran # (Auto) PT INR APTT PTT Ratio Sample Site POC pH POC pCO2 POC pO2 POC HCO3 POC Base Excess ABG pH (Temp Correct) ABG pCO2 (Temp Corrct POC ABG pO2 at Pt Temp POC ABG O2 Sat Tex Test VBG pH VBG pCO2 VBG pO2 VBG HCO3 VBG O2 Saturation VBG Base Excess O2 Delivery Device POC Sodium 124 L Sodium POC Potassium 6.7 H* Potassium POC Chloride 97 L Chloride Carbon Dioxide POC Total CO2 19 L Anion Gap POC Anion Gap 16.0 POC BUN 135 H* BUN Creatinine POC Creatinine 8.2 H* Est Cr Clr Drug Dosing Est GFR ( Amer) Est GFR (Non-Af Amer) BUN/Creatinine Ratio Glucose POC Glucose POC Glucose (other) 150 H Lactate Calcium POC Ioniz Calcium Kwaku 1.02 L Magnesium Total Bilirubin AST ALT Alkaline Phosphatase Total Creatine Kinase Troponin I High Sens Total Protein Albumin Globulin Albumin/Globulin Ratio Procalcitonin 0.65 H Urine Color Urine Appearance Urine pH Ur Specific [place] Urine Protein Urine Glucose (UA) Urine Ketones Urine Blood Urine Nitrite Urine Bilirubin Urine Urobilinogen Ur Leukocyte Esterase Urine WBC (Auto) Urine RBC (Auto) U Hyaline Cast (Auto) U Epithel Cells (Auto) Urine Bacteria (Auto) Nasal Screen MRSA (PCR) SARS-CoV-2 (PCR) NEGATIVE Influenza Type A (PCR) Negative Influenza Type B (PCR) Negative RSV (RT-PCR) Negative 09/08/22 09/08/22 09/08/22 22:56 22:56 22:56 WBC RBC Hgb POC Hgb Hct POC Hct MCV MCH MCHC RDW Std Deviation RDW Coeff of Angela Plt Count MPV Immature Gran % (Auto) Neut % (Auto) Lymph % (Auto) [place] % (Auto) Eos % (Auto) Baso % (Auto) Neut # (Auto) Lymph # (Auto) [place] # (Auto) Eos # (Auto) Baso # (Auto) Immature Gran # (Auto) PT INR APTT PTT Ratio Sample Site POC pH POC pCO2 POC pO2 POC HCO3 POC Base Excess ABG pH (Temp Correct) ABG pCO2 (Temp Corrct POC ABG pO2 at Pt Temp POC ABG O2 Sat Tex Test VBG pH 7.22 L VBG pCO2 46 VBG pO2 45 VBG HCO3 19 VBG O2 Saturation 72.1 VBG Base Excess -8.8 O2 Delivery Device POC Sodium Sodium 125 L POC Potassium Potassium 6.4 H* POC Chloride Chloride 93 L Carbon Dioxide 18 L POC Total CO2 Anion Gap 14 H POC Anion Gap POC BUN BUN 110 H Creatinine 7.18 H* POC Creatinine Est Cr Clr Drug Dosing Not Reportable Est GFR ( Amer) 5.7 Est GFR (Non-Af Amer) 4.9 BUN/Creatinine Ratio 15.3 Glucose 148 H POC Glucose POC Glucose (other) Lactate 0.9 Calcium 8.0 L POC Ioniz Calcium Kwaku Magnesium Total Bilirubin AST ALT Alkaline Phosphatase Total Creatine Kinase 147 Troponin I High Sens Total Protein Albumin Globulin Albumin/Globulin Ratio Procalcitonin Urine Color Urine Appearance Urine pH Ur Specific [place] Urine Protein Urine Glucose (UA) Urine Ketones Urine Blood Urine Nitrite Urine Bilirubin Urine Urobilinogen Ur Leukocyte Esterase Urine WBC (Auto) Urine RBC (Auto) U Hyaline Cast (Auto) U Epithel Cells (Auto) Urine Bacteria (Auto) Nasal Screen MRSA (PCR) SARS-CoV-2 (PCR) Influenza Type A (PCR) Influenza Type B (PCR) RSV (RT-PCR) 09/09/22 09/09/22 09/09/22 00:26 01:03 01:04 WBC RBC Hgb POC Hgb 9.9 L Hct POC Hct 29 L MCV MCH MCHC RDW Std Deviation RDW Coeff of Angela Plt Count MPV Immature Gran % (Auto) Neut % (Auto) Lymph % (Auto) [place] % (Auto) Eos % (Auto) Baso % (Auto) Neut # (Auto) Lymph # (Auto) [place] # (Auto) Eos # (Auto) Baso # (Auto) Immature Gran # (Auto) PT INR APTT PTT Ratio Sample Site POC pH 7.21 L POC pCO2 43 POC pO2 109 H POC HCO3 17 L POC Base Excess -11.0 L ABG pH (Temp Correct) ABG pCO2 (Temp Corrct POC ABG pO2 at Pt Temp POC ABG O2 Sat 97.0 H Tex Test VBG pH VBG pCO2 VBG pO2 VBG HCO3 VBG O2 Saturation VBG Base Excess O2 Delivery Device POC Sodium 125 L Sodium POC Potassium 4.9 Potassium POC Chloride Chloride Carbon Dioxide POC Total CO2 18 L Anion Gap POC Anion Gap POC BUN BUN Creatinine POC Creatinine Est Cr Clr Drug Dosing Est GFR ( Amer) Est GFR (Non-Af Amer) BUN/Creatinine Ratio Glucose POC Glucose 425 H* POC Glucose (other) Lactate Calcium POC Ioniz Calcium Kwaku Magnesium Total Bilirubin AST ALT Alkaline Phosphatase Total Creatine Kinase Troponin I High Sens Total Protein Albumin Globulin Albumin/Globulin Ratio Procalcitonin Urine Color Urine Appearance Urine pH Ur Specific [place] Urine Protein Urine Glucose (UA) Urine Ketones Urine Blood Urine Nitrite Urine Bilirubin Urine Urobilinogen Ur Leukocyte Esterase Urine WBC (Auto) Urine RBC (Auto) U Hyaline Cast (Auto) U Epithel Cells (Auto) Urine Bacteria (Auto) Nasal Screen MRSA (PCR) Negative SARS-CoV-2 (PCR) Influenza Type A (PCR) Influenza Type B (PCR) RSV (RT-PCR) 09/09/22 09/09/22 09/09/22 03:32 03:32 03:32 WBC RBC Hgb POC Hgb Hct POC Hct MCV MCH MCHC RDW Std Deviation RDW Coeff of Angela Plt Count MPV Immature Gran % (Auto) Neut % (Auto) Lymph % (Auto) [place] % (Auto) Eos % (Auto) Baso % (Auto) Neut # (Auto) Lymph # (Auto) [place] # (Auto) Eos # (Auto) Baso # (Auto) Immature Gran # (Auto) PT INR APTT PTT Ratio Sample Site POC pH POC pCO2 POC pO2 POC HCO3 POC Base Excess ABG pH (Temp Correct) ABG pCO2 (Temp Corrct POC ABG pO2 at Pt Temp POC ABG O2 Sat Tex Test VBG pH 7.42 H VBG pCO2 31 L VBG pO2 42 VBG HCO3 20 VBG O2 Saturation 78.6 VBG Base Excess -3.4 O2 Delivery Device POC Sodium Sodium 128 L POC Potassium Potassium 4.8 D POC Chloride Chloride 92 L Carbon Dioxide 20 L POC Total CO2 Anion Gap 16 H POC Anion Gap POC BUN BUN 105 H Creatinine 6.57 H* D POC Creatinine Est Cr Clr Drug Dosing 6.2 Est GFR ( Amer) 6.4 Est GFR (Non-Af Amer) 5.5 BUN/Creatinine Ratio 16.0 Glucose 361 H* POC Glucose POC Glucose (other) Lactate 2.6 H* Calcium 7.4 L POC Ioniz Calcium Kwaku Magnesium 2.5 H Total Bilirubin AST ALT Alkaline Phosphatase Total Creatine Kinase Troponin I High Sens 139.9 H* D Total Protein Albumin Globulin Albumin/Globulin Ratio Procalcitonin Urine Color Urine Appearance Urine pH Ur Specific [place] Urine Protein Urine Glucose (UA) Urine Ketones Urine Blood Urine Nitrite Urine Bilirubin Urine Urobilinogen Ur Leukocyte Esterase Urine WBC (Auto) Urine RBC (Auto) U Hyaline Cast (Auto) U Epithel Cells (Auto) Urine Bacteria (Auto) Nasal Screen MRSA (PCR) SARS-CoV-2 (PCR) Influenza Type A (PCR) Influenza Type B (PCR) RSV (RT-PCR) 09/09/22 09/09/22 09/09/22 04:30 04:31 05:32 WBC RBC Hgb POC Hgb 10.9 L Hct POC Hct 32 L MCV MCH MCHC RDW Std Deviation RDW Coeff of Angela Plt Count MPV Immature Gran % (Auto) Neut % (Auto) Lymph % (Auto) [place] % (Auto) Eos % (Auto) Baso % (Auto) Neut # (Auto) Lymph # (Auto) [place] # (Auto) Eos # (Auto) Baso # (Auto) Immature Gran # (Auto) PT INR APTT PTT Ratio Sample Site L Brachial POC pH 7.49 H POC pCO2 22 L POC pO2 102 H POC HCO3 16 L POC Base Excess -7.0 ABG pH (Temp Correct) 7.504 H* ABG pCO2 (Temp Corrct 21 L POC ABG pO2 at Pt Temp 95 POC ABG O2 Sat 98.0 H Tex Test Pass VBG pH VBG pCO2 VBG pO2 VBG HCO3 VBG O2 Saturation VBG Base Excess O2 Delivery Device Ventilator POC Sodium 125 L Sodium POC Potassium 4.6 Potassium POC Chloride Chloride Carbon Dioxide POC Total CO2 17 L Anion Gap POC Anion Gap POC BUN BUN Creatinine POC Creatinine Est Cr Clr Drug Dosing Est GFR ( Amer) Est GFR (Non-Af Amer) BUN/Creatinine Ratio Glucose POC Glucose 351 H* 392 H* POC Glucose (other) Lactate Calcium POC Ioniz Calcium Kwaku Magnesium Total Bilirubin AST ALT Alkaline Phosphatase Total Creatine Kinase Troponin I High Sens Total Protein Albumin Globulin Albumin/Globulin Ratio Procalcitonin Urine Color Urine Appearance Urine pH Ur Specific [place] Urine Protein Urine Glucose (UA) Urine Ketones Urine Blood Urine Nitrite Urine Bilirubin Urine Urobilinogen Ur Leukocyte Esterase Urine WBC (Auto) Urine RBC (Auto) U Hyaline Cast (Auto) U Epithel Cells (Auto) Urine Bacteria (Auto) Nasal Screen MRSA (PCR) SARS-CoV-2 (PCR) Influenza Type A (PCR) Influenza Type B (PCR) RSV (RT-PCR) 09/09/22 09/09/22 09/09/22 07:17 07:17 07:17 WBC RBC Hgb POC Hgb Hct POC Hct MCV MCH MCHC RDW Std Deviation RDW Coeff of Angela Plt Count MPV Immature Gran % (Auto) Neut % (Auto) Lymph % (Auto) [place] % (Auto) Eos % (Auto) Baso % (Auto) Neut # (Auto) Lymph # (Auto) [place] # (Auto) Eos # (Auto) Baso # (Auto) Immature Gran # (Auto) PT INR APTT PTT Ratio Sample Site POC pH POC pCO2 POC pO2 POC HCO3 POC Base Excess ABG pH (Temp Correct) ABG pCO2 (Temp Corrct POC ABG pO2 at Pt Temp POC ABG O2 Sat Tex Test VBG pH 7.33 L VBG pCO2 39 VBG pO2 46 VBG HCO3 21 VBG O2 Saturation 75.5 VBG Base Excess -4.9 O2 Delivery Device POC Sodium Sodium 129 L POC Potassium Potassium 4.8 POC Chloride Chloride 94 L Carbon Dioxide 19 L POC Total CO2 Anion Gap 16 H POC Anion Gap POC BUN BUN 105 H Creatinine 6.27 H* D POC Creatinine Est Cr Clr Drug Dosing 6.5 Est GFR ( Amer) 6.7 Est GFR (Non-Af Amer) 5.8 BUN/Creatinine Ratio 16.7 Glucose 311 H* POC Glucose POC Glucose (other) Lactate 2.2 H* Calcium 7.2 L POC Ioniz Calcium Kwaku Magnesium Total Bilirubin AST ALT Alkaline Phosphatase Total Creatine Kinase Troponin I High Sens Total Protein Albumin Globulin Albumin/Globulin Ratio Procalcitonin Urine Color Urine Appearance Urine pH Ur Specific [place] Urine Protein Urine Glucose (UA) Urine Ketones Urine Blood Urine Nitrite Urine Bilirubin Urine Urobilinogen Ur Leukocyte Esterase Urine WBC (Auto) Urine RBC (Auto) U Hyaline Cast (Auto) U Epithel Cells (Auto) Urine Bacteria (Auto) Nasal Screen MRSA (PCR) SARS-CoV-2 (PCR) Influenza Type A (PCR) Influenza Type B (PCR) RSV (RT-PCR) 09/09/22 09/09/22 08:24 Unknown WBC RBC Hgb POC Hgb Hct POC Hct MCV MCH MCHC RDW Std Deviation RDW Coeff of Angela Plt Count MPV Immature Gran % (Auto) Neut % (Auto) Lymph % (Auto) [place] % (Auto) Eos % (Auto) Baso % (Auto) Neut # (Auto) Lymph # (Auto) [place] # (Auto) Eos # (Auto) Baso # (Auto) Immature Gran # (Auto) PT INR APTT PTT Ratio Sample Site POC pH POC pCO2 POC pO2 POC HCO3 POC Base Excess ABG pH (Temp Correct) ABG pCO2 (Temp Corrct POC ABG pO2 at Pt Temp POC ABG O2 Sat Tex Test VBG pH VBG pCO2 VBG pO2 VBG HCO3 VBG O2 Saturation VBG Base Excess O2 Delivery Device POC Sodium Sodium POC Potassium Potassium POC Chloride Chloride Carbon Dioxide POC Total CO2 Anion Gap POC Anion Gap POC BUN BUN Creatinine POC Creatinine Est Cr Clr Drug Dosing Est GFR ( Amer) Est GFR (Non-Af Amer) BUN/Creatinine Ratio Glucose POC Glucose 299 H POC Glucose (other) Lactate Calcium POC Ioniz Calcium Kwaku Magnesium Total Bilirubin AST ALT Alkaline Phosphatase Total Creatine Kinase Troponin I High Sens Total Protein Albumin Globulin Albumin/Globulin Ratio Procalcitonin Urine Color Yellow Urine Appearance Cloudy A Urine pH 5.5 Ur Specific [place] 1.015 Urine Protein 3+ H Urine Glucose (UA) Negative Urine Ketones Negative Urine Blood 3+ H Urine Nitrite Negative Urine Bilirubin Negative Urine Urobilinogen Negative Ur Leukocyte Esterase Trace H Urine WBC (Auto) 5-10 H Urine RBC (Auto) 0-4 U Hyaline Cast (Auto) 1-5 U Epithel Cells (Auto) >30 H Urine Bacteria (Auto) Negative Nasal Screen MRSA (PCR) SARS-CoV-2 (PCR) Influenza Type A (PCR) Influenza Type B (PCR) RSV (RT-PCR) Diagnostic Findings CT ABDOMEN + PELVIS Without Contrast Lung bases: Unremarkable. No mass. No consolidation. Pleural space: bilateral pleural effusions. Heart: Mitral and aortic valvular calcifications. ABDOMEN: Liver: Unremarkable. Gallbladder and bile ducts: Unremarkable. No calcified stones. No ductal dilation. Pancreas: Unremarkable. No ductal dilation. Spleen: Unremarkable. No splenomegaly. Adrenals: Unremarkable. No mass. Kidneys and ureters: Right kidney is atrophic this has progressed since 11/16/2013. No obstructing stones. No hydronephrosis. Stomach and bowel: Diverticulosis without evidence of diverticulitis. No obstruction. PELVIS: Appendix: No findings to suggest acute appendicitis. Bladder: Unremarkable. No stones. Reproductive: Uterus is surgically absent. ABDOMEN and PELVIS: Intraperitoneal space: Unremarkable. No free air. No significant fluid collection. Bones/joints: No acute fracture. No dislocation. Soft tissues: Unremarkable. Vasculature: Dense vascular calcifications of the aorta. Lymph nodes: Unremarkable. No enlarged lymph nodes. IMPRESSION: Bilateral pleural effusions with associated compressive atelectasis Cardiomegaly with mitral and aortic valvular calcifications Diverticulosis without evidence of diverticulitis SINGLE VIEW CHEST An AP, portable, upright chest radiograph is compared to study studies performed earlier the same day 09/09/2022 and correlated with chest CT dated 03/09/2022. The examination is degraded by portable technique and patient rotation. An endotracheal tube is unchanged in position. An enteric tube has been placed. The tip projects below the diaphragm over the stomach. A right internal jugular central venous catheter has been placed. The tip projects over the SVC. The heart is enlarged noting atherosclerotic calcification of the thoracic aorta. There is pulmonary vascular congestion. Chronic interstitial thickening is similar to previous. There is diffuse subpleural reticulation. Airspace opacities are present at both lung bases. There are small pleural effusions. No pneumothorax is seen. The skeletal structures are osteopenic. The bony thorax is grossly intact. IMPRESSION: 1. Lines and tubes as above. No pneumothorax is seen post central venous catheter placement. 2. Cardiomegaly with evidence of congestive failure. 3. Small pleural effusions. 4. Bibasilar opacities are unchanged. PG Care Time/CCT Total # of Minutes Spent Total Time Spent with Patient: Total time spent is greater than 50% in coordination of care (as documented) at patient's floor/unit and/or counseling patient: Coding Level of Care Code 20287 IN/OBS CONSULT LVL 5,80M Diagnoses Hyperkalemia E87.5 Acute renal failure N17.9 Acute respiratory failure with hypoxia and hypercarbia J96.01; J96.02 Endotracheally intubated Z97.8 PAD (peripheral artery disease) I73.9
[2022-09-09] MEDS ORDERED: INSULIN REGULAR 250 UNITS in SODIUM CHLORIDE 0.9% 247.5 ML IV SCH (09:30)
--- NOTE | 2022-09-09 09:44 | Palliative Care Consultation ---
Date of Consultation September 09, 2022 Assessment & Plan (1) Palliative care by specialist: Met with pt - provided overview of Palliative Medicine, a subspecialty that provides specialized medical care for people living with a serious illness by offering a focus on quality of life. Palliative Medicine is often conflated with hospice: I advised patient/family that Palliative and hospice can be partners but we are not the same. It is important to understand the difference so that we may be informed, and not afraid. Palliative Medicine works to improve QOL through reduction of symptom burden/more control over their illness, for both the patient and family. Palliative medicine clinicians are board certified, s pecially-trained and another member of the patient's medical care team. We often provide an extra layer of support because our care is based on the needs of the patient, not the prognosis; as such, it's appropriate at any age/advancing stage of a serious illness and can be provided along with curative treatment. Palliative Medicine clinicians are also trained in advanced communication methodologies, to facilitate complex discussions about advanced illness planning, which are needed to help assure that the treatment choices match the patient's goals, aka delivering Goal Concordant care. Finally, we discussed that hospice is a visiting nurse service that focuses on care delivered at the very end of life for patients with terminal illness, with life expectancy less than 6 month. (2) Advanced care planning/counseling discussion: briefly reviewed concerns about lungs failing and needing vent support, what symptoms may need mgt patient expressed preference to have better symptom mgt for now, does not want to explore ACP issues. Admits to feeling scared and anxious, asking for meds to relieve this (3) Dyspnea and respiratory abnormalities: (4) Anxiety: (5) Acute respiratory failure with hypoxia and hypercarbia: (6) Respiratory acidosis with metabolic acidosis: (7) Endotracheally intubated: (8) Acute renal failure: (9) COPD (chronic obstructive pulmonary disease): active smoker (10) Generalized weakness: Plan Diprivan for symptom mgt of anxiety/fear/air hunger per ICU protocol. I did not write any new orders. family meeting recommended with her daughters when available, likely within next 48 hr - will need a tincture of time to see how she does, ICU teams hopeful for possible extubation tomorrow if she tolerates trials - would be useful to have patient alert and engaged / able to participate in any ACP / GOC conversations whenever possible. I have updated nursing and ICU team. Thank you for allowing us to participate in the ongoing care of this patient. Please don't hesitate to call or page with any additional concerns. Dr. Dyana Ashby DNP Director, Palliative Care History of Present Illness Reason for Consultation: Renal failure, , on vent Attending Physician: Nikhil Fernandezopal History of Present Illness Tayla is a 77yo female admitted 09/08/22; she has a hx of severe COPD, chronic lower back pain, tobacco abuse, HTN, HLD, and PAD. She came to ED with c/o dyspnea. She was initially placed in BiPAP but found to have a mixed resp and metab acidosis/BMP confirmed acute renal failure . She then reported diarrhea for a week prior to presentation and so a CT Abd/pelv was done which found bilat pleural effusions, diverticulosis/no diverticulitis. Unfortunately she continued to decline with tachypnea and inc WOB leading to intubation and ICU transfer where she remains with persisting mixed respiratory and metabolic acidosis and acute renal failure and respiratory failure with hypercapnia and hypoxia. Patient intubated. She received 2 L crystalloid bolus in the ED and was started on bicarb drip. Bicarb drip on hold, fluid resuscitation with NSS continues. She is noted to be dehydrated and +leukocytosis. She is seen bedside, no family present She is awake but tired appearing. +ETT to vent but can answer simple yes/no questions She denies pain, admits to feeling SOB and anxious, she admits to being scared. When asked if she felt she needed more calming medication, she gave a thumbs up and nodded vigorously. Allergies Allergy/AdvReac Type Severity Reaction Status Date / Time No Known Allergies Allergy Verified 09/08/22 21:57 Home Medications Medication Instructions Recorded Confirmed Type acetaminophen 500 mg tablet 500 mg PO Q6H PRN Pain 08/04/19 09/08/22 History (Tylenol Extra Strength) albuterol sulfate 90 mcg/actuation 2 puff inhalation QID PRN 03/02/22 09/08/22 Rx aerosol inhaler shortness of breath or wheezing #6.7 grams ipratropium bromide 17 2 puff inhalation QID PRN 03/02/22 09/08/22 Rx mcg/actuation HFA aerosol inhaler shortness of breath or wheezing #12.9 grams atorvastatin 40 mg tablet 40 mg PO QAM 30 days #30 tabs 03/31/22 09/08/22 Rx lisinopril 10 mg tablet 30 mg PO HS #90 tabs 03/31/22 09/08/22 Rx amlodipine 5 mg tablet (Norvasc) 5 mg PO QAM 30 days #30 tabs 04/02/22 09/08/22 Rx metoprolol succinate 50 mg 100 mg PO HS 30 days #60 tabs 04/02/22 09/08/22 Rx tablet,extended release 24 hr escitalopram oxalate 5 mg tablet 5 mg PO DAILY #30 tabs 08/28/22 09/08/22 Rx (Lexapro) aspirin 81 mg tablet,delayed 81 mg PO DAILY 09/08/22 09/08/22 History release Patient History Medical History (Updated 09/09/22 @ 15:03 by Dyana Ashby DNP) Advanced care planning/counseling discussion Anxiety Dyspnea and respiratory abnormalities Fracture of distal end of right radius with malunion History of anxiety Hyperlipidemia Hypertension Osteoarthritis PAD (peripheral artery disease) Palliative care by specialist Radius fracture RT Surgical History H/O carotid endarterectomy LEFT H/O wrist surgery RT 40 YRS AGO H/O: hysterectomy History of cataract surgery RT/LEFT History of colonoscopy History of surgery on right wrist Right Distal Radius Open Reduction Internal Fixation History of tooth extraction Family History Brother Family history of diabetes mellitus Social History Smoking Status: Former smoker Age Started Using Tobacco: 13; Age Quit Using Tobacco: 77; Cigarettes Per Day: 10; Second Hand Exposure: No; Do You Dip or Chew Tobacco: No; Hx Alcohol Use: No Hx Substance Use: No Preferred Language: Japanese Communication Ability: Impaired Hearing Ability: Use of Hearing Aid 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 Beliefs That Will Affect Care: None marital status: Current Living Situation: Family current occupational status: retired How many Children do You have: 4 Feels Safe at Home: Yes Childhood Exposure to Second-Hand Smoke: Yes Diet: regular Dental Care, Regularly: Yes Physical Activity Frequency: 1-2 Times per Week Seatbelt Use: sometimes Sunscreen Use: No Assistive Devices: Cane Review of Systems Review of Systems: Other (+ETT to vent) Physical Exam Physical Exam: Patient is lying in bed, ETT to vent she is awake and alert answers simple yes/no questions, can give thumbs up/down Anxious and scared color pale coarse bilat rhonchi with diminished breath sounds +tachy abd soft, BS+ extremities with mild edema BLE Skin pale, warm Results & Data Vital Signs (Past 12 Hours) Vital Signs Temp Pulse Pulse Pulse Resp BP BP 09/09/22 06:00 36.1 C L 75 16 09/09/22 06:00 168/69 H 09/09/22 05:41 182/83 H 09/09/22 05:41 36.0 C L 76 18 09/09/22 05:34 35.9 C L 78 18 09/09/22 05:34 192/73 H 09/09/22 05:01 35.6 C L 81 28 H 09/09/22 05:01 199/102 H 09/09/22 05:00 35.6 C L 83 25 H 09/09/22 05:24 79 09/09/22 04:00 35.3 C L 77 25 H 09/09/22 04:00 149/64 H 09/09/22 03:30 35.4 C L 73 24 09/09/22 03:00 35.4 C L 79 25 H 09/09/22 02:33 155/90 H 09/09/22 02:33 91 H 24 09/09/22 02:30 95 H 24 09/09/22 03:00 113 H 09/09/22 03:26 93 H 28 H 09/09/22 00:40 88 26 H 09/09/22 04:00 09/09/22 03:03 09/09/22 02:52 35.4 C L 94 H 28 H 155/90 H 09/09/22 02:00 77 26 H 168/64 H 09/09/22 00:40 114 H 09/09/22 01:45 83 26 H 179/88 H 09/09/22 01:30 90 26 H 179/70 H 09/09/22 01:15 110 H 26 H 180/78 H 09/09/22 01:01 99 H 26 H 156/93 H 09/09/22 00:45 101 H 23 131/62 09/09/22 00:39 120 H 38 H 110/82 09/09/22 00:15 83 24 174/98 H 09/09/22 00:00 78 28 H 174/99 H 09/08/22 23:30 09/08/22 23:15 76 19 09/08/22 23:00 72 20 09/08/22 22:45 72 20 168/105 H 09/09/22 00:06 79 30 H 09/08/22 23:13 74 28 H 09/08/22 22:30 67 26 H 185/88 H 09/08/22 22:15 65 28 H 177/86 H 09/08/22 22:00 66 23 166/95 H 09/08/22 21:45 64 26 H 168/70 H 09/08/22 21:54 68 29 H 09/08/22 21:50 72 31 H 09/08/22 22:00 Pulse Ox O2 Del Method O2 Flow Rate FiO2 09/09/22 06:00 99 09/09/22 06:00 09/09/22 05:41 09/09/22 05:41 99 09/09/22 05:34 100 09/09/22 05:34 09/09/22 05:01 100 09/09/22 05:01 09/09/22 05:00 100 09/09/22 05:24 100 09/09/22 04:00 100 09/09/22 04:00 09/09/22 03:30 98 09/09/22 03:00 97 09/09/22 02:33 09/09/22 02:33 98 09/09/22 02:30 98 09/09/22 03:00 09/09/22 03:26 98 30 09/09/22 00:40 100 40 09/09/22 04:00 30 09/09/22 03:03 Mechanical Vent 09/09/22 02:52 96 Mechanical Vent 09/09/22 02:00 100 Mechanical Vent 09/09/22 00:40 09/09/22 01:45 100 Mechanical Vent 09/09/22 01:30 100 Mechanical Vent 09/09/22 01:15 100 Mechanical Vent 09/09/22 01:01 99 Mechanical Vent 09/09/22 00:45 09/09/22 00:39 09/09/22 00:15 100 BiPAP 09/09/22 00:00 93 Oxymask 4 09/08/22 23:30 92 Nasal Cannula 2 09/08/22 23:15 100 BiPAP 09/08/22 23:00 100 BiPAP 09/08/22 22:45 100 BiPAP 09/09/22 00:06 94 30 09/08/22 23:13 100 BiPAP 30 09/08/22 22:30 100 BiPAP, Nebulizer 09/08/22 22:15 100 BiPAP, Nebulizer 09/08/22 22:00 100 BiPAP, Nebulizer 09/08/22 21:45 92 Room Air 09/08/22 21:54 94 30 09/08/22 21:50 30 L BiPAP 09/08/22 22:00 100 BiPAP Laboratory Results data reviewed Diagnostic Findings data reviewed PG Care Time/CCT Total # of Minutes Spent Total Time Spent: 70 Total Time Spent with Patient: Total time spent is greater than 50% in coordination of care (as documented) at patient's floor/unit and/or counseling patient: I spent 70 minutes overall addressing this case: 10 in medical data review/discussion with referring provider(s) and/or preparation for the visit 45 in direct interaction with the patient 0 Advance Care Planning/Goals of Care discussions as detailed above in note (must be >16min) 5 in subsequent review and synthesis of assessment and plan 10 in communicating with other providers regarding the patient's case: [] [place] [address] IN/OBS CONSULT LVL 5,80M Patient Type New History Comprehensive Exam Comprehensive Medical Decision Making High Complexity Diagnoses Palliative care by specialist Z51.5 Advanced care planning/counseling discussion Z71.89 Dyspnea and respiratory abnormalities R06.00; R06.89 Anxiety F41.9 Acute respiratory failure with hypoxia and hypercarbia J96.01; J96.02 Respiratory acidosis with metabolic acidosis E87.4 Endotracheally intubated Z97.8 Acute renal failure N17.9 COPD (chronic obstructive pulmonary disease) J44.9 Generalized weakness R53.1
[2022-09-09] MEDS ORDERED: methylPREDNISolone 40 MG in SYRINGE 0 ML IV SCH (10:00)
[2022-09-09] MEDS: FAMOTIDINE 20 MG in SYRINGE 3 ML IV SCH (10:56)
[2022-09-09] MEDS: ASPIRIN 81 MG CHEW PO SCH (10:57)
[2022-09-09 11:04] LABS: Base Excess VBG -5.4 mEq/L; HCO3 VBG 20 mmol/L; Oxygen Saturation VBG 68.8 %; PCO2 VBG 38 mmHg (38-50); PO2 VBG 42 mmHg; pH VBG 7.33 (7.36-7.41)
[2022-09-09 11:27] LABS: BUN Creatinine Ratio 15.3 (10-20); Calcium 7.3 mg/dl (8.6-10.3); Est GFR (African American) 6.1 ml/min; Est GFR (Non-African American) 5.2 ml/min; Magnesium 2.3 mg/dl (1.7-2.4); Phosphorus 5.9 mg/dl (2.5-4.9)
[2022-09-09 11:55] LABS: Troponin I High Sensitivity 1429.3 pg/ml (0-14)
[2022-09-09] MEDS: INSULIN ASPART PER UNIT CHARGE SC SCH ×3 (12:07→20:22)
[2022-09-09 12:10] LABS: Estimated Average Glucose 126 mg/dl
--- NOTE | 2022-09-09 12:55 | Pharmacy Report ---
Pharmacy Glycemic Short Note 2 - Date of Service September 09, 2022 - Glycemic Short BSG Results (Last 24 hours): 09/08/22 09/08/22 09/08/22 21:30 22:53 22:56 Glucose 123 H 148 H POC Glucose POC Glucose (other) 150 H 09/09/22 09/09/22 09/09/22 01:04 03:32 04:30 Glucose 361 H* POC Glucose 425 H* 351 H* POC Glucose (other) 09/09/22 09/09/22 09/09/22 04:31 07:17 08:24 Glucose 311 H* POC Glucose 392 H* 299 H POC Glucose (other) 09/09/22 09/09/22 09/09/22 10:44 10:48 11:55 Glucose 191 H POC Glucose 205 H 149 H POC Glucose (other) OUTPATIENT ANTIDIABETIC REGIMEN: * N/A HbA1C: 6% ASSESSMENT: * Patient is a 77 year old female admitted with acute respiratory and renal failure requiring intubation. Patient has no history of diabetes and is not on diabetes medications outpatient. BSGs on arrival were 123-148mg/dL, however did receive 125mg IV methylprednisolone last night and a dose of 80mg this AM and BSGs subsequently caitlin into 400s. * Currently critically ill, intubated and sedated. NPO. Steroids weaned to 40mg IV BID today. * Received 10 units of regular as an IV bolus and 20 units of Lantus early this AM. BSGs have trended down to [phone]/dL thus far today. * Will initiate q4 Novolog severe stress scale and HS Lantus per scale depending on BSG. Reassess basal in AM. PLAN FOR INPATIENT GLYCEMIC CONTROL: * Hold outpatient oral diabetes medications * Basal insulin * Lantus 20 units SQ X 1 + HS scale depending on BSG * Bolus insulin * NovoLog per scale ACHS or Q4hrs while NPO * Goal Range: Low 110 mg/dL - High 140 mg/dL * Correction Factor: 25 mg/dL/unit * Nutritional / Prandial insulin per carb ratio of 1 unit per 9 grams CHO consumed
[2022-09-09] MEDS ORDERED: CALCIUM GLUCONATE 10% 2,000 MG in DEXTROSE 5% 50 ML IV ONE (13:24)
[2022-09-09] MEDS ORDERED: STAT IV STA (13:24)
[2022-09-09 13:42] LABS: BUN Creatinine Ratio 14.6 (10-20); Calcium 7.2 mg/dl (8.6-10.3); Creatinine Clr Calc Pharmacy 5.9 ml/min; Est GFR (African American) 5.9 ml/min; Est GFR (Non-African American) 5.1 ml/min; Magnesium 2.2 mg/dl (1.7-2.4); Phosphorus 5.8 mg/dl (2.5-4.9); Potassium 5.1 mmol/L (3.5-5.1)
--- NOTE | 2022-09-09 14:33 | Cardiology Consultation ---
Date of Consultation September 09, 2022 Assessment & Plan (1) Aortic stenosis: (2) Acute respiratory failure with hypoxia and hypercarbia: (3) Elevated troponin: (4) Hypertension: (5) PAD (peripheral artery disease): Plan ASSESSMENT/PLAN: 1. Aortic stenosis: Nonsevere. Would not account for current presentation. Discussed diagnosis with family members at bedside. Can be followed as an outpatient. No specific treatment necessary at this time. 2. Acute respiratory failure with hypoxia: She does not appear to be significantly hypervolemic. No history of CHF and volume status will be compromised by acute renal failure with oliguria. Volume status to be managed by nephrology. Dialysis has been discussed by nephrology. 3. Elevated troponin: High-sensitivity troponin continues to climb. She did not present with acute coronary syndrome based on available information. This likely represents demand ischemia. Given known peripheral arterial disease, she very well may have underlying CAD. Medical management and risk factor modification. LV systolic function normal without regional wall motion abnormalities on 09/09/2022 echo. No urgent indication for cardiac catheterization. Can continue aspirin and high intensity statin therapy if no contraindications. 4. Hypertension: Blood pressure was significantly elevated initially but more reasonably controlled today. As per critical care team. 5. Peripheral arterial disease: She has been evaluated by vascular surgery in the outpatient setting for which medical therapy was recommended. 6. Disposition: Critically ill. Patient care discussed with Dr. Watters of nephrology and Dr. Seay of the critical care team. Discussed with nursing staff. Cardiology will sign off at this time. Please feel free to call for any further questions or concerns. Highly complex medical issues. Thank you for allowing me to participate in the care of your patient. Please call for any other questions or concerns. Sincerely, Boy Galeano M.D. History of Present Illness Reason for Consultation: Aortic stenosis, CHF, Trop elevation Requesting Physician: Dr. Seay Attending Physician: Nikhil Skaggs History of Present Illness Ms. Alvarez is a 77-year-old female with a history significant for aortic stenosis, COPD, hypertension, dyslipidemia, and peripheral arterial disease (managed by Dr. Barros). She was admitted on 09/09/2022 after presenting with shortness of breath. She was unable to provide any history for today's consultation as she is currently on sedation while mechanically ventilated. History was obtained by speaking with her 3 daughters, 1 son, reviewing records, and discussing with nursing staff and critical care physician. Her son, with whom she lives with, states that on 09/05/2022 night after eating she was coughing up phlegm and complained of abdominal pain. She appeared diaphoretic. On 09/07/2022, she appeared to have abnormal breathing while sleeping. He called her while he was at work on 09/08/2022 and she reported that she felt somewhat better using an inhaler, but daughters question if she is able to use the inhaler correctly. Later that evening, she became more acutely short of breath. Her son states that he tried to have her seek medical attention on 09/07/2022 but she refused. Apparently, prior to being admitted to the ICU, she was short of breath and was placed on BiPAP but began vomiting in the mask and was therefore intubated for airway protection. She was noted to have acute renal failure with a creatinine of 7.25, when it was 0.95 on 03/11/2022. Nephrology was consulted. While here, she has not required pressor support. She actually was hypertensive on presentation. Family states that ever since COVID-19 infection in February 2022, she has been much more sedentary. Review of systems: Unable to obtain due to mechanical ventilation. Family history: Noncontributory. Social history: She quit smoking in March 2022 after approximately 60 pack years. No significant alcohol. She has been living with her son, Loi, for approximately 7 months. Has 3 daughters and 1 son. Estranged from her . All of her children were present at the bedside. Allergies Allergy/AdvReac Type Severity Reaction Status Date / Time No Known Allergies Allergy Verified 09/08/22 21:57 Home Medications Medication Instructions Recorded Confirmed Type acetaminophen 500 mg tablet 500 mg PO Q6H PRN Pain 08/04/19 09/08/22 History (Tylenol Extra Strength) albuterol sulfate 90 mcg/actuation 2 puff inhalation QID PRN 03/02/22 09/08/22 Rx aerosol inhaler shortness of breath or wheezing #6.7 grams ipratropium bromide 17 2 puff inhalation QID PRN 03/02/22 09/08/22 Rx mcg/actuation HFA aerosol inhaler shortness of breath or wheezing #12.9 grams atorvastatin 40 mg tablet 40 mg PO QAM 30 days #30 tabs 03/31/22 09/08/22 Rx lisinopril 10 mg tablet 30 mg PO HS #90 tabs 03/31/22 09/08/22 Rx amlodipine 5 mg tablet (Norvasc) 5 mg PO QAM 30 days #30 tabs 04/02/22 09/08/22 Rx metoprolol succinate 50 mg 100 mg PO HS 30 days #60 tabs 04/02/22 09/08/22 Rx tablet,extended release 24 hr escitalopram oxalate 5 mg tablet 5 mg PO DAILY #30 tabs 08/28/22 09/08/22 Rx (Lexapro) aspirin 81 mg tablet,delayed 81 mg PO DAILY 09/08/22 09/08/22 History release Patient History Medical History (Updated 09/09/22 @ 18:45 by Magdy Galeano MD) Advanced care planning/counseling discussion Anxiety Aortic stenosis Dyspnea and respiratory abnormalities Fracture of distal end of right radius with malunion History of anxiety Hyperlipidemia Hypertension Osteoarthritis PAD (peripheral artery disease) Palliative care by specialist Radius fracture RT Surgical History H/O carotid endarterectomy LEFT H/O wrist surgery RT 40 YRS AGO H/O: hysterectomy History of cataract surgery RT/LEFT History of colonoscopy History of surgery on right wrist Right Distal Radius Open Reduction Internal Fixation History of tooth extraction Family History Brother Family history of diabetes mellitus Social History Smoking Status: Former smoker Age Started Using Tobacco: 13; Age Quit Using Tobacco: 77; Cigarettes Per Day: 10; Second Hand Exposure: No; Do You Dip or Chew Tobacco: No; Hx Alcohol Use: No Hx Substance Use: No Preferred Language: Ivorian Communication Ability: Unable Hearing Ability: Use of Hearing Aid Optical Scientist Required: No Beliefs That Will Affect Care: None marital status: Current Living Situation: Family current occupational status: retired How many Children do You have: 4 Feels Safe at Home: Yes Childhood Exposure to Second-Hand Smoke: Yes Diet: regular Dental Care, Regularly: Yes Physical Activity Frequency: 1-2 Times per Week Seatbelt Use: sometimes Sunscreen Use: No Assistive Devices: Cane Physical Exam Physical Exam: Gen.: Sedated on mechanical ventilator. Neck: No appreciated JVD. Cardiac: No ventricular heave. Regular. Normal S1-S2. 2/6 early to mid peaking systolic ejection murmur. Pulmonary: Clear to anterior auscultation bilaterally without wheezes, rales, or rhonchi. Abdomen: Soft, nondistended, with hypoactive bowel sounds. No bruits noted. Extremities: 2+ radial pulses bilaterally. No edema or cyanosis. Results & Data Vital Signs (Past 12 Hours) Vital Signs Temp Pulse Pulse Resp BP BP Pulse Ox 09/09/22 13:30 37.6 C H 77 21 98 09/09/22 13:15 37.5 C 78 32 H 97 09/09/22 13:00 37.5 C 80 18 97 09/09/22 13:00 156/68 H 09/09/22 12:45 37.6 C H 79 18 98 09/09/22 12:30 37.7 C H 78 18 98 09/09/22 12:15 37.6 C H 81 18 98 09/09/22 12:01 37.6 C H 84 18 98 09/09/22 12:01 148/59 H 09/09/22 12:00 37.6 C H 82 19 98 09/09/22 11:45 37.6 C H 84 18 98 09/09/22 11:30 37.6 C H 83 18 97 09/09/22 11:15 37.6 C H 87 18 96 09/09/22 12:00 09/09/22 11:00 37.6 C H 82 22 97 09/09/22 11:00 137/65 09/09/22 10:42 37.6 C H 87 38 H 97 09/09/22 10:42 125/64 09/09/22 10:00 37.5 C 83 29 H 96 09/09/22 09:00 37.2 C 87 27 H 96 09/09/22 09:00 145/60 H 09/09/22 08:00 36.8 C 83 16 96 09/09/22 08:00 150/63 H 09/09/22 07:00 36.4 C L 81 16 98 09/09/22 07:00 148/70 H 09/09/22 08:00 09/09/22 11:13 18 09/09/22 10:35 84 30 H 97 09/09/22 07:20 77 18 95 09/09/22 08:00 09/09/22 06:00 36.1 C L 75 16 99 09/09/22 06:00 168/69 H 09/09/22 05:41 182/83 H 09/09/22 05:41 36.0 C L 76 18 99 09/09/22 05:34 35.9 C L 78 18 100 09/09/22 05:34 192/73 H 09/09/22 05:01 35.6 C L 81 28 H 100 09/09/22 05:01 199/102 H 09/09/22 05:00 35.6 C L 83 25 H 100 09/09/22 05:24 79 100 09/09/22 04:00 35.3 C L 77 25 H 100 09/09/22 04:00 149/64 H 09/09/22 03:30 35.4 C L 73 24 98 09/09/22 03:00 35.4 C L 79 25 H 97 09/09/22 02:33 155/90 H 09/09/22 02:33 91 H 24 98 09/09/22 03:00 113 H 09/09/22 03:26 93 H 28 H 98 09/09/22 04:00 09/09/22 03:03 09/09/22 02:52 35.4 C L 94 H 28 H 155/90 H 96 O2 Del Method FiO2 09/09/22 13:30 09/09/22 13:15 09/09/22 13:00 09/09/22 13:00 09/09/22 12:45 09/09/22 12:30 09/09/22 12:15 09/09/22 12:01 09/09/22 12:01 09/09/22 12:00 09/09/22 11:45 09/09/22 11:30 09/09/22 11:15 09/09/22 12:00 30 09/09/22 11:00 09/09/22 11:00 09/09/22 10:42 09/09/22 10:42 09/09/22 10:00 09/09/22 09:00 09/09/22 09:00 09/09/22 08:00 09/09/22 08:00 09/09/22 07:00 09/09/22 07:00 09/09/22 08:00 Mechanical Vent 09/09/22 11:13 09/09/22 10:35 30 09/09/22 07:20 30 09/09/22 08:00 30 09/09/22 06:00 09/09/22 06:00 09/09/22 05:41 09/09/22 05:41 09/09/22 05:34 09/09/22 05:34 09/09/22 05:01 09/09/22 05:01 09/09/22 05:00 09/09/22 05:24 09/09/22 04:00 09/09/22 04:00 09/09/22 03:30 09/09/22 03:00 09/09/22 02:33 09/09/22 02:33 09/09/22 03:00 09/09/22 03:26 30 09/09/22 04:00 30 09/09/22 03:03 Mechanical Vent 30 09/09/22 02:52 Mechanical Vent 30 Intake & Output 09/07/22 09/08/22 09/09/22 09/10/22 06:59 06:59 06:59 06:59 Intake Total 3289.967 / 3289.967 1192.290 / 1192.290 Output Total 125 / 125 120 / 120 Balance 3164.967 / 3164.967 1072.290 / 1072.290 Weight 132 lb 11.492 oz 132 lb 11.492 oz Laboratory Results Laboratory Results - last 24 hr 09/08/22 09/08/22 09/08/22 21:30 21:30 21:30 WBC 17.75 H RBC 4.10 L Hgb 12.0 POC Hgb Hct 35.5 L POC Hct MCV 86.6 MCH 29.3 MCHC 33.8 RDW Std Deviation 45.9 RDW Coeff of Angela 14.5 Plt Count 262 MPV 10.3 Immature Gran % (Auto) 0.5 Neut % (Auto) 83.6 Lymph % (Auto) 7.4 [place] % (Auto) 8.3 Eos % (Auto) 0.0 Baso % (Auto) 0.2 Neut # (Auto) 14.84 H Lymph # (Auto) 1.32 [place] # (Auto) 1.47 H Eos # (Auto) 0.00 Baso # (Auto) 0.03 Immature Gran # (Auto) 0.09 PT 11.2 INR 1.0 APTT 25.3 PTT Ratio 0.9 Sample Site POC pH POC pCO2 POC pO2 POC HCO3 POC Base Excess ABG pH (Temp Correct) ABG pCO2 (Temp Corrct POC ABG pO2 at Pt Temp POC ABG O2 Sat Txe Test VBG pH VBG pCO2 VBG pO2 VBG HCO3 VBG O2 Saturation VBG Base Excess O2 Delivery Device POC Sodium Sodium 125 L POC Potassium Potassium 6.4 H* POC Chloride Chloride 92 L Carbon Dioxide 16 L POC Total CO2 Anion Gap 17 H POC Anion Gap POC BUN BUN 112 H Creatinine 7.25 H* POC Creatinine Est Cr Clr Drug Dosing Not Reportable Est GFR ( Amer) 5.7 Est GFR (Non-Af Amer) 4.9 BUN/Creatinine Ratio 15.4 Glucose 123 H POC Glucose POC Glucose (other) Estimat Average Glucose Hemoglobin A1c Lactate Calcium 8.3 L POC Ioniz Calcium Kwaku Phosphorus Magnesium Total Bilirubin 0.5 AST 49 H ALT 63 H Alkaline Phosphatase 91 Total Creatine Kinase Troponin I High Sens 67.1 H* Total Protein 7.0 Albumin 3.6 Globulin 3.4 Albumin/Globulin Ratio 1.1 Procalcitonin Urine Color Urine Appearance Urine pH Ur Specific [place] Urine Protein Urine Glucose (UA) Urine Ketones Urine Blood Urine Nitrite Urine Bilirubin Urine Urobilinogen Ur Leukocyte Esterase Urine WBC (Auto) Urine RBC (Auto) U Hyaline Cast (Auto) U Epithel Cells (Auto) Urine Bacteria (Auto) Nasal Screen MRSA (PCR) SARS-CoV-2 (PCR) Influenza Type A (PCR) Influenza Type B (PCR) RSV (RT-PCR) 09/08/22 09/08/22 09/08/22 21:30 21:44 22:53 WBC RBC Hgb POC Hgb 12.2 Hct POC Hct 36 L MCV MCH MCHC RDW Std Deviation RDW Coeff of Angela Plt Count MPV Immature Gran % (Auto) Neut % (Auto) Lymph % (Auto) [place] % (Auto) Eos % (Auto) Baso % (Auto) Neut # (Auto) Lymph # (Auto) [place] # (Auto) Eos # (Auto) Baso # (Auto) Immature Gran # (Auto) PT INR APTT PTT Ratio Sample Site POC pH POC pCO2 POC pO2 POC HCO3 POC Base Excess ABG pH (Temp Correct) ABG pCO2 (Temp Corrct POC ABG pO2 at Pt Temp POC ABG O2 Sat [place] Test VBG pH VBG pCO2 VBG pO2 VBG HCO3 VBG O2 Saturation VBG Base Excess O2 Delivery Device POC Sodium 124 L Sodium POC Potassium 6.7 H* Potassium POC Chloride 97 L Chloride Carbon Dioxide POC Total CO2 19 L Anion Gap POC Anion Gap 16.0 POC BUN 135 H* BUN Creatinine POC Creatinine 8.2 H* Est Cr Clr Drug Dosing Est GFR ( Amer) Est GFR (Non-Af Amer) BUN/Creatinine Ratio Glucose POC Glucose POC Glucose (other) 150 H Estimat Average Glucose Hemoglobin A1c Lactate Calcium POC Ioniz Calcium Kwaku 1.02 L Phosphorus Magnesium Total Bilirubin AST ALT Alkaline Phosphatase Total Creatine Kinase Troponin I High Sens Total Protein Albumin Globulin Albumin/Globulin Ratio Procalcitonin 0.65 H Urine Color Urine Appearance Urine pH Ur Specific [place] Urine Protein Urine Glucose (UA) Urine Ketones Urine Blood Urine Nitrite Urine Bilirubin Urine Urobilinogen Ur Leukocyte Esterase Urine WBC (Auto) Urine RBC (Auto) U Hyaline Cast (Auto) U Epithel Cells (Auto) Urine Bacteria (Auto) Nasal Screen MRSA (PCR) SARS-CoV-2 (PCR) NEGATIVE Influenza Type A (PCR) Negative Influenza Type B (PCR) Negative RSV (RT-PCR) Negative 09/08/22 09/08/22 09/08/22 22:56 22:56 22:56 WBC RBC Hgb POC Hgb Hct POC Hct MCV MCH MCHC RDW Std Deviation RDW Coeff of Angela Plt Count MPV Immature Gran % (Auto) Neut % (Auto) Lymph % (Auto) [place] % (Auto) Eos % (Auto) Baso % (Auto) Neut # (Auto) Lymph # (Auto) [place] # (Auto) Eos # (Auto) Baso # (Auto) Immature Gran # (Auto) PT INR APTT PTT Ratio Sample Site POC pH POC pCO2 POC pO2 POC HCO3 POC Base Excess ABG pH (Temp Correct) ABG pCO2 (Temp Corrct POC ABG pO2 at Pt Temp POC ABG O2 Sat [place] Test VBG pH 7.22 L VBG pCO2 46 VBG pO2 45 VBG HCO3 19 VBG O2 Saturation 72.1 VBG Base Excess -8.8 O2 Delivery Device POC Sodium Sodium 125 L POC Potassium Potassium 6.4 H* POC Chloride Chloride 93 L Carbon Dioxide 18 L POC Total CO2 Anion Gap 14 H POC Anion Gap POC BUN BUN 110 H Creatinine 7.18 H* POC Creatinine Est Cr Clr Drug Dosing Not Reportable Est GFR ( Amer) 5.7 Est GFR (Non-Af Amer) 4.9 BUN/Creatinine Ratio 15.3 Glucose 148 H POC Glucose POC Glucose (other) Estimat Average Glucose Hemoglobin A1c Lactate 0.9 Calcium 8.0 L POC Ioniz Calcium [place] Phosphorus Magnesium Total Bilirubin AST ALT Alkaline Phosphatase Total Creatine Kinase 147 Troponin I High Sens Total Protein Albumin Globulin Albumin/Globulin Ratio Procalcitonin Urine Color Urine Appearance Urine pH Ur Specific [place] Urine Protein Urine Glucose (UA) Urine Ketones Urine Blood Urine Nitrite Urine Bilirubin Urine Urobilinogen Ur Leukocyte Esterase Urine WBC (Auto) Urine RBC (Auto) U Hyaline Cast (Auto) U Epithel Cells (Auto) Urine Bacteria (Auto) Nasal Screen MRSA (PCR) SARS-CoV-2 (PCR) Influenza Type A (PCR) Influenza Type B (PCR) RSV (RT-PCR) 09/09/22 09/09/22 09/09/22 00:26 01:03 01:04 WBC RBC Hgb POC Hgb 9.9 L Hct POC Hct 29 L MCV MCH MCHC RDW Std Deviation RDW Coeff of Angela Plt Count MPV Immature Gran % (Auto) Neut % (Auto) Lymph % (Auto) [place] % (Auto) Eos % (Auto) Baso % (Auto) Neut # (Auto) Lymph # (Auto) [place] # (Auto) Eos # (Auto) Baso # (Auto) Immature Gran # (Auto) PT INR APTT PTT Ratio Sample Site POC pH 7.21 L POC pCO2 43 POC pO2 109 H POC HCO3 17 L POC Base Excess -11.0 L ABG pH (Temp Correct) ABG pCO2 (Temp Corrct POC ABG pO2 at Pt Temp POC ABG O2 Sat 97.0 H Tex Test VBG pH VBG pCO2 VBG pO2 VBG HCO3 VBG O2 Saturation VBG Base Excess O2 Delivery Device POC Sodium 125 L Sodium POC Potassium 4.9 Potassium POC Chloride Chloride Carbon Dioxide POC Total CO2 18 L Anion Gap POC Anion Gap POC BUN BUN Creatinine POC Creatinine Est Cr Clr Drug Dosing Est GFR ( Amer) Est GFR (Non-Af Amer) BUN/Creatinine Ratio Glucose POC Glucose 425 H* POC Glucose (other) Estimat Average Glucose Hemoglobin A1c Lactate Calcium POC Ioniz Calcium [place] Phosphorus Magnesium Total Bilirubin AST ALT Alkaline Phosphatase Total Creatine Kinase Troponin I High Sens Total Protein Albumin Globulin Albumin/Globulin Ratio Procalcitonin Urine Color Urine Appearance Urine pH Ur Specific [place] Urine Protein Urine Glucose (UA) Urine Ketones Urine Blood Urine Nitrite Urine Bilirubin Urine Urobilinogen Ur Leukocyte Esterase Urine WBC (Auto) Urine RBC (Auto) U Hyaline Cast (Auto) U Epithel Cells (Auto) Urine Bacteria (Auto) Nasal Screen MRSA (PCR) Negative SARS-CoV-2 (PCR) Influenza Type A (PCR) Influenza Type B (PCR) RSV (RT-PCR) 09/09/22 09/09/22 09/09/22 03:32 03:32 03:32 WBC RBC Hgb POC Hgb Hct POC Hct MCV MCH MCHC RDW Std Deviation RDW Coeff of Angela Plt Count MPV Immature Gran % (Auto) Neut % (Auto) Lymph % (Auto) [place] % (Auto) Eos % (Auto) Baso % (Auto) Neut # (Auto) Lymph # (Auto) [place] # (Auto) Eos # (Auto) Baso # (Auto) Immature Gran # (Auto) PT INR APTT PTT Ratio Sample Site POC pH POC pCO2 POC pO2 POC HCO3 POC Base Excess ABG pH (Temp Correct) ABG pCO2 (Temp Corrct POC ABG pO2 at Pt Temp POC ABG O2 Sat Tex Test VBG pH 7.42 H VBG pCO2 31 L VBG pO2 42 VBG HCO3 20 VBG O2 Saturation 78.6 VBG Base Excess -3.4 O2 Delivery Device POC Sodium Sodium 128 L POC Potassium Potassium 4.8 D POC Chloride Chloride 92 L Carbon Dioxide 20 L POC Total CO2 Anion Gap 16 H POC Anion Gap POC BUN BUN 105 H Creatinine 6.57 H* D POC Creatinine Est Cr Clr Drug Dosing 6.2 Est GFR ( Amer) 6.4 Est GFR (Non-Af Amer) 5.5 BUN/Creatinine Ratio 16.0 Glucose 361 H* POC Glucose POC Glucose (other) Estimat Average Glucose Hemoglobin A1c Lactate 2.6 H* Calcium 7.4 L POC Ioniz Calcium [place] Phosphorus Magnesium 2.5 H Total Bilirubin AST ALT Alkaline Phosphatase Total Creatine Kinase Troponin I High Sens 139.9 H* D Total Protein Albumin Globulin Albumin/Globulin Ratio Procalcitonin Urine Color Urine Appearance Urine pH Ur Specific [place] Urine Protein Urine Glucose (UA) Urine Ketones Urine Blood Urine Nitrite Urine Bilirubin Urine Urobilinogen Ur Leukocyte Esterase Urine WBC (Auto) Urine RBC (Auto) U Hyaline Cast (Auto) U Epithel Cells (Auto) Urine Bacteria (Auto) Nasal Screen MRSA (PCR) SARS-CoV-2 (PCR) Influenza Type A (PCR) Influenza Type B (PCR) RSV (RT-PCR) 09/09/22 09/09/22 09/09/22 04:30 04:31 05:32 WBC RBC Hgb POC Hgb 10.9 L Hct POC Hct 32 L MCV MCH MCHC RDW Std Deviation RDW Coeff of Angela Plt Count MPV Immature Gran % (Auto) Neut % (Auto) Lymph % (Auto) [place] % (Auto) Eos % (Auto) Baso % (Auto) Neut # (Auto) Lymph # (Auto) [place] # (Auto) Eos # (Auto) Baso # (Auto) Immature Gran # (Auto) PT INR APTT PTT Ratio Sample Site L Brachial POC pH 7.49 H POC pCO2 22 L POC pO2 102 H POC HCO3 16 L POC Base Excess -7.0 ABG pH (Temp Correct) 7.504 H* ABG pCO2 (Temp Corrct 21 L POC ABG pO2 at Pt Temp 95 POC ABG O2 Sat 98.0 H Tex Test Pass VBG pH VBG pCO2 VBG pO2 VBG HCO3 VBG O2 Saturation VBG Base Excess O2 Delivery Device Ventilator POC Sodium 125 L Sodium POC Potassium 4.6 Potassium POC Chloride Chloride Carbon Dioxide POC Total CO2 17 L Anion Gap POC Anion Gap POC BUN BUN Creatinine POC Creatinine Est Cr Clr Drug Dosing Est GFR ( Amer) Est GFR (Non-Af Amer) BUN/Creatinine Ratio Glucose POC Glucose 351 H* 392 H* POC Glucose (other) Estimat Average Glucose Hemoglobin A1c Lactate Calcium POC Ioniz Calcium [place] Phosphorus Magnesium Total Bilirubin AST ALT Alkaline Phosphatase Total Creatine Kinase Troponin I High Sens Total Protein Albumin Globulin Albumin/Globulin Ratio Procalcitonin Urine Color Urine Appearance Urine pH Ur Specific [place] Urine Protein Urine Glucose (UA) Urine Ketones Urine Blood Urine Nitrite Urine Bilirubin Urine Urobilinogen Ur Leukocyte Esterase Urine WBC (Auto) Urine RBC (Auto) U Hyaline Cast (Auto) U Epithel Cells (Auto) Urine Bacteria (Auto) Nasal Screen MRSA (PCR) SARS-CoV-2 (PCR) Influenza Type A (PCR) Influenza Type B (PCR) RSV (RT-PCR) 09/09/22 09/09/22 09/09/22 07:17 07:17 07:17 WBC RBC Hgb POC Hgb Hct POC Hct MCV MCH MCHC RDW Std Deviation RDW Coeff of Angela Plt Count MPV Immature Gran % (Auto) Neut % (Auto) Lymph % (Auto) [place] % (Auto) Eos % (Auto) Baso % (Auto) Neut # (Auto) Lymph # (Auto) [place] # (Auto) Eos # (Auto) Baso # (Auto) Immature Gran # (Auto) PT INR APTT PTT Ratio Sample Site POC pH POC pCO2 POC pO2 POC HCO3 POC Base Excess ABG pH (Temp Correct) ABG pCO2 (Temp Corrct POC ABG pO2 at Pt Temp POC ABG O2 Sat Tex Test VBG pH 7.33 L VBG pCO2 39 VBG pO2 46 VBG HCO3 21 VBG O2 Saturation 75.5 VBG Base Excess -4.9 O2 Delivery Device POC Sodium Sodium 129 L POC Potassium Potassium 4.8 POC Chloride Chloride 94 L Carbon Dioxide 19 L POC Total CO2 Anion Gap 16 H POC Anion Gap POC BUN BUN 105 H Creatinine 6.27 H* D POC Creatinine Est Cr Clr Drug Dosing 6.5 Est GFR ( Amer) 6.7 Est GFR (Non-Af Amer) 5.8 BUN/Creatinine Ratio 16.7 Glucose 311 H* POC Glucose POC Glucose (other) Estimat Average Glucose Hemoglobin A1c Lactate 2.2 H* Calcium 7.2 L POC Ioniz Calcium [place] Phosphorus Magnesium Total Bilirubin AST ALT Alkaline Phosphatase Total Creatine Kinase Troponin I High Sens Total Protein Albumin Globulin Albumin/Globulin Ratio Procalcitonin Urine Color Urine Appearance Urine pH Ur Specific [place] Urine Protein Urine Glucose (UA) Urine Ketones Urine Blood Urine Nitrite Urine Bilirubin Urine Urobilinogen Ur Leukocyte Esterase Urine WBC (Auto) Urine RBC (Auto) U Hyaline Cast (Auto) U Epithel Cells (Auto) Urine Bacteria (Auto) Nasal Screen MRSA (PCR) SARS-CoV-2 (PCR) Influenza Type A (PCR) Influenza Type B (PCR) RSV (RT-PCR) 09/09/22 09/09/22 09/09/22 08:24 09:02 10:44 WBC RBC Hgb POC Hgb Hct POC Hct MCV MCH MCHC RDW Std Deviation RDW Coeff of Angela Plt Count MPV Immature Gran % (Auto) Neut % (Auto) Lymph % (Auto) [place] % (Auto) Eos % (Auto) Baso % (Auto) Neut # (Auto) Lymph # (Auto) [place] # (Auto) Eos # (Auto) Baso # (Auto) Immature Gran # (Auto) PT INR APTT PTT Ratio Sample Site POC pH POC pCO2 POC pO2 POC HCO3 POC Base Excess ABG pH (Temp Correct) ABG pCO2 (Temp Corrct POC ABG pO2 at Pt Temp POC ABG O2 Sat Tex Test VBG pH VBG pCO2 VBG pO2 VBG HCO3 VBG O2 Saturation VBG Base Excess O2 Delivery Device POC Sodium Sodium POC Potassium Potassium POC Chloride Chloride Carbon Dioxide POC Total CO2 Anion Gap POC Anion Gap POC BUN BUN Creatinine POC Creatinine Est Cr Clr Drug Dosing Est GFR ( Amer) Est GFR (Non-Af Amer) BUN/Creatinine Ratio Glucose POC Glucose 299 H 205 H POC Glucose (other) Estimat Average Glucose Hemoglobin A1c Lactate Calcium POC Ioniz Calcium [place] Phosphorus Magnesium Total Bilirubin AST ALT Alkaline Phosphatase Total Creatine Kinase Troponin I High Sens 1087.9 H* D Total Protein Albumin Globulin Albumin/Globulin Ratio Procalcitonin Urine Color Urine Appearance Urine pH Ur Specific [place] Urine Protein Urine Glucose (UA) Urine Ketones Urine Blood Urine Nitrite Urine Bilirubin Urine Urobilinogen Ur Leukocyte Esterase Urine WBC (Auto) Urine RBC (Auto) U Hyaline Cast (Auto) U Epithel Cells (Auto) Urine Bacteria (Auto) Nasal Screen MRSA (PCR) SARS-CoV-2 (PCR) Influenza Type A (PCR) Influenza Type B (PCR) RSV (RT-PCR) 09/09/22 09/09/22 09/09/22 10:48 10:48 10:48 WBC RBC Hgb POC Hgb Hct POC Hct MCV MCH MCHC RDW Std Deviation RDW Coeff of Angela Plt Count MPV Immature Gran % (Auto) Neut % (Auto) Lymph % (Auto) [place] % (Auto) Eos % (Auto) Baso % (Auto) Neut # (Auto) Lymph # (Auto) [place] # (Auto) Eos # (Auto) Baso # (Auto) Immature Gran # (Auto) PT INR APTT PTT Ratio Sample Site POC pH POC pCO2 POC pO2 POC HCO3 POC Base Excess ABG pH (Temp Correct) ABG pCO2 (Temp Corrct POC ABG pO2 at Pt Temp POC ABG O2 Sat Tex Test VBG pH 7.33 L VBG pCO2 38 VBG pO2 42 VBG HCO3 20 VBG O2 Saturation 68.8 VBG Base Excess -5.4 O2 Delivery Device POC Sodium Sodium 131 L POC Potassium Potassium 5.0 POC Chloride Chloride 96 L Carbon Dioxide 20 L POC Total CO2 Anion Gap 15 H POC Anion Gap POC BUN BUN 105 H Creatinine 6.85 H* D POC Creatinine Est Cr Clr Drug Dosing 6.0 Est GFR ( Amer) 6.1 Est GFR (Non-Af Amer) 5.2 BUN/Creatinine Ratio 15.3 Glucose 191 H POC Glucose POC Glucose (other) Estimat Average Glucose 126 Hemoglobin A1c 6.0 H Lactate Calcium 7.3 L POC Ioniz Calcium [place] Phosphorus 5.9 H Magnesium 2.3 Total Bilirubin AST ALT Alkaline Phosphatase Total Creatine Kinase Troponin I High Sens 1429.3 H* D Total Protein Albumin Globulin Albumin/Globulin Ratio Procalcitonin Urine Color Urine Appearance Urine pH Ur Specific [place] Urine Protein Urine Glucose (UA) Urine Ketones Urine Blood Urine Nitrite Urine Bilirubin Urine Urobilinogen Ur Leukocyte Esterase Urine WBC (Auto) Urine RBC (Auto) U Hyaline Cast (Auto) U Epithel Cells (Auto) Urine Bacteria (Auto) Nasal Screen MRSA (PCR) SARS-CoV-2 (PCR) Influenza Type A (PCR) Influenza Type B (PCR) RSV (RT-PCR) 09/09/22 09/09/22 09/09/22 11:55 13:10 15:36 WBC RBC Hgb POC Hgb Hct POC Hct MCV MCH MCHC RDW Std Deviation RDW Coeff of Angela Plt Count MPV Immature Gran % (Auto) Neut % (Auto) Lymph % (Auto) [place] % (Auto) Eos % (Auto) Baso % (Auto) Neut # (Auto) Lymph # (Auto) [place] # (Auto) Eos # (Auto) Baso # (Auto) Immature Gran # (Auto) PT INR APTT PTT Ratio Sample Site POC pH POC pCO2 POC pO2 POC HCO3 POC Base Excess ABG pH (Temp Correct) ABG pCO2 (Temp Corrct POC ABG pO2 at Pt Temp POC ABG O2 Sat Tex Test VBG pH VBG pCO2 VBG pO2 VBG HCO3 VBG O2 Saturation VBG Base Excess O2 Delivery Device POC Sodium Sodium 130 L POC Potassium Potassium 5.1 POC Chloride Chloride 96 L Carbon Dioxide 20 L POC Total CO2 Anion Gap 14 H POC Anion Gap POC BUN BUN 102 H Creatinine 6.99 H* POC Creatinine Est Cr Clr Drug Dosing 5.9 Est GFR ( Amer) 5.9 Est GFR (Non-Af Amer) 5.1 BUN/Creatinine Ratio 14.6 Glucose 114 H POC Glucose 149 H 101 H POC Glucose (other) Estimat Average Glucose Hemoglobin A1c Lactate Calcium 7.2 L POC Ioniz Calcium Kwaku Phosphorus 5.8 H Magnesium 2.2 Total Bilirubin AST ALT Alkaline Phosphatase Total Creatine Kinase Troponin I High Sens Total Protein Albumin Globulin Albumin/Globulin Ratio Procalcitonin Urine Color Urine Appearance Urine pH Ur Specific [place] Urine Protein Urine Glucose (UA) Urine Ketones Urine Blood Urine Nitrite Urine Bilirubin Urine Urobilinogen Ur Leukocyte Esterase Urine WBC (Auto) Urine RBC (Auto) U Hyaline Cast (Auto) U Epithel Cells (Auto) Urine Bacteria (Auto) Nasal Screen MRSA (PCR) SARS-CoV-2 (PCR) Influenza Type A (PCR) Influenza Type B (PCR) RSV (RT-PCR) 09/09/22 Unknown WBC RBC Hgb POC Hgb Hct POC Hct MCV MCH MCHC RDW Std Deviation RDW Coeff of Angela Plt Count MPV Immature Gran % (Auto) Neut % (Auto) Lymph % (Auto) [place] % (Auto) Eos % (Auto) Baso % (Auto) Neut # (Auto) Lymph # (Auto) [place] # (Auto) Eos # (Auto) Baso # (Auto) Immature Gran # (Auto) PT INR APTT PTT Ratio Sample Site POC pH POC pCO2 POC pO2 POC HCO3 POC Base Excess ABG pH (Temp Correct) ABG pCO2 (Temp Corrct POC ABG pO2 at Pt Temp POC ABG O2 Sat Tex Test VBG pH VBG pCO2 VBG pO2 VBG HCO3 VBG O2 Saturation VBG Base Excess O2 Delivery Device POC Sodium Sodium POC Potassium Potassium POC Chloride Chloride Carbon Dioxide POC Total CO2 Anion Gap POC Anion Gap POC BUN BUN Creatinine POC Creatinine Est Cr Clr Drug Dosing Est GFR ( Amer) Est GFR (Non-Af Amer) BUN/Creatinine Ratio Glucose POC Glucose POC Glucose (other) Estimat Average Glucose Hemoglobin A1c Lactate Calcium POC Ioniz Calcium Kw[place] Phosphorus Magnesium Total Bilirubin AST ALT Alkaline Phosphatase Total Creatine Kinase Troponin I High Sens Total Protein Albumin Globulin Albumin/Globulin Ratio Procalcitonin Urine Color Yellow Urine Appearance Cloudy A Urine pH 5.5 Ur Specific [place] 1.015 Urine Protein 3+ H Urine Glucose (UA) Negative Urine Ketones Negative Urine Blood 3+ H Urine Nitrite Negative Urine Bilirubin Negative Urine Urobilinogen Negative Ur Leukocyte Esterase Trace H Urine WBC (Auto) 5-10 H Urine RBC (Auto) 0-4 U Hyaline Cast (Auto) 1-5 U Epithel Cells (Auto) >30 H Urine Bacteria (Auto) Negative Nasal Screen MRSA (PCR) SARS-CoV-2 (PCR) Influenza Type A (PCR) Influenza Type B (PCR) RSV (RT-PCR) Diagnostic Findings Critical care consult, nephrology consult, palliative care consult and history and physical report reviewed. Echo 09/09/22: 1. Normal left ventricular size and systolic function. EF 65-70%. No regional wall motion abnormalities. Severe asymmetric hypertrophy involving the anteroseptum and otherwise moderate concentric left ventricular hypertrophy. 2. Mild left atrial dilation. 3. Moderate aortic stenosis with mild regurgitation. 4. Severe mitral annular calcification with mild mitral regurgitation. 5. Moderate pulmonary hypertension. Estimated RVSP 54 mmHg. 6. Technically difficult study. 7. Compared to prior study on 03/09/2022, aortic transvalvular velocity/gradient was higher on previous study, which could be related to technique. Moderate pulmonary hypertension notable on current study. Labs reviewed notable for acute renal failure, elevated high-sensitivity troponin, mild elevation of transaminase levels, leukocytosis, and normal hemoglobin. Telemetry personally reviewed: Sinus rhythm. No arrhythmia. ECGs personally reviewed: ECG 09/08/2022 at 2101: Sinus rhythm 63 bpm. Possible anterior infarct. ECG 09/09/2022 at 0015: Sinus rhythm [address] abnormality. Possible anterior infarct. ECG 09/09/2022 at 4:34 AM: Sinus rhythm 77 bpm. Possible anterior infarct. Prolonged QT. Chest x-ray 09/09/2022: No pneumothorax. Pulmonary vascular congestion. Small pleural effusions. Bibasilar opacities. CT abdomen/pelvis 09/08/2022: Bilateral pleural effusions with associated compressive atelectasis. Cardiomegaly with mitral and aortic valvular calcifications. Diverticulosis without evidence of diverticulitis per radiology. Medications Administered Current Inpatient Medications Albuterol (Albut/Ipratrop 3mg/0.5mg Neb 3 Ml Vial) 3 ml NEB Q4R NOBLE; Protocol Stop: 10/09/22 06:59 Last Admin: 09/09/22 14:43 Dose: 3 ml Amlodipine Besylate (Amlodipine Besylate 5 Mg Tab) 5 mg PO QAM [facility] Stop: 10/09/22 08:59 Last Admin: 09/09/22 08:34 Dose: 5 mg Aspirin (Aspirin 81 Mg Chew) 81 mg PO DAILY [facility] Stop: 10/09/22 09:59 Last Admin: 09/09/22 10:57 Dose: 81 mg Atorvastatin Calcium (Atorvastatin 40 Mg Tab) 40 mg PO QAM [facility] Stop: 10/09/22 08:59 Last Admin: 09/09/22 08:34 Dose: 40 mg Dextrose (Dextrose 50% 50 Ml Syringe) 25 - 50 ml IV UD PRN; Protocol PRN Reason: Hypoglycemia Protocol Stop: 10/09/22 04:52 Fentanyl Citrate (Fentanyl Bolus From Bag) 50 mcg IV Q60M PRN PRN Reason: Pain or Agitation Stop: 09/23/22 00:24 Glucagon (Glucagon For Inj 1 Mg Vial) 1 mg SQ UD PRN; Protocol PRN Reason: Hypoglycemia Protocol Stop: 10/09/22 04:52 Glucose (Glucose 10 Tab/Tube) 4 - 8 tab PO UD PRN; Protocol PRN Reason: Hypoglycemia Treatment Stop: 10/09/22 04:52 Glucose (Glucose 40% Gel 15 Gm Tube) 15 - 30 gm PO UD PRN; Protocol PRN Reason: Hypoglycemia Protocol Stop: 10/09/22 04:52 Heparin Sodium (Porcine) (Heparin Sod 5,000 Unit/0.5 Ml Vial) 5,000 units SQ Q12 [facility] Stop: 10/09/22 08:59 Last Admin: 09/09/22 08:34 Dose: 5,000 units Fentanyl Citrate (Fentanyl Citrate) 2,500 mcg in 250 mls @ 0 mls/hr IV .Q0M NOBLE; Protocol Stop: 09/23/22 00:29 Last Titration: 09/09/22 07:07 Dose: 0 mcg/hr, 0 mls/hr Azithromycin 500 mg/ Dextrose 255 mls @ 125 mls/hr IV Q24H [facility] Stop: 09/16/22 02:59 Last Infusion: 09/09/22 05:39 Dose: Infused Ceftriaxone Sodium 2,000 mg/ (Dextrose) 70 mls @ 100 mls/hr IV Q24H [facility]; Protocol Stop: 09/16/22 02:59 Last Infusion: 09/09/22 04:18 Dose: Infused Propofol (Diprivan) 1,000 mg in 100 mls @ 5.418 mls/hr IV .[id number] [facility]; Protocol Stop: 09/12/22 05:59 Last Admin: 09/09/22 18:15 Dose: 15 mcg/kg/min, 5.4 mls/hr Famotidine 20 mg/ Syringe 5 mls @ 2.5 mls/min IV DAILY [facility] Stop: 10/09/22 09:59 Last Admin: 09/09/22 10:56 Dose: 2.5 mls/min Methylprednisolone 40 mg/ (Syringe) 0.64 mls @ 1.5 mls/min IV BID [facility] Stop: 10/09/22 20:59 Sodium Bicarbonate 150 meq/ (Sterile Water) 1,150 mls @ 100 mls/hr IV .[id number] [facility] Stop: 10/09/22 16:44 Last Admin: 09/09/22 18:15 Dose: 100 mls/hr Insulin Aspart (Insulin Aspart Per Unit Charge) 0 units SC Q4 [facility] Stop: 10/09/22 12:04 Last Admin: 09/09/22 15:38 Dose: Not Given Insulin Glargine (Lantus Per Unit Charge) 0 units SC HS [facility]; Protocol Stop: 10/09/22 20:59 Miscellaneous (Carbohydrates For Hypoglycemia ) 15 - 30 gm PO UD PRN PRN Reason: Hypoglycemia Protocol Stop: 10/09/22 04:52 Miscellaneous Information (Pharmacy Glycemic Mgmt Consult) 1 each N/A UD PRN PRN Reason: Consult Stop: 10/09/22 09:26 Propofol (Propofol Bolus From Bag) 20 mg IV Q5M PRN PRN Reason: Sedation Stop: 09/12/22 05:46 Last Admin: 09/09/22 05:55 Dose: 20 mg PG Care Time/CCT Total # of Minutes Spent Total Time Spent with Patient: Total time spent is greater than 50% in coordination of care (as documented) at patient's floor/unit and/or counseling patient: Coding Level of Care Code 46196 INT INP/OBS CARE 3/75MIN Diagnoses Aortic stenosis I35.0 Acute respiratory failure with hypoxia and hypercarbia J96.01; J96.02 Elevated troponin R77.8 Hypertension I10 PAD (peripheral artery disease) I73.9
--- NOTE | 2022-09-09 14:33 | XCELERA ---
[id number] \\[id number]
--- NOTE | 2022-09-09 16:37 | Communication Note ---
Date of Service: September 09, 2022 Patient was reevaluated throughout the day. She remains on minimal vent settings. Her urine output has decreased throughout the course of today. Her creatinine and potassium are increasing. I had numerous discussions with the patient's daughters regarding CODE STATUS and goals of care. I also discussed the care with the palliative care provider Dyana Ashby, railroad brake repairer Dr. Galeano and police and fire dispatcher Dr. Watters Right now the plan of action is to follow her labs and readdress the possibility of urgent hemodialysis tomorrow. She remains hemodynamically stable. The family is discussing the possibility of a DNR status given the patient's overall frailty. They note that she has been very lethargic and more confused over the past week or 2. I reviewed the echo results which revealed a preserved LVEF with mild to moderate pulmonary hypertension noted. I will initiate a low-dose bicarbonate drip given the patient's ongoing acidemia and worsening hyperkalemia. Coding Level of Care Code 12927 CRITICAL CARE EA ADD 30M Time Spent (min) 41
[2022-09-09] MEDS: SODIUM BICARBONATE 8.4% 150 MEQ in WATER, STERILE 1,000 ML IV SCH (18:15)
--- NOTE | 2022-09-09 19:39 | Billing Data ---
Date of Service September 09, 2022 Coding Level of Care Code 71625 CRITICAL CARE
--- NOTE | 2022-09-09 20:11 | Communication Note ---
Date of Service: September 09, 2022 Had a discussion with the patient's 3 daughters at the bedside. They were updated on her current clinical condition. At this time, the patient's daughters would like to make the patient DNR in the event of cardiac arrest. We will proceed with medical management and current plan of care. Coding Level of Care Code None
[2022-09-09] MEDS ORDERED: METOPROLOL SUCC 50MG EXT REL TAB PO SCH (21:00)
[2022-09-09] MEDS ORDERED: LANTUS PER UNIT CHARGE SC SCH (21:00)
[2022-09-09] MEDS: methylPREDNISolone 40 MG in SYRINGE 0 ML IV SCH (21:38)
[2022-09-10] MEDS: INSULIN ASPART PER UNIT CHARGE SC SCH ×3 (00:45→08:28)
[2022-09-10] MEDS: ALBUT/IPRATROP 3MG/0.5MG NEB 3 ML VIAL NEB SCH ×3 (02:20→10:07)
[2022-09-10] MEDS: AZITHROMYCIN 500 MG in DEXTROSE 5% 250 ML IV SCH (03:24)
[2022-09-10] MEDS: cefTRIAXone SODIUM 2,000 MG in DEXTROSE 5% 50 ML IV SCH (03:24)
[2022-09-10 03:51] LABS: Basophils # (auto) 0.01 K/uL (0-0.2); Basophils % (auto) 0.1 %; Hematocrit (blood only) 27.3 % (37.0-47.0); Hemoglobin 9.6 g/dl (12.0-16.0); Immature Granulocytes # (auto) 0.05 K/uL (0.01-0.20); Immature Granulocytes % (auto) 0.5 %; Lymphocytes # (auto) 0.55 K/uL (1.2-3.4); Lymphocytes % (auto) 5.9 %; Mean Corpuscular Hemoglobin 29.4 pg (25.0-34.0); Mean Corpuscular Hgb Conc 35.2 g/dL (32.0-36.0); Mean Corpuscular Volume 83.5 fL (80.0-100.0); Mean Platelet Volume 10.5 fL (9.4-12.4); Monocytes # (auto) 0.43 K/uL (0.11-0.59); Monocytes % (auto) 4.6 %; Neutrophils # (auto) 8.23 K/uL (1.40-6.50); Neutrophils % (auto) 88.9 %; Platelet Count 183 K/uL (130-400); RDW Coefficient of Variation 14.5 % (11.5-14.5); RDW Standard Deviation 44.2 fL (36.4-46.3); Red Blood Count 3.27 M/uL (4.20-5.40); White Blood Count 9.27 K/ul (4.8-10.8)
[2022-09-10 04:08] LABS: Albumin Level 2.7 gm/dl (3.4-5.0); Bilirubin Direct 0.1 mg/dl (0-0.2); Bilirubin,Total 0.3 mg/dl (0.2-1.0); Total Protein 5.3 gm/dl (6.0-8.3)
[2022-09-10 05:16] LABS: iSTAT Allen Test Pass; iSTAT Art Bld Gas pCO2 Correct 31 mmHg (35-46); iSTAT Arterial Blood Gas HCO3 23 meg/L (19-24); iSTAT Arterial Blood Gas pCO2 31 mmHg (35-46); iSTAT Arterial Blood Gas pH 7.47 (7.35-7.45); iSTAT Arterial Blood Gas pO2 76 mmHg (80-95); iSTAT Arterial Blood Gas pO2 C 77; iSTAT Carbon Dioxide 24 mmol/L (24-31); iSTAT FiO2 25 %; iSTAT Hematocrit 24 % (37-47); iSTAT Hemoglobin 8.2 g/dl (12.0-16.0); iSTAT Potassium 4.5 mmol/L (3.3-5.0); iSTAT Site L Brachial; iSTAT Sodium 126 mmol/L (135-144)
[2022-09-10] MEDS: SODIUM BICARBONATE 8.4% 150 MEQ in WATER, STERILE 1,000 ML IV SCH (06:07)
[2022-09-10] MEDS: propofoL 1,000 MG/100 ML VIAL IV SCH (06:07)
[2022-09-10 06:08] LABS: BUN Creatinine Ratio 14.1 (10-20); Calcium 7.7 mg/dl (8.6-10.3); Creatinine Clr Calc Pharmacy 5.4 ml/min; Est GFR (African American) 5.4 ml/min; Est GFR (Non-African American) 4.6 ml/min; Magnesium 2.2 mg/dl (1.7-2.4)
[2022-09-10] MEDS: FAMOTIDINE 20 MG in SYRINGE 3 ML IV SCH (08:28)
[2022-09-10] MEDS: ASPIRIN 81 MG CHEW PO SCH (08:29)
[2022-09-10] MEDS: HEPARIN SOD 5,000 UNIT/0.5 ML VIAL SQ SCH (08:30)
[2022-09-10] MEDS: methylPREDNISolone 40 MG in SYRINGE 0 ML IV SCH (08:30)
--- NOTE | 2022-09-10 09:18 | Critical Care Progress Note ---
Date of Service September 10, 2022 Assessment & Plan (1) Renal failure (ARF), acute on chronic: (2) Aortic stenosis: (3) Acute respiratory failure with hypoxia and hypercarbia: (4) Aspiration pneumonitis: Plan Her mental status is improved and she is currently following commands off s edation. Ventilator requirements are minimal although she remains mildly tachypneic on a spontaneous breathing trial likely due to metabolic acidosis. She has ongoing nonoliguric renal failure. Family is discussing the possibility of hemodialysis. They understand that her overall prognosis is poor. They feel that she would likely not want aggressive measures, but are not certain with how to proceed. Appreciate palliative care input at this time. We will await family's decision regarding reintubation if the patient fails extubation. We will also await their decision regarding hemodialysis. Otherwise continue routine care with Solu-Medrol, broad-spectrum antibiotics and judicious use of fluids. Continue bicarbonate drip. Patient does have aortic stenosis noted on echo. Troponins elevated likely secondary to demand ischemia. Appreciate cardiology input. Continue Pepcid for GI prophylaxis. Continue heparin for DVT prophylaxis. She is now a DNR per the family's request. CRITICAL CARE TIME - I have personally spent 41 minutes of critical care time in the direct management of this patient. This is a life/limb threatening event. This includes time spent evaluating patient, direct bedside care, chart review, placing orders, interpretation of diagnostic studies, discussion with consultants, patient, and family members, as well as other required patient management activi ties. This time is exclusive of all separately billable procedures, and teaching time and separate from and in addition to any other critical care service time. Admission and Anticipated Discharge Date Admission Date: September 09, 2022 Subjective Patient seen and examined. Currently off sedation and following simple commands. Urine output remains poor overnight. Hemodynamically stable. Remains on the ventilator. Review of Systems Review of Systems: Unobtainable due to endotracheal tube Physical Exam Constitutional: + frail appearing and + mechanically ventilated Eyes: PERRL, conjunctivae normal, anicteric sclerae ENMT: external ear and nose normal, oropharynx normal Neck: trachea midline, no thyromegaly Respiratory: Coarse lung sounds on the ventilator. Mild tachypnea. Cardiovascular: Rate/Rhythm: regular rate and regular rhythm Heart Sounds: normal S1 and normal S2 Vessels: no JVD Extremities: no edema Gastrointestinal (Abdomen): normal bowel sounds, soft, nontender, no hepatosplenomegaly Musculoskeletal: no cyanosis or clubbing, extremities motor strength 5/5 Skin: no rashes, warm and dry Neurologic: Alert and awake. Moves all limbs spontaneously. No focal deficits. Psychiatric: Alert and awake. Genitourinary: Indwelling Ray catheter placed. Urine is concentrated, dark yellow Results & Data Results & Data Vital Signs (Past 12 Hours) Vital Signs Temp Pulse Pulse Resp BP Pulse Ox O2 Del Method 09/10/22 07:26 84 22 95 09/10/22 07:21 83 19 97 09/10/22 06:00 37.1 C 94 H 25 H 09/10/22 06:00 162/77 H 09/10/22 05:45 91 H 19 93 09/10/22 05:30 37.1 C 85 18 97 09/10/22 05:15 37.1 C 85 18 97 09/10/22 05:01 37.1 C 90 20 98 09/10/22 05:01 149/68 H 09/10/22 05:00 37.1 C 89 18 98 09/10/22 04:45 37.1 C 87 18 97 09/10/22 04:30 37.1 C 86 18 97 09/10/22 04:15 37.1 C 82 19 96 09/10/22 04:00 37.0 C 86 18 97 09/10/22 04:00 94/66 L 09/10/22 03:45 36.9 C 86 18 97 09/10/22 05:12 18 09/10/22 03:30 36.9 C 83 21 96 09/10/22 03:15 36.8 C 85 18 94 09/10/22 03:00 36.9 C 78 18 97 09/10/22 03:00 150/57 H 09/10/22 02:45 36.9 C 76 18 97 09/10/22 02:30 36.9 C 79 18 97 09/10/22 02:15 36.9 C 74 18 98 09/10/22 02:00 37.0 C 75 18 98 09/10/22 01:45 37.0 C 76 18 97 09/10/22 01:30 37.0 C 75 18 98 09/10/22 01:15 37.0 C 74 18 98 09/10/22 01:00 37.0 C 75 18 98 09/10/22 01:00 156/57 H 09/10/22 00:45 37.1 C 82 18 98 09/10/22 00:30 37.1 C 77 18 97 09/10/22 00:15 37.1 C 77 19 99 09/10/22 00:00 37.1 C 76 18 98 09/09/22 23:45 37.2 C 75 18 98 09/09/22 23:30 37.2 C 77 18 98 09/09/22 23:15 37.2 C 78 18 97 09/09/22 23:00 37.2 C 83 18 96 09/09/22 23:00 160/60 H 09/09/22 22:55 152/60 H 09/09/22 22:55 37.2 C 84 24 98 09/10/22 03:40 09/10/22 02:31 76 18 98 09/10/22 02:31 79 18 98 Mechanical Vent 09/10/22 00:00 09/10/22 00:00 73 09/09/22 22:45 37.2 C 76 18 96 09/09/22 22:30 37.2 C 77 18 96 09/09/22 22:15 37.2 C 79 18 98 09/09/22 22:00 37.2 C 77 18 98 09/09/22 21:45 37.2 C 79 26 H 98 09/09/22 21:30 37.3 C 79 18 98 09/09/22 21:15 37.4 C 77 18 99 09/09/22 21:59 81 22 97 FiO2 09/10/22 07:26 25 09/10/22 07:21 25 09/10/22 06:00 09/10/22 06:00 09/10/22 05:45 09/10/22 05:30 09/10/22 05:15 09/10/22 05:01 09/10/22 05:01 09/10/22 05:00 09/10/22 04:45 09/10/22 04:30 09/10/22 04:15 09/10/22 04:00 09/10/22 04:00 09/10/22 03:45 09/10/22 05:12 25 09/10/22 03:30 09/10/22 03:15 09/10/22 03:00 09/10/22 03:00 09/10/22 02:45 09/10/22 02:30 09/10/22 02:15 09/10/22 02:00 09/10/22 01:45 09/10/22 01:30 09/10/22 01:15 09/10/22 01:00 09/10/22 01:00 09/10/22 00:45 09/10/22 00:30 09/10/22 00:15 09/10/22 00:00 09/09/22 23:45 09/09/22 23:30 09/09/22 23:15 09/09/22 23:00 09/09/22 23:00 09/09/22 22:55 09/09/22 22:55 09/10/22 03:40 25 09/10/22 02:31 25 09/10/22 02:31 25 09/10/22 00:00 09/10/22 00:00 09/09/22 22:45 09/09/22 22:30 09/09/22 22:15 09/09/22 22:00 09/09/22 21:45 09/09/22 21:30 09/09/22 21:15 09/09/22 21:59 30 Coding Level of Care Code 12994 CRITICAL CARE 1ST 30-74M Diagnoses Renal failure (ARF), acute on chronic N17.9; N18.9 Aortic stenosis I35.0 Acute respiratory failure with hypoxia and hypercarbia J96.01; J96.02 Aspiration pneumonitis J69.0 Time Spent (min) 41
[2022-09-10] MEDS ORDERED: RACEPINEPHRINE 2.25% NEBU SOLN 0.5 ML VIAL ONE (09:59)
[2022-09-10] MEDS ORDERED: fentaNYL citrate PF 100 MCG/2 ML VIAL ONE (10:28)
[2022-09-10] MEDS ORDERED: LORazepam 0.5 MG TAB PO PRN (10:33)
[2022-09-10] MEDS ORDERED: LORazepam 2 MG/1 ML VIAL IV PRN ×2 (10:33→10:38)
[2022-09-10] MEDS ORDERED: HYDROmorphone BOLUS from BAG IV PRN (10:33)
[2022-09-10] MEDS ORDERED: ONDANSETRON 4 MG OD TAB SL PRN (10:33)
[2022-09-10] MEDS ORDERED: ONDANSETRON INJ 2 MG/ML 2 ML VIAL IV PRN (10:33)
[2022-09-10] MEDS ORDERED: HALOPERIDOL LACTATE 5 MG/ML 1 ML VIAL IV PRN (10:38)
[2022-09-10] MEDS ORDERED: GLYCOPYRROLATE 0.2 MG/ML VIAL IV PRN (10:39)
[2022-09-10] MEDS ORDERED: HYDROmorphone/NSS 100 MG/100 ML BAG IV SCH (10:45)
--- NOTE | 2022-09-10 10:50 | Palliative Care Progress Note ---
Date of Service September 10, 2022 at 10am Assessment & Plan (1) Palliative care by specialist: (2) Advanced care planning/counseling discussion: Plan: Met with trs x3 and son in ICU w/Dr Seay x 30 min for ACP/GOC Patient steadily declining. Family in agreement for no reintubation in accordance with pt know wishes and they reaffirm her DNR/DNI status. They state they want to honor her wishes and make her more comfortable. They note she is in an end of life process, has been declining for months and they have been watching her suffer. They know she is afraid of suffocating at EOL due to her lung disease. They would like everything possible done to relieve her air hunger, anxiety and agitation. We spoke about comfort care and the dying process: Discussed changes pt may move through in the dying process including but not limited to sleeping more, disorientation when awake, restlessness, diminished senses/inability to respond to stimulus although ability to be aware of them remains intact longer, changes in body temperatures, skin changes/mottling/cyanosis, respiratory pattern changes, oral secretions. Family verbalized understanding. The goal is to assure a peaceful . Comfort Orders: Since she is nephropathic, I advised I will use Dilaudid infusion 0.2mg per hour and can give 0.2mg IV q15min prn dyspnea, air hunger, pain. Keep a fan on and circulating air: movement of air across the face aids in the relief of dyspnea and air hunger along with the use of opioids for relief of cancer related and terminal dyspnea. Agitation/Nausea/Vomiting: Haldol Intensol 2mg IV Q4h prn nausea, agitation, hallucination Anxiety: Ativan IV 1mg PO q4h prn, if no relief switch to IV formulation Patient is transitioning from a process of living to a process of dying. Patient/family are well aware of this, and they have elected/desire a plan of care focused on comfort/hospice and symptom management. Please stop non essential/non comfort focused meds and interventions Please stop monitors/liberate and free the patient of leads, monitor alarms, etc; watch the pt and assess for comfort; vital signs will not be "normal" during the dying process, therefore constant vigilance of the same will not aid in the goal of assuring comfort. (3) Dyspnea and respiratory abnormalities: (4) Acute exacerbation of chronic obstructive pulmonary disease: (5) Renal failure (ARF), acute on chronic: (6) Aortic stenosis: (7) Respiratory acidosis with metabolic acidosis: (8) Generalized weakness: (9) Agitation: (10) Encounter for end of life care: Plan * Patient family have elected transition to comfort care in accordance with her wishes. * She is profoundly breathless with air hunger, a dilaudid infusion has been started. She was more comfortable and peaceful appearing when I was leaving the ICU at 1110am. * Family aware she will not survive this admission. She has terminal lung failure. * I have updated nursing, primary team & ICU attendings Thank you for allowing us to participate in the ongoing care of this patient. Please don't hesitate to call or page with any additional concerns. Dr. Dyana Ashby DNP Director, Palliative Care Admission and Anticipated Discharge Date Admission Date: September 09, 2022 Subjective pt extubated earlier this morning but has been escalating in resp failure since, she does not want reintubation. Her family is at bedside. They and pt desire a more comfort focused plan of care. She is dyspneic, tachypneic and awake/alert to self but confused/restless, trying to get OOB Review of Systems Review of Systems: All systems reviewed & are unremarkable except as noted in Subjective Physical Exam Physical Exam: Agitated, restless and alert to self, will track movement around the room +severe resp distress, use of accessory muscles and air hunger noted lungs diminished abd soft, BS + strength intact but diminished overall color pale, flushed cheeks, cool skin, nailbeds sl dusky Results & Data Vital Signs (Past 12 Hours) Vital Signs Temp Pulse Pulse Pulse Resp BP Pulse Ox 09/10/22 10:08 119 H 26 H 09/10/22 10:04 123 H 28 H 94 09/10/22 09:00 37.3 C 99 H 26 H 91 09/10/22 09:00 179/74 H 09/10/22 08:01 176/59 H 09/10/22 08:01 37.1 C 97 H 29 H 94 09/10/22 08:00 37.1 C 93 H 21 93 09/10/22 07:01 36.9 C 98 H 27 H 95 09/10/22 07:01 153/62 H 09/10/22 07:00 37.0 C 84 16 97 09/10/22 08:00 09/10/22 08:00 09/10/22 07:26 84 22 95 09/10/22 07:21 83 19 97 09/10/22 06:00 37.1 C 94 H 25 H 09/10/22 06:00 162/77 H 09/10/22 05:45 91 H 19 93 09/10/22 05:30 37.1 C 85 18 97 09/10/22 05:15 37.1 C 85 18 97 09/10/22 05:01 37.1 C 90 20 98 09/10/22 05:01 149/68 H 09/10/22 05:00 37.1 C 89 18 98 09/10/22 04:45 37.1 C 87 18 97 09/10/22 04:30 37.1 C 86 18 97 09/10/22 04:15 37.1 C 82 19 96 09/10/22 04:00 37.0 C 86 18 97 09/10/22 04:00 94/66 L 09/10/22 03:45 36.9 C 86 18 97 09/10/22 05:12 18 09/10/22 03:30 36.9 C 83 21 96 09/10/22 03:15 36.8 C 85 18 94 09/10/22 03:00 36.9 C 78 18 97 09/10/22 03:00 150/57 H 09/10/22 02:45 36.9 C 76 18 97 09/10/22 02:30 36.9 C 79 18 97 09/10/22 02:15 36.9 C 74 18 98 09/10/22 02:00 37.0 C 75 18 98 09/10/22 01:45 37.0 C 76 18 97 09/10/22 01:30 37.0 C 75 18 98 09/10/22 01:15 37.0 C 74 18 98 09/10/22 01:00 37.0 C 75 18 98 09/10/22 01:00 156/57 H 09/10/22 00:45 37.1 C 82 18 98 09/10/22 00:30 37.1 C 77 18 97 09/10/22 00:15 37.1 C 77 19 99 09/10/22 00:00 37.1 C 76 18 98 09/09/22 23:45 37.2 C 75 18 98 09/09/22 23:30 37.2 C 77 18 98 09/09/22 23:15 37.2 C 78 18 97 09/09/22 23:00 37.2 C 83 18 96 09/09/22 23:00 160/60 H 09/09/22 22:55 152/60 H 09/09/22 22:55 37.2 C 84 24 98 09/10/22 03:40 09/10/22 02:31 76 18 98 09/10/22 02:31 79 18 98 09/10/22 00:00 09/10/22 00:00 73 09/09/22 22:45 37.2 C 76 18 96 O2 Del Method O2 Flow Rate FiO2 09/10/22 10:08 Nasal Cannula 6 09/10/22 10:04 Nasal Cannula 6 09/10/22 09:00 09/10/22 09:00 09/10/22 08:01 09/10/22 08:01 09/10/22 08:00 09/10/22 07:01 09/10/22 07:01 09/10/22 07:00 09/10/22 08:00 Mechanical Vent 25 09/10/22 08:00 25 09/10/22 07:26 25 09/10/22 07:21 25 09/10/22 06:00 09/10/22 06:00 09/10/22 05:45 09/10/22 05:30 09/10/22 05:15 09/10/22 05:01 09/10/22 05:01 09/10/22 05:00 09/10/22 04:45 09/10/22 04:30 09/10/22 04:15 09/10/22 04:00 09/10/22 04:00 09/10/22 03:45 09/10/22 05:12 25 09/10/22 03:30 09/10/22 03:15 09/10/22 03:00 09/10/22 03:00 09/10/22 02:45 09/10/22 02:30 09/10/22 02:15 09/10/22 02:00 09/10/22 01:45 09/10/22 01:30 09/10/22 01:15 09/10/22 01:00 09/10/22 01:00 09/10/22 00:45 09/10/22 00:30 09/10/22 00:15 09/10/22 00:00 09/09/22 23:45 09/09/22 23:30 09/09/22 23:15 09/09/22 23:00 09/09/22 23:00 09/09/22 22:55 09/09/22 22:55 09/10/22 03:40 25 09/10/22 02:31 25 09/10/22 02:31 Mechanical Vent 25 09/10/22 00:00 25 09/10/22 00:00 09/09/22 22:45 Laboratory Results reviewed Diagnostic Findings reviewed PG Care Time/CCT Total # of Minutes Spent Total Time Spent: 95 Total Time Spent with Patient: Total time spent is greater than 50% in coordination of care (as documented) at patient's floor/unit and/or counseling patient: I spent 95 minutes overall addressing this case: 15 in medical data review/discussion with referring provider(s) and/or preparation for the visit 20 in direct interaction with the patient 30 Advance Care Planning/Goals of Care discussions as detailed above in note (must be >16min) 10 in subsequent review and synthesis of assessment and plan 20 in communicating with other providers regarding the patient's case: [] Prolonged Care Time Prolonged Care Time: Yes Advanced Care Planning 10595 Advanced Care Planning 30 Min C[place] [address] SUB INP/OBS CARE 3/50MIN Patient Type Established Medical Decision Making High Complexity Diagnoses Palliative care by specialist Z51.5 Advanced care planning/counseling discussion Z71.89 Dyspnea and respiratory abnormalities R06.00; R06.89 Acute exacerbation of chronic obstructive pulmonary disease J44.1 Renal failure (ARF), acute on chronic N17.9; N18.9 Aortic stenosis I35.0 Respiratory acidosis with metabolic acidosis E87.4 Generalized weakness R53.1 Agitation R45.1 Encounter for end of life care Z51.5 Additional Codes Prolonged Care Time - Prolonged Care Time: Yes ([id number]) Advanced Care Planning - 50565 Advanced Care Planning 30 Min: 36391 Advanced Care Planning 30 Min ([id number])
[2022-09-10] MEDS: HYDROmorphone BOLUS from BAG IV PRN ×2 (10:56→11:31)
--- NOTE | 2022-09-10 12:31 | Nephrology Progress Note ---
Date of Service September 10, 2022 Assessment & Plan (1) Acute renal failure: Plan: Findings of advanced chronic kidney disease and more subacute or chronic underlying process (including imaging, hyperphosphatemia, and notable azotemia) were reviewed with patient's son this morning at the bedside. Potential role for dialysis was discussed. Follow up goals of care discussion opted to focus on comfort measures only and transition to hospice. Medications appropriately dosed for kidney function. Dilaudid PRN for air hunger and comfort. (2) Acute respiratory failure with hypoxia and hypercarbia: Plan: Extubated per goals of care. Plan of care was discussed with Dr. Seay this AM. (3) PAD (peripheral artery disease): Plan: CT demonstrating some evidence of renovascular disease. Notable calcific vascular disease. Admission and Anticipated Discharge Date Admission Date: September 09, 2022 Shanta Bourne was seen and evaluated in the ICU this morning with her son at the bedside. I returned for follow up evaluation post extubation. Family remains close. I discussed the plan of care with Dr. Seay and Dr. Ashby. Review of Systems Review of Systems: Unobtainable due to reduced consciousness Physical Exam Constitutional: well developed and + ill appearing; no acute distress Eyes: + anicteric sclerae Neck: normal visual inspection and trachea midline Respiratory: normal respiratory effort and + tachypneic Auscultation: lungs clear to auscultation bilaterally, + diminished lung sounds and + rales Cardiovascular: Rate/Rhythm: + tachycardic Heart Sounds: normal S1, normal S2 and + murmur Extremities: no edema Musculoskeletal: Extremities: no cyanosis and no clubbing Skin: + turgor decreased; no jaundice Neurologic: Motor/Sensory: no tremor and no asterixis Psychiatric: Orientation: alert Results & Data Vital Signs (Past 12 Hours) Vital Signs Temp Pulse Pulse Pulse Resp BP Pulse Ox 09/10/22 10:08 119 H 26 H 09/10/22 10:04 123 H 28 H 94 09/10/22 09:00 37.3 C 99 H 26 H 91 09/10/22 09:00 179/74 H 09/10/22 08:01 176/59 H 09/10/22 08:01 37.1 C 97 H 29 H 94 09/10/22 08:00 37.1 C 93 H 21 93 09/10/22 07:01 36.9 C 98 H 27 H 95 09/10/22 07:01 153/62 H 09/10/22 07:00 37.0 C 84 16 97 09/10/22 08:00 09/10/22 08:00 09/10/22 07:26 84 22 95 09/10/22 07:21 83 19 97 09/10/22 06:00 37.1 C 94 H 25 H 09/10/22 06:00 162/77 H 09/10/22 05:45 91 H 19 93 09/10/22 05:30 37.1 C 85 18 97 09/10/22 05:15 37.1 C 85 18 97 09/10/22 05:01 37.1 C 90 20 98 09/10/22 05:01 149/68 H 09/10/22 05:00 37.1 C 89 18 98 09/10/22 04:45 37.1 C 87 18 97 09/10/22 04:30 37.1 C 86 18 97 09/10/22 04:15 37.1 C 82 19 96 09/10/22 04:00 37.0 C 86 18 97 09/10/22 04:00 94/66 L 09/10/22 03:45 36.9 C 86 18 97 09/10/22 05:12 18 09/10/22 03:30 36.9 C 83 21 96 09/10/22 03:15 36.8 C 85 18 94 09/10/22 03:00 36.9 C 78 18 97 09/10/22 03:00 150/57 H 09/10/22 02:45 36.9 C 76 18 97 09/10/22 02:30 36.9 C 79 18 97 09/10/22 02:15 36.9 C 74 18 98 09/10/22 02:00 37.0 C 75 18 98 09/10/22 01:45 37.0 C 76 18 97 09/10/22 01:30 37.0 C 75 18 98 09/10/22 01:15 37.0 C 74 18 98 09/10/22 01:00 37.0 C 75 18 98 09/10/22 01:00 156/57 H 09/10/22 00:45 37.1 C 82 18 98 09/10/22 00:30 37.1 C 77 18 97 09/10/22 03:40 09/10/22 02:31 76 18 98 09/10/22 02:31 79 18 98 O2 Del Method O2 Flow Rate FiO2 09/10/22 10:08 Nasal Cannula 6 09/10/22 10:04 Nasal Cannula 6 09/10/22 09:00 09/10/22 09:00 09/10/22 08:01 09/10/22 08:01 09/10/22 08:00 09/10/22 07:01 09/10/22 07:01 09/10/22 07:00 09/10/22 08:00 Mechanical Vent 25 09/10/22 08:00 25 09/10/22 07:26 25 09/10/22 07:21 25 09/10/22 06:00 09/10/22 06:00 09/10/22 05:45 09/10/22 05:30 09/10/22 05:15 09/10/22 05:01 09/10/22 05:01 09/10/22 05:00 09/10/22 04:45 09/10/22 04:30 09/10/22 04:15 09/10/22 04:00 09/10/22 04:00 09/10/22 03:45 09/10/22 05:12 25 09/10/22 03:30 09/10/22 03:15 09/10/22 03:00 09/10/22 03:00 09/10/22 02:45 09/10/22 02:30 09/10/22 02:15 09/10/22 02:00 09/10/22 01:45 09/10/22 01:30 09/10/22 01:15 09/10/22 01:00 09/10/22 01:00 09/10/22 00:45 09/10/22 00:30 09/10/22 03:40 25 09/10/22 02:31 25 09/10/22 02:31 Mechanical Vent 25 Laboratory Results Laboratory Results - last 24 hr 09/09/22 09/09/22 09/09/22 13:10 15:36 20:00 WBC RBC Hgb POC Hgb Hct POC Hct MCV MCH MCHC RDW Std Deviation RDW Coeff of Angela Plt Count MPV Immature Gran % (Auto) Neut % (Auto) Lymph % (Auto) Hubbard % (Auto) Eos % (Auto) Baso % (Auto) Neut # (Auto) Lymph # (Auto) Hubbard # (Auto) Eos # (Auto) Baso # (Auto) Immature Gran # (Auto) Sample Site POC pH POC pCO2 POC pO2 POC HCO3 POC Total CO2 POC Base Excess ABG pH (Temp Correct) ABG pCO2 (Temp Corrct POC ABG pO2 at Pt Temp POC ABG O2 Sat Tex Test O2 Delivery Device POC O2 Rate POC FiO2 Tidal Volume PEEP POC Sodium Sodium 130 L POC Potassium Potassium 5.1 Chloride 96 L Carbon Dioxide 20 L Anion Gap 14 H BUN 102 H Creatinine 6.99 H* Est Cr Clr Drug Dosing 5.9 Est GFR ( Amer) 5.9 Est GFR (Non-Af Amer) 5.1 BUN/Creatinine Ratio 14.6 Glucose 114 H POC Glucose 101 H 121 H Calcium 7.2 L Phosphorus 5.8 H Magnesium 2.2 Total Bilirubin Direct Bilirubin AST ALT Alkaline Phosphatase Troponin I High Sens Total Protein Albumin 09/10/22 09/10/22 09/10/22 00:46 03:28 03:29 WBC RBC Hgb POC Hgb Hct POC Hct MCV MCH MCHC RDW Std Deviation RDW Coeff of Angela Plt Count MPV Immature Gran % (Auto) Neut % (Auto) Lymph % (Auto) Hubbard % (Auto) Eos % (Auto) Baso % (Auto) Neut # (Auto) Lymph # (Auto) Hubbard # (Auto) Eos # (Auto) Baso # (Auto) Immature Gran # (Auto) Sample Site POC pH POC pCO2 POC pO2 POC HCO3 POC Total CO2 POC Base Excess ABG pH (Temp Correct) ABG pCO2 (Temp Corrct POC ABG pO2 at Pt Temp POC ABG O2 Sat Tex Test O2 Delivery Device POC O2 Rate POC FiO2 Tidal Volume PEEP POC Sodium Sodium 131 L POC Potassium Potassium 5.0 Chloride 93 L Carbon Dioxide 20 L Anion Gap 18 H BUN 107 H Creatinine 7.59 H* D Est Cr Clr Drug Dosing 5.4 Est GFR ( Amer) 5.4 Est GFR (Non-Af Amer) 4.6 BUN/Creatinine Ratio 14.1 Glucose 119 H POC Glucose 118 H 122 H Calcium 7.7 L Phosphorus 7.0 H Magnesium 2.2 Total Bilirubin 0.3 Direct Bilirubin 0.1 AST 29 ALT 41 Alkaline Phosphatase 60 Troponin I High Sens Total Protein 5.3 L D Albumin 2.7 L 09/10/22 09/10/22 09/10/22 03:29 05:03 07:43 WBC 9.27 RBC 3.27 L Hgb 9.6 L POC Hgb 8.2 L Hct 27.3 L POC Hct 24 L MCV 83.5 MCH 29.4 MCHC 35.2 RDW Std Deviation 44.2 RDW Coeff of Angela 14.5 Plt Count 183 MPV 10.5 Immature Gran % (Auto) 0.5 Neut % (Auto) 88.9 Lymph % (Auto) 5.9 Hubbard % (Auto) 4.6 Eos % (Auto) 0.0 Baso % (Auto) 0.1 Neut # (Auto) 8.23 H Lymph # (Auto) 0.55 L Hubbard # (Auto) 0.43 Eos # (Auto) 0.00 Baso # (Auto) 0.01 Immature Gran # (Auto) 0.05 Sample Site L Brachial POC pH 7.47 H POC pCO2 31 L POC pO2 76 L POC HCO3 23 POC Total CO2 24 POC Base Excess -1.0 ABG pH (Temp Correct) 7.470 H ABG pCO2 (Temp Corrct 31 L POC ABG pO2 at Pt Temp 77 POC ABG O2 Sat 96.0 H Tex Test Pass O2 Delivery Device Ventilator POC O2 Rate 18 POC FiO2 25 Tidal Volume 400 PEEP 5 POC Sodium 126 L Sodium POC Potassium 4.5 Potassium Chloride Carbon Dioxide Anion Gap BUN Creatinine Est Cr Clr Drug Dosing Est GFR ( Amer) Est GFR (Non-Af Amer) BUN/Creatinine Ratio Glucose POC Glucose Calcium Phosphorus Magnesium Total Bilirubin Direct Bilirubin AST ALT Alkaline Phosphatase Troponin I High Sens 1940.4 H* D Total Protein Albumin 09/10/22 07:51 WBC RBC Hgb POC Hgb Hct POC Hct MCV MCH MCHC RDW Std Deviation RDW Coeff of Angela Plt Count MPV Immature Gran % (Auto) Neut % (Auto) Lymph % (Auto) Hubbard % (Auto) Eos % (Auto) Baso % (Auto) Neut # (Auto) Lymph # (Auto) Hubbard # (Auto) Eos # (Auto) Baso # (Auto) Immature Gran # (Auto) Sample Site POC pH POC pCO2 POC pO2 POC HCO3 POC Total CO2 POC Base Excess ABG pH (Temp Correct) ABG pCO2 (Temp Corrct POC ABG pO2 at Pt Temp POC ABG O2 Sat Tex Test O2 Delivery Device POC O2 Rate POC FiO2 Tidal Volume PEEP POC Sodium Sodium POC Potassium Potassium Chloride Carbon Dioxide Anion Gap BUN Creatinine Est Cr Clr Drug Dosing Est GFR ( Amer) Est GFR (Non-Af Amer) BUN/Creatinine Ratio Glucose POC Glucose 151 H Calcium Phosphorus Magnesium Total Bilirubin Direct Bilirubin AST ALT Alkaline Phosphatase Troponin I High Sens Total Protein Albumin PG Care Time/CCT Total # of Minutes Spent Total Time Spent with Patient: Total time spent is greater than 50% in coordination of care (as documented) at patient's floor/unit and/or counseling patient: Coding Level of Care Code 72997 SUB INP/OBS CARE 3/50MIN Diagnoses Acute renal failure N17.9 Acute renal failure type: unspecified Acute respiratory failure with hypoxia and hypercarbia J96.01; J96.02 PAD (peripheral artery disease) I73.9 (1) Acute renal failure Acute renal failure type: unspecified Qualified Code(s): N17.9 - Acute kidney failure, unspecified
--- NOTE | 2022-09-10 18:34 | Hospitalist Progress Note ---
Date of Service September 10, 2022 Assessment & Plan (1) Encounter for end of life care: Plan: Patient with progressive renal failure due to poor extubation family wishes placed on comfort care he is on continuous infusion of opiates at this time. Remainder of hospital stay as documented below This is expected in the hospital (2) Acute hypoxemic respiratory failure: Plan: Patient is a 77-year-old female with a past medical history of PAD, COPD, generalized weakness, low back pain, current tobacco use, hypertension, and hyperlipidemia who presents to the emergency department for evaluation of dyspne a. Pt is currently intubated and sedated. Hemodynamically stable. Pt transferred to the ICU for critical care and management. (3) COPD (chronic obstructive pulmonary disease): Plan: -Typically on ipratropium bromide qid at home, albuterol prn (4) Respiratory acidosis with metabolic acidosis: Plan: -Secondary to respiratory failure and N/V -received bicarb in ED (5) Elevated troponin: Plan: secondary to demand ischemia due to recent critical illness (6) Acute renal failure: Plan: -Acute renal failure with progression of improvement and is not wish to pursue dialysis at this time Plan Patient comfort measures expected to pass Admission and Anticipated Discharge Date Admission Date: September 09, 2022 Subjective Patient is currently family she appears comfortable she is having occasional pauses of respiration Physical Exam Physical Exam: Patient appears appears comfortable Results & Data Results & Data Vital Signs (Past 12 Hours) Vital Signs Temp Pulse Pulse Resp BP Pulse Ox O2 Del Method 09/10/22 10:08 119 H 26 H Nasal Cannula 09/10/22 10:04 123 H 28 H 94 Nasal Cannula 09/10/22 09:00 99.1 F 99 H 26 H 91 09/10/22 09:00 179/74 H 09/10/22 08:01 176/59 H 09/10/22 08:01 98.8 F 97 H 29 H 94 09/10/22 08:00 98.8 F 93 H 21 93 09/10/22 07:01 98.4 F 98 H 27 H 95 09/10/22 07:01 153/62 H 09/10/22 07:00 98.6 F 84 16 97 09/10/22 08:00 Mechanical Vent 09/10/22 08:00 09/10/22 07:26 84 22 95 09/10/22 07:21 83 19 97 O2 Flow Rate FiO2 09/10/22 10:08 6 09/10/22 10:04 6 09/10/22 09:00 09/10/22 09:00 09/10/22 08:01 09/10/22 08:01 09/10/22 08:00 09/10/22 07:01 09/10/22 07:01 09/10/22 07:00 09/10/22 08:00 25 09/10/22 08:00 25 09/10/22 07:26 25 09/10/22 07:21 25 PG Care Time/CCT Total # of Minutes Spent Total Time Spent with Patient: Total time spent is greater than 50% in coordination of care (as documented) at patient's floor/unit and/or counseling patient: Coding Level of Care Code 60071 SUB INP/OBS CARE 2/35MIN Diagnoses Encounter for end of life care Z51.5 Acute hypoxemic respiratory failure J96.01 COPD (chronic obstructive pulmonary disease) J44.9 Respiratory acidosis with metabolic acidosis E87.4 Elevated troponin R77.8 Acute renal failure N17.9 Acute renal failure type: unspecified (6) Acute renal failure Acute renal failure type: unspecified Qualified Code(s): N17.9 - Acute kidney failure, unspecified
--- NOTE | 2022-09-11 03:09 | Death Pronouncement Note ---
Date of Service September 11, 2022 Pronouncement Note Admission Date Admission Date: September 09, 2022 Date and Time of Date of : 09/11/22 Time of : 02:40 PCOD Preliminary cause of : Respiratory failure with hypoxia Contributing Factors (1) Encounter for end of life care: (2) Acute hypoxemic respiratory failure: (3) COPD (chronic obstructive pulmonary disease): (4) Respiratory acidosis with metabolic acidosis: (5) Elevated troponin: (6) Acute renal failure: Additional Data Confirmation of : no pulse, no respirations, no heart sounds and pupils fixed and dilated Family: at bedside Attending/PCP notified?: Yes Attending physician: Car Vigil MD
--- NOTE | 2022-09-11 05:08 | Electrocardiogram Report ---
Test Reason : Blood Pressure : / mmHG Vent. Rate : 063 BPM Atrial Rate : 063 BPM P-R Int : 196 ms QRS Dur : 078 ms QT Int : 400 ms P-R-T Axes : 070 059 100 degrees QTc Int : 409 ms Normal sinus rhythm Cannot rule out Anterior infarct , age undetermined Abnormal ECG When compared with ECG of 07-MAR-2022 11:51, Minimal criteria for Inferior infarct are no longer Present Confirmed by Magdy Galeano ([id number]) on 09/11/2022 5:08:46 AM Referred By: REFERRED SELF Confirmed By:Magdy Galeano
--- NOTE | 2022-09-11 05:17 | Electrocardiogram Report ---
Test Reason : Blood Pressure : / mmHG Vent. Rate : 083 BPM Atrial Rate : 083 BPM P-R Int : 196 ms QRS Dur : 100 ms QT Int : 386 ms P-R-T Axes : 080 083 050 degrees QTc Int : 453 ms Normal sinus rhythm Cannot rule out Inferior infarct , age undetermined Cannot rule out Anterior infarct (cited on or before 08-SEP-2022) Nonspecific ST abnormality Abnormal ECG When compared with ECG of 08-SEP-2022 21:01, Minimal criteria for Inferior infarct are now Present Confirmed by Magdy Galeano ([id number]) on 09/11/2022 5:16:26 AM Referred By: REFERRED SELF Confirmed By:Magdy Galeano
--- NOTE | 2022-09-11 05:25 | Electrocardiogram Report ---
Test Reason : Blood Pressure : / mmHG Vent. Rate : 077 BPM Atrial Rate : 077 BPM P-R Int : 224 ms QRS Dur : 092 ms QT Int : 432 ms P-R-T Axes : 058 024 067 degrees QTc Int : 488 ms Sinus rhythm with 1st degree A-V block Cannot rule out Anterior infarct (cited on or before 08-SEP-2022) Prolonged QT Abnormal ECG When compared with ECG of 09-SEP-2022 00:15, Minimal criteria for Inferior infarct are no longer Present Confirmed by Magdy Galeano ([id number]) on 09/11/2022 5:25:22 AM Referred By: REFERRED SELF Confirmed By:Magdy Galeano
--- NOTE | 2022-09-11 08:51 | Discharge Summary ---
Date of Service September 11, 2022 Admission HPI Per Admitting Provider Patient is a 77-year-old female with a past medical history of PAD, COPD, generalized weakness, low back pain, current tobacco use, hypertension, and hyperlipidemia who presents to the emergency department for evaluation of dyspnea. No meaningful HPI gathered at this time as the patient is currently intubated and sedated. Entirety of HPI is gathered from ED provider. Patient came in short of breath and was brought back to the emergency department patient was initially placed on BiPAP. Patient was to have CT imaging of the abdomen and after returning from imaging, patient placed back on BiPAP and patient proceeded to vomit in the mask and was sequentially intubated due to impending respiratory failure. It is at this time that the automotive parts coordinator was consulted for evaluation and management. Principal Diagnosis Patient at 0240 hrs. on 09/11/2022 from acute respiratory failure with hypoxia secondary to acute renal failure Patient was on comfort measures prior to infusion of opioids Discharge Exam Patient was examined and pronounced by Robert Leach DO Discharge Data Allergies Allergy/AdvReac Type Severity Reaction Status Date / Time No Known Allergies Allergy Verified 09/08/22 21:57 Consultations 09/09/22 00:51 ED Decision to Admit Stat 09/09/22 03:00 Consult Pilates Coordinator Routine Consult Nephrology Routine 09/09/22 03:24 Consult Nutrition Routine 09/09/22 09:12 Consult Cardiology Routine Consult Palliative Care Routine Ordered Studies 09/08/22 22:46 CT abd pelvis wo con Stat Hospital Course (1) Encounter for end of life care: Patient with progressive respiratory failure renal failure. Placed on comfort measures (2) Acute hypoxemic respiratory failure: Patient was intubated for respiratory failure extubated did poorly family did not wish to reintubate and was placed on comfort care measures this is likely due to underlying COPD (3) Elevated troponin: Elevated troponins felt to be due to demand ischemia due to her hypoxia and respiratory failure (4) Acute renal failure: Patient is a progressive renal failure with the most oliguria this is likely ascending her demise with regard to her respiratory status Plan * Patient family have elected transition to comfort care in accordance with her wishes. Total Time Total Time Spent Total Time Spent (In Minutes): It required less than 30 minutes to prepare this patient for discharge Discharge Plan Discharge Items Patient Disposition: Other Date/Time: 09/11/22 02:40 Coding Level of Care Code 15803 IN/OBS DISCH 30 MIN/LESS Diagnoses Encounter for end of life care Z51.5 Acute hypoxemic respiratory failure J96.01 Elevated troponin R77.8 Acute renal failure N17.9 Acute renal failure type: unspecified
== END 2022-09-11 02:40 | disposition expired | DRG 208 ==
LOC: ED 20:52 → 1E 09-09 01:28 → SUATTDRO 09-09 01:28 → 1E 09-09 02:08 → 3E 09-10 22:38